=== PATIENT | female | born 1935 | race Caucasian/White ===

== ENCOUNTER 2017-07-20 00:38 | Inpatient (IN) | payer OTHER ==
[~2017-07-20] VITALS: Ht 147.3 cm; Wt 67.6 kg
[2017-07-20] VITALS (36 sets, daily range): BP systolic 54–143; BP diastolic 42–109; PULSE 88–94; TEMP 37.1–37.4; O2SAT 94–100; Ht 147.3 cm; Wt 67.6 kg
[2017-07-20] MEDS ORDERED: SODIUM CHLORIDE 0.9% 1000ML 1,000 ML IV STA (00:48)
[2017-07-20] MEDS ORDERED: ONDANSETRON INJ 2 MG/ML 2 ML VIAL ONE ×2 (01:01→12:47)
[2017-07-20] MEDS ORDERED: ONDANSETRON INJ 2 MG/ML 2 ML VIAL IV STA (01:01)
[2017-07-20] MEDS: METOPROLOL TARTRATE 1 MG/ML VIAL IV STA ×2 (01:07→01:17)
[2017-07-20] MEDS ORDERED: LORAZEPAM 2 MG/ML 1 ML VIAL IV STA (01:15)
[2017-07-20] MEDS ORDERED: ATOR-22 PO (01:50)
[2017-07-20] MEDS ORDERED: MAGN400T6 PO (01:50)
[2017-07-20] MEDS ORDERED: LISI-725 PO (01:50)
[2017-07-20] MEDS ORDERED: LEVO50TA PO (01:50)
[2017-07-20] MEDS ORDERED: AMIO200T4 PO (01:51)
[2017-07-20] MEDS ORDERED: HYDR25TA4 PO (01:51)
[2017-07-20] MEDS ORDERED: B-COTAB18 PO (01:52)
[2017-07-20] MEDS ORDERED: DOCU-94 PO (01:52)
[2017-07-20] MEDS ORDERED: CMD/25 PO (01:53)
[2017-07-20] MEDS ORDERED: ACET-749 PO (01:53)
[2017-07-20 02:00] LABS: URINE APPEARANCE TURBID (CLEAR); URINE BILIRUBIN NEG (NEG); URINE COLOR DK YELLOW; URINE EPITHELIAL CELL AUTO >30 /lpf (0-5); URINE NITRITE NEG (NEG); URINE SPECIFIC GRAVITY 1.025 (1.000-1.030); UROBILINOGEN NEG (NEG)
[2017-07-20 02:02] LABS: HEMATOCRIT 35.8 % (37-47); MEAN CELL VOLUME 93.7 fL (80-100); MEAN CORPUSCULAR HEMOGLOBIN 29.1 pg (25-34); MEAN PLATELET VOLUME 9.9 fL (7.4-10.4); PLATELET COUNT 176 K/uL (130-400); RED BLOOD COUNT 3.82 M/uL (4.2-5.4); WHITE BLOOD COUNT 13.97 K/uL (4.8-10.8)
[2017-07-20 02:04] LABS: MANUAL MICROSCOPIC REQUIRED? NO; REVIEW REQ? NO
[2017-07-20 02:13] LABS: INR 2.2 (0.9-1.1); PROTHROMBIN TIME (PATIENT) 23.9 SECONDS (9.0-12.0)
[2017-07-20 02:20] LABS: ALT/SGPT 43 U/L (12-78); AST/SGOT 37 U/L (15-37); BLOOD UREA NITROGEN 25 mg/dl (7-18); BUN/CREATININE RATIO 16.7 (10-20); CALCIUM 7.6 mg/dl (8.5-10.1); CARBON DIOXIDE 25 mmol/L (21-32); CHLORIDE 112 mmol/L (98-107); GLUCOSE 157 mg/dl (70-99); MAGNESIUM 1.3 mg/dl (1.8-2.4); POTASSIUM 3.3 mmol/L (3.5-5.1); SODIUM 144 mmol/L (136-145)
[2017-07-20 02:31] LABS: ALKALINE PHOSPHATASE 146 U/L (45-117)
[2017-07-20] MEDS ORDERED: NURSING VERBAL MED ORDER ONE ×3 (03:00→16:15)
--- NOTE | 2017-07-20 03:03 | EMERGENCY ROOM VISIT NOTE ---
History Report prepared by Shemar: Gulshan Jacobs Under the Supervision of: Dr. Zeferino Isidro M.D. First contact with patient: 00:42 Chief Complaint: HIP PAIN Stated Complaint: TRANSFER-HIP FRACTURE History of Present Illness The patient is a 82 year old female who presents to the Emergency Room by EMS with complaints of constant left hip pain beginning after a fall occurring earlier today. She was transferred from [facility] ED after being found to have a left hip fracture. She was given 2 mg of Dilaudid while there. The patient also complains of nausea. She denies any chest pain. She has a history of a-fib. The patient's fall was witnessed by her son. He reported that the patient was only on the ground for a brief period of time. The patient's daughter notes that the patient has a history of many fractures due to osteoporosis and multiple falls. Source of History: patient Onset: earlier today Position: pelvis (left hip) Timing: constant Associated Symptoms: + nausea, No chest pain Review of Systems See HPI for pertinent positives & negatives. A total of 10 systems reviewed and were otherwise negative. Past Medical & Surgical Medical Problems: (1) Atrial fibrillation (2) Atrial fibrillation with rapid ventricular response Family History No pertinent family history stated. Social History Occupation Status: retired Current/Historical Medications Scheduled Amiodarone Hcl (Cordarone), 200 MG PO DAILY Atorvastatin (Lipitor), 20 MG PO DAILY B-Complex Vitamins (Vitamin B Complex), 1 TAB PO daily @ noon Docusate Sodium (Colace), 100 MG PO DAILY Hydrochlorothiazide (Hctz), 25 MG PO DAILY Levothyroxine Sodium (Synthroid), 50 MCG PO DAILY Lisinopril (Zestril), 20 MG PO DAILY Magnesium Oxide (Mag-Ox), 400 MG PO DAILY Warfarin Sod (Coumadin), 2.5 MG PO 3XWK Scheduled PRN Acetaminophen/Codeine (Tylenol W/Codeine #3), 2 TAB PO Q4 PRN for Pain Allergies Coded Allergies: No Known Allergies (Unverified , 07/20/17) Physical Exam Vital Signs Date Time Temp Pulse Resp B/P (MAP) Pulse Ox O2 Delivery O2 Flow Rate FiO2 07/20/17 03:36 105 17 100 Nasal Cannula 3.0 07/20/17 03:31 122/74 07/20/17 03:07 101 16 100 Nasal Cannula 3.0 07/20/17 03:01 123/84 07/20/17 02:37 107 16 100 Nasal Cannula 3.0 07/20/17 02:31 116/87 07/20/17 02:30 108 20 116/87 100 07/20/17 02:07 112 12 100 Nasal Cannula 3.0 07/20/17 01:37 90 14 98 Nasal Cannula 3.0 07/20/17 01:34 93 Nasal Cannula 3.0 07/20/17 01:33 94 Nasal Cannula 3.0 07/20/17 01:32 100 17 83 Room Air 07/20/17 01:31 133/85 07/20/17 01:30 94 14 92 07/20/17 01:28 99 15 07/20/17 01:26 78 19 07/20/17 01:24 95 16 92 07/20/17 01:22 96 24 07/20/17 01:20 93 25 07/20/17 01:19 130/71 07/20/17 01:18 95 91 07/20/17 01:17 128/87 07/20/17 01:17 114 104/67 07/20/17 01:16 101 19 91 07/20/17 01:15 121/66 07/20/17 01:14 88 18 91 07/20/17 01:13 114/69 07/20/17 01:12 101 16 07/20/17 01:10 103 14 94 07/20/17 01:09 104/68 07/20/17 01:08 121 15 97 07/20/17 01:06 133 20 92 07/20/17 01:04 128 21 95 07/20/17 01:02 142 21 95 07/20/17 01:00 141 19 103/85 90 07/20/17 00:58 145 21 94 07/20/17 00:56 147 16 94 07/20/17 00:54 150 24 Room Air 07/20/17 00:52 137 20 91 07/20/17 00:50 146 21 Room Air 07/20/17 00:48 145 12 94 07/20/17 00:47 147 07/20/17 00:46 149 15 93 07/20/17 00:42 100/65 07/20/17 00:38 36.7 127 18 100/65 93 Room Air Physical Exam GENERAL: Patient is sleepy and nauseous appearing, and in no acute distress. HEENT: No acute trauma, normocephalic atraumatic, mucous membranes moist, no nasal congestion, no scleral icterus. NECK: No stridor, no adenopathy, no meningismus, trachea is midline. LUNGS: No dyspnea. Clear to auscultation and equal bilaterally. No wheeze, no rhonchi. HEART: Tachycardic rate with an irregular rhythm. No murmurs, rubs, gallops appreciated. ABDOMEN: Soft, nontender, bowel sounds positive, no masses appreciated, no peritonitis. BACK: No midline tenderness, no CVA tenderness EXTREMITIES: No cyanosis, no edema. Mild shortening and internal rotation of the left leg. NEUROLOGIC: Alert and oriented, no acute motor or sensory deficits, no focal weakness, cranial nerves grossly intact. SKIN: No rash, no jaundice, no diaphoresis. Medical Decision & Procedures ER Provider Diagnostic Interpretation: One View Chest X-ray interpreted by me: Rotated. Moderate cardiomegaly. Mild CHF findings. No acute infiltrate, effusion, or fracture appreciated. One View Pelvis X-ray interpreted by me: Left intratrochanteric hip fracture with mild displacement. CT results per statrad and my review. CT HEAD: No evidence of acute infarct, hemorrhage, mass effect or edema. Chronic small vessel ischemic disease and senescent changes. No acute calvarial abnormality. Mild mucosal thickening in the paranasal sinuses. Laboratory Results 07/20/17 01:52 Red Blood Count 3.82, Mean Corpuscular Volume 93.7, Mean Corpuscular Hemoglobin 29.1, Mean Corpuscular Hemoglobin Concent 31.0, Mean Platelet Volume 9.9, Neutrophils (%) (Auto) 86.1, Lymphocytes (%) (Auto) 4.9, Monocytes (%) (Auto) 8.5, Eosinophils (%) (Auto) 0.0, Basophils (%) (Auto) 0.1, Neutrophils # (Auto) 12.04, Lymphocytes # (Auto) 0.68, Monocytes # (Auto) 1.19, Eosinophils # (Auto) 0.00, Basophils # (Auto) 0.01 07/20/17 01:52 Test 07/20/17 01:43 07/20/17 01:52 Urine Color DK YELLOW Urine Appearance TURBID (CLEAR) Urine pH 5.0 (4.5-7.5) Urine Specific [place] 1.025 (1.000-1.030) Urine Protein 1+ (NEG) Urine Glucose (UA) NEG (NEG) Urine Ketones TRACE (NEG) Urine Occult Blood 3+ (NEG) Urine Nitrite NEG (NEG) Urine Bilirubin NEG (NEG) Urine Urobilinogen NEG (NEG) Urine Leukocyte Esterase TRACE (NEG) Urine WBC (Auto) 10-30 /hpf (0-5) Urine RBC (Auto) >30 /hpf (0-4) Urine Hyaline Casts (Auto) 1-5 /lpf (0-5) Urine Epithelial Cells (Auto) >30 /lpf (0-5) Urine Bacteria (Auto) NEG (NEG) White Blood Count 13.97 K/uL (4.8-10.8) Red Blood Count 3.82 M/uL (4.2-5.4) Hemoglobin 11.1 g/dL (12.0-16.0) Hematocrit 35.8 % (37-47) Mean Corpuscular Volume 93.7 fL (80-100) Mean Corpuscular Hemoglobin 29.1 pg (25-34) Mean Corpuscular Hemoglobin Concent 31.0 g/dl (32-36) Platelet Count 176 K/uL (130-400) Mean Platelet Volume 9.9 fL (7.4-10.4) Neutrophils (%) (Auto) 86.1 % Lymphocytes (%) (Auto) 4.9 % Monocytes (%) (Auto) 8.5 % Eosinophils (%) (Auto) 0.0 % Basophils (%) (Auto) 0.1 % Neutrophils # (Auto) 12.04 K/uL (1.4-6.5) Lymphocytes # (Auto) 0.68 K/uL (1.2-3.4) Monocytes # (Auto) 1.19 K/uL (0.11-0.59) Eosinophils # (Auto) 0.00 K/uL (0-0.5) Basophils # (Auto) 0.01 K/uL (0-0.2) RDW Standard Deviation 44.9 fL (36.4-46.3) RDW Coefficient of Variation 13.3 % (11.5-14.5) Immature Granulocyte % (Auto) 0.4 % Immature Granulocyte # (Auto) 0.05 K/uL (0.00-0.02) Red Blood Cell Morphology Unremarkable Prothrombin Time 23.9 SECONDS (9.0-12.0) Prothromb Time International Ratio 2.2 (0.9-1.1) Anion Gap 7.0 mmol/L (3-11) Est Creatinine Clear Calc Drug Dose 22.0 ml/min Estimated GFR () 36.7 Estimated GFR (Non- 31.7 BUN/Creatinine Ratio 16.7 (10-20) Calcium Level 7.6 mg/dl (8.5-10.1) Magnesium Level 1.3 mg/dl (1.8-2.4) Total Bilirubin 0.5 mg/dl (0.2-1) Direct Bilirubin 0.1 mg/dl (0-0.2) Aspartate Amino Transf (AST/SGOT) 37 U/L (15-37) Alanine Aminotransferase (ALT/SGPT) 43 U/L (12-78) Alkaline Phosphatase 146 U/L (45-117) Troponin I < 0.015 ng/ml (0-0.045) Pro-B-Type Natriuretic Peptide 1333 pg/ml (0-1800) Total Protein 5.4 gm/dl (6.4-8.2) Albumin 2.7 gm/dl (3.4-5.0) Thyroid Stimulating Hormone (TSH) 1.930 uIu/ml (0.300-4.500) Laboratory results as reviewed by me. Medications Administered Medications (Trade) Dose Ordered Sig/Margarette Route Start Time Stop Time Status Last Admin Dose Admin Sodium Chloride 1,000 ml @ 999 mls/hr Q1H1M STAT IV 07/20/17 00:48 07/20/17 01:48 DC 07/20/17 01:05 999 MLS/HR Metoprolol Tartrate (Lopressor Iv) 5 mg NOW STAT IV 07/20/17 00:48 07/20/17 00:49 DC 07/20/17 01:17 2 MG Ondansetron HCl (Zofran Inj) 4 mg NOW STAT IV 07/20/17 01:01 07/20/17 01:02 DC 07/20/17 01:05 4 MG Lorazepam (Ativan Inj) 0.5 mg NOW STAT IV 07/20/17 01:15 07/20/17 01:16 DC 07/20/17 01:40 0.5 MG Miscellaneous Information (Nursing Verbal Med Order) 1 ea ONE ONCE N/A 07/20/17 03:00 07/20/17 03:01 DC 07/20/17 03:10 1 EA ECG Indication: other (fall) Rate (beats per minute): 115 Rhythm: atrial fibrillation (with RVR) Findings: no acute ischemic change, other (Non-specific ST changes) Comparison ECG Date: no prior available ED Course 0045: The patient was evaluated in room B7. A complete history and physical exam was performed. 0048: Ordered Lopressor 5 mg IV, Sodium Chloride 1000 ml @ 999 mls/hr. 0058: I checked in on the patient. I spoke with her daughter at bedside. She explains that the patient is currently on Amiodarone and Coumadin for her A- fib. The patient was previously on Flecainide. The patient's daughter states that the patient has not had her evening medications tonight. 0101: Ordered Zofran Inj 4 mg IV. 0115: I reassessed the patient. Her heart rate is now 85 and irregular. She is requesting her normal dose of Ativan. Ordered Ativan Inj 0.5 mg IV. 0230: Upon reevaluation, the patient is sleeping and in no distress. Discussed results and treatment plan with the patient's daughter. She verbalized understanding and agreement with the treatment plan. The patient will be evaluated for further management. Medical Decision Differential: Sepsis, Infectious (UTI/Pneumonia/Meningitis/etc), Metabolic/ Electrolyte Abnormality, Cardiac, Hepatic, Endocrine, Toxicologic, Neurologic, amongst other pathologies entertained. 82 yr old female arrives from OSH for evaluation of left hip fracture. On arrival in Afib RVR with hypotension. Given small dose Lopressor with HR improvement and IV fluids for hypotension. Zofran and then small dose ativan for persistent nausea which she already takes regularly. Films here with left intratroch fracture. INR elevated consistent with Coumadin use. Minor renal insufficiency which would presume chronic. Will need medically cleared before OR for hip fracture. Medication Reconcilliation Current Medication List: was personally reviewed by me Blood Pressure Screening Patient's blood pressure: Normal blood pressure Blood pressure disposition: Did not require urgent referral Consults Time Called: 0225 Consulting Physician: [place]. [place] [place] Call: [phone] Discussed the patient's case. The patient will be evaluated for further treatment and disposition. Impression Primary Impression: Intertrochanteric fracture of left hip Additional Impressions: Atrial fibrillation with rapid ventricular response Fall Scribe Attestation The scribe's documentation has been prepared under my direction and personally reviewed by me in its entirety. I confirm that the note above accurately reflects all work, treatment, procedures, and medical decision making performed by me. Departure Information Dispostion Being Evaluated By Hospitalist Patient Instructions My [facility] Problem Qualifiers
[2017-07-20 03:06] LABS: BASO % 0.1 %; BASO ABS # 0.01 K/uL (0-0.2); COMPLETE YES; IG% 0.4 %; LYMPH % 4.9 %; LYMPH ABS # 0.68 K/uL (1.2-3.4); MONO % 8.5 %; NEUT % 86.1 %
--- NOTE | 2017-07-20 03:34 | History and Physical ---
History & Physical Date & Time of Service: Jul 20, 2017 at 03:26 Chief Complaint: Transfer-Hip Fracture Primary Care Physician: Ty Guidry M.D. History of Present Illness Source: patient 82 y/o F Hx AF, CHF, HTN, HPL, hypothyroid. Suffered a fall earlier in day sustaining a L intertrochanteric fracture. Pt was transferred from [facility] for treatment. The pt's HR was 150 on arrival to the ER. She responded to a small dose of IV Cardizem. She denies symptoms preceding her fall such as CP, palpitations, lightheadedness. Past Medical/Surgical History Medical Problems: (1) Atrial fibrillation Status: Chronic 2) CHF - no specifics available - this may have been reported due to pulmonary edema owing to CHF rather than a reduced EF 3) HTN 4) HPL 5) Hypothyroidism 6) GERD Social History Smoking Status: Former Smoker Occupational Status: retired Allergies Coded Allergies: No Known Allergies (Unverified , 07/20/17) Home Medications Scheduled Amiodarone Hcl (Cordarone), 200 MG PO DAILY Atorvastatin (Lipitor), 20 MG PO DAILY B-Complex Vitamins (Vitamin B Complex), 1 TAB PO daily @ noon Docusate Sodium (Colace), 100 MG PO DAILY Hydrochlorothiazide (Hctz), 25 MG PO DAILY Levothyroxine Sodium (Synthroid), 50 MCG PO DAILY Lisinopril (Zestril), 20 MG PO DAILY Magnesium Oxide (Mag-Ox), 400 MG PO DAILY Warfarin Sod (Coumadin), 2.5 MG PO 3XWK Scheduled PRN Acetaminophen/Codeine (Tylenol W/Codeine #3), 2 TAB PO Q4 PRN for Pain Review of Systems Constitutional: No fever, No chills, No sweats Eyes: No worsening of vision ENT: No hearing loss, No unusual epistaxis, No nasal symptoms Respiratory: No cough, No wheezing Cardiovascular: No chest pain, No orthopnea, No PND Abdomen: No pain, No nausea, No vomiting Musculoskeletal: + joint pain, + muscle pain (Pain at L hip ) Genitourinary - Female: No dysuria, No urinary frequency, No urinary urgency Neurologic: No memory loss, No paralysis, No weakness Psychiatric: No depression symptoms Endocrine: No fatigue Hematologic / Lymphatic: No abnormal bleeding/bruising Integumentary: No rash Allergic / Immunologic: No environmental allergies Physical Exam Vital Signs Date Time Temp Pulse Resp B/P (MAP) Pulse Ox O2 Delivery O2 Flow Rate FiO2 07/20/17 02:30 108 20 116/87 100 07/20/17 01:34 93 Nasal Cannula 3.0 07/20/17 01:32 100 17 83 Room Air 07/20/17 01:31 133/85 07/20/17 01:30 94 14 92 07/20/17 01:28 99 15 07/20/17 01:26 78 19 07/20/17 01:24 95 16 92 07/20/17 01:22 96 24 07/20/17 01:20 93 25 07/20/17 01:19 130/71 07/20/17 01:18 95 91 07/20/17 01:17 128/87 07/20/17 01:17 114 104/67 07/20/17 01:16 101 19 91 07/20/17 01:15 121/66 07/20/17 01:14 88 18 91 07/20/17 01:13 114/69 07/20/17 01:12 101 16 07/20/17 01:10 103 14 94 07/20/17 01:09 104/68 07/20/17 01:08 121 15 97 07/20/17 01:06 133 20 92 07/20/17 01:04 128 21 95 07/20/17 01:02 142 21 95 07/20/17 01:00 141 19 103/85 90 07/20/17 00:58 145 21 94 07/20/17 00:56 147 16 94 07/20/17 00:54 150 24 Room Air 07/20/17 00:52 137 20 91 07/20/17 00:50 146 21 Room Air 07/20/17 00:48 145 12 94 07/20/17 00:47 147 07/20/17 00:46 149 15 93 07/20/17 00:42 100/65 07/20/17 00:38 36.7 127 18 100/65 93 Room Air General Appearance: + pertinent finding (Pleasant, elderly female in no acute distress) Head: normocephalic Eyes: normal inspection ENT: normal ENT inspection, pharynx normal, + pertinent finding (does not have teeth) Neck: supple, no JVD Respiratory/Chest: chest non-tender, lungs clear, normal breath sounds Cardiovascular: no edema, normal peripheral pulses, + irregularly irregular Abdomen/GI: normal bowel sounds, non tender, soft Back: normal inspection, no CVA tenderness Extremities/Musculoskelatal: no calf tenderness, normal capillary refill, no pedal edema, + pertinent finding (rotation of the LLe is noted ) Neurologic/Psych: music publisher II-XII nml as tested, no motor/sensory deficits, alert, oriented x 3 Skin: normal color, warm/dry Diagnostics Laboratory Results Results Past 24 Hours Test 07/20/17 01:43 07/20/17 01:52 Range/Units Urine Color DK YELLOW Urine Appearance TURBID CLEAR Urine pH 5.0 4.5-7.5 Urine Specific [place] 1.025 1.000-1.030 Urine Protein 1+ NEG Urine Glucose (UA) NEG NEG Urine Ketones TRACE NEG Urine Occult Blood 3+ NEG Urine Nitrite NEG NEG Urine Bilirubin NEG NEG Urine Urobilinogen NEG NEG Urine Leukocyte Esterase TRACE NEG Urine WBC (Auto) 10-30 0-5 /hpf Urine RBC (Auto) >30 0-4 /hpf Urine Hyaline Casts (Auto) 1-5 0-5 /lpf Urine Epithelial Cells (Auto) >30 0-5 /lpf Urine Bacteria (Auto) NEG NEG White Blood Count 13.97 4.8-10.8 K/uL Red Blood Count 3.82 4.2-5.4 M/uL Hemoglobin 11.1 12.0-16.0 g/dL Hematocrit 35.8 37-47 % Mean Corpuscular Volume 93.7 80-100 fL Mean Corpuscular Hemoglobin 29.1 25-34 pg Mean Corpuscular Hemoglobin Concent 31.0 32-36 g/dl Platelet Count 176 130-400 K/uL Mean Platelet Volume 9.9 7.4-10.4 fL Neutrophils (%) (Auto) 86.1 % Lymphocytes (%) (Auto) 4.9 % Monocytes (%) (Auto) 8.5 % Eosinophils (%) (Auto) 0.0 % Basophils (%) (Auto) 0.1 % Neutrophils # (Auto) 12.04 1.4-6.5 K/uL Lymphocytes # (Auto) 0.68 1.2-3.4 K/uL Monocytes # (Auto) 1.19 0.11-0.59 K/uL Eosinophils # (Auto) 0.00 0-0.5 K/uL Basophils # (Auto) 0.01 0-0.2 K/uL RDW Standard Deviation 44.9 36.4-46.3 fL RDW Coefficient of Variation 13.3 11.5-14.5 % Immature Granulocyte % (Auto) 0.4 % Immature Granulocyte # (Auto) 0.05 0.00-0.02 K/uL Red Blood Cell Morphology Unremarkable Prothrombin Time 23.9 9.0-12.0 SECONDS Prothromb Time International Ratio 2.2 0.9-1.1 Sodium Level 144 136-145 mmol/L Potassium Level 3.3 3.5-5.1 mmol/L Chloride Level 112 98-107 mmol/L Carbon Dioxide Level 25 21-32 mmol/L Anion Gap 7.0 3-11 mmol/L Blood Urea Nitrogen 25 7-18 mg/dl Creatinine 1.50 0.60-1.20 mg/dl Est Creatinine Clear Calc Drug Dose 22.0 ml/min Estimated GFR () 36.7 Estimated GFR (Non- 31.7 BUN/Creatinine Ratio 16.7 10-20 Random Glucose 157 70-99 mg/dl Calcium Level 7.6 8.5-10.1 mg/dl Magnesium Level 1.3 1.8-2.4 mg/dl Total Bilirubin 0.5 0.2-1 mg/dl Direct Bilirubin 0.1 0-0.2 mg/dl Aspartate Amino Transf (AST/SGOT) 37 15-37 U/L Alanine Aminotransferase (ALT/SGPT) 43 12-78 U/L Alkaline Phosphatase 146 45-117 U/L Troponin I < 0.015 0-0.045 ng/ml Pro-B-Type Natriuretic Peptide 1333 0-1800 pg/ml Total Protein 5.4 6.4-8.2 gm/dl Albumin 2.7 3.4-5.0 gm/dl Thyroid Stimulating Hormone (TSH) 1.930 0.300-4.500 uIu/ml Diagnostic Radiology XR: L intertrochanteric fracture - mildly displaced EKG AF, RVR - no evidence of acute ischemia Impression Assessment and Plan 82 y/o F Hx AF, CHF, HTN, HPL, TIA, hypothyroid. Suffered a fall earlier in day sustaining a L intertrochanteric fracture. Pt was transferred from [facility] for treatment. The pt's HR was 150 on arrival to the ER. She responded to a small dose of IV Cardizem. 1) Hip fracture - L intertroch. Pt to be evaluated by orthopedics. We will provide her with a dose of vitamin K. She may need plasma if surgery is to take place later in the day. I do not feel we can accurately assess her based on available information and she states that she has not seen a acquisitions logistics analyst in > 2 years. We will therefore order a complete echo AM and if abnormalities are confirmed such as a reduced EF, it would be prudent to obtain a cardiology consult. Based on available information her RCRI would be 6.6%. This may be higher if CHF is confirmed and it is presumed due to ischemia, or lower if her EF is normal. 2) HTN - HCTZ and Lisinopril are held pending ortho eval - can be given AM if surgery is postponed. 3) AF - she is normally treated with Amio which we will continue - her rapid rate resolved with a low dose of Diltiazem. Her INR is therapeutic on her current dose of Coumadin. 4) HPL - cont Statin 5) Hx TIA - ASA held - cont Statin therapy 6) Creatinine is elevated at 1.5 - unclear if this is chronic - we will provide IVF and repeat AM - may need to contact her MD for baseline. Full code - Coumadin prophylaxis Total time for this admit including review of labs, meds, imaging, EKG - review of chart from [facility] - discussion with pt, daughter and ER attending 39 min Level of Care Telemetry Resuscitation Status FULL RESUSCITATION VTE Prophylaxis Given or contraindicated: Warfarin (Coumadin)
[2017-07-20] MEDS ORDERED: NALOXONE HCL 0.4 MG/1 ML VIAL/CARP IV PRN (03:45)
[2017-07-20] MEDS ORDERED: SOD PHOSPHATE/SOD BIPHOSPHATE ENEMA 132 ML BTL PR PRN (03:45)
[2017-07-20] MEDS ORDERED: MAGNESIUM HYDROXIDE SUSP 30 ML UDC PO PRN (03:45)
[2017-07-20] MEDS ORDERED: MoRPHine SULFATE 4 MG/ML 1 ML CARP\\VIAL IV PRN (03:45)
[2017-07-20] MEDS ORDERED: OXYCODONE HCL IR 5 MG TAB (IMMEDIATE RELEASE) PO PRN ×3 (03:45→17:30)
[2017-07-20] MEDS ORDERED: POLYETHYLENE (MIRALAX) 17 GM PACK PO PRN (03:45)
[2017-07-20] MEDS ORDERED: BISACODYL 10 MG SUPP PR PRN (03:45)
[2017-07-20] MEDS ORDERED: PHYTONADIONE INJ 5 MG in SODIUM CHLORIDE 0.9% 50ML 50 ML IV ONE (04:00)
[2017-07-20] MEDS ORDERED: NSS + 20MEQ KCL 1000ML 1,000 ML IV SCH (04:30)
[2017-07-20] MEDS ORDERED: CEFAZOLIN IV 2,000 MG in DEXTROSE 5% 50ML 50 ML IV SCH (06:00)
--- NOTE | 2017-07-20 06:35 | DIAGNOSTIC IMAGING REPORT ---
CT HEAD WITHOUT CONTRAST (CT) CLINICAL HISTORY: Head trauma. Patient on Coumadin. COMPARISON STUDY: No previous studies for comparison. TECHNIQUE: Axial CT of the brain is performed from the vertex to the skull base. IV contrast was not administered for this examination. A dose lowering technique was utilized adhering to the principles of ALARA. CT DOSE: 537.48 mGy.cm FINDINGS: No intra or extra-axial mass lesions are visualized. There is no CT evidence of acute cortical infarction. There is no evidence of midline shift. There is no acute hemorrhage. No calvarial fractures are visualized. There are minor white matter hypodensities likely on a small vessel basis. There is no evidence of pathologic ventricular dilatation. There is mucosal thickening within the sphenoid maxillary ethmoid and frontal sinuses. There are polypoid densities of the nasal cavity. IMPRESSION: No acute intracranial findings Electronically signed by: Greg Bernabe M.D. 07/20/2017 6:33 AM Dictated Date/Time: 07/20/2017 6:32 AM
--- NOTE | 2017-07-20 06:57 | DIAGNOSTIC IMAGING REPORT ---
CHEST ONE VIEW PORTABLE CLINICAL HISTORY: 82 years-old Female presenting with Fall/Trauma. TECHNIQUE: Portable upright AP view of the chest was obtained. COMPARISON: None. FINDINGS: Mildly low lung volumes with prominence of the artifacts silhouette. Suggestion of hazy bilateral lung opacities with linear opacities at the left lung base. Osteopenia. Degenerative changes of the spine with the curvature in the upper lumbar region. Upper abdomen normal. IMPRESSION: 1. Mildly low lung volumes with hypoventilatory changes. Apparent hazy bilateral opacities could relate to overlapping structures secondary to patient body habitus. Left basilar atelectasis. Electronically signed by: Shaun Allison M.D. 07/20/2017 6:56 AM Dictated Date/Time: 07/20/2017 6:54 AM
[2017-07-20 06:58] LABS: HEMATOCRIT 32.4 % (37-47); MEAN CORPUSCULAR HEMOGLOBIN 30.1 pg (25-34); MEAN CORPUSCULAR HGB CONC 32.7 g/dl (32-36); MEAN PLATELET VOLUME 9.9 fL (7.4-10.4); PLATELET COUNT 147 K/uL (130-400); RED BLOOD COUNT 3.52 M/uL (4.2-5.4); WHITE BLOOD COUNT 11.82 K/uL (4.8-10.8)
--- NOTE | 2017-07-20 07:08 | DIAGNOSTIC IMAGING REPORT ---
PELVIS 1 OR 2 VIEW ROUTINE CLINICAL HISTORY: 82 years-old Female presenting with fall/trauma, known left hip fracture. TECHNIQUE: Single frontal view of the pelvis was obtained. COMPARISON: Correlation made to plain radiographs of the left hip performed the previous day at an outside hospital. FINDINGS: Osteopenia suggested. Evidence of an intertrochanteric left femoral neck fracture with up to 8 mm of diastases at the fracture plane. No abnormal angulation. Femoral heads remains congruent in the acetabula. No additional pelvic fracture is evident. IMPRESSION: Redemonstration of the intertrochanteric left femoral neck fracture with up to 8 mm of diastases at the fracture plane. Electronically signed by: Shaun Allison M.D. 07/20/2017 7:06 AM Dictated Date/Time: 07/20/2017 7:04 AM
[2017-07-20 07:15] LABS: BUN/CREATININE RATIO 16.1 (10-20); CALCIUM 8.3 mg/dl (8.5-10.1); CREATININE 1.5 mg/dl (0.60-1.20); MAGNESIUM 1.5 mg/dl (1.8-2.4); POTASSIUM 3.6 mmol/L (3.5-5.1)
[2017-07-20 07:23] LABS: INR 1.6 (0.9-1.1); PROTHROMBIN TIME (PATIENT) 17.8 SECONDS (9.0-12.0)
[2017-07-20] MEDS ORDERED: PERFLUTREN LIPID MICROSPHERE (DEFINITY) IV ONE (08:58)
[2017-07-20] MEDS ORDERED: MAGNESIUM SULFATE 1GM / D5W 1 GM BAG IV STA (09:14)
[2017-07-20] MEDS: AMIODARONE 200 MG TAB PO SCH (09:38)
[2017-07-20] MEDS: DOCUSATE SODIUM 100 MG CAP PO SCH (09:38)
[2017-07-20] MEDS: MAGNESIUM OXIDE 400 MG TAB PO SCH (09:39)
[2017-07-20] MEDS: ATORVASTATIN 20 MG TAB PO SCH (09:39)
[2017-07-20] MEDS: LEVOTHYROXINE 50 MCG TAB PO SCH (09:39)
[2017-07-20] MEDS: MoRPHine SULFATE 2 MG/ML CARP IV PRN ×3 (09:47→14:25)
[2017-07-20] MEDS: MAGNESIUM SULFATE 1GM / D5W 1 GM in PREMIXED IN D5W 100 ML IV SCH ×2 (10:28→11:37)
[2017-07-20] MEDS ORDERED: PNEUMOCOCCAL POLYSACCHARIDES 25 MCG/0.5 ML VIAL/SYR IM. ONE (12:00)
[2017-07-20] MEDS ORDERED: PNEUMOCOCCAL ADMINISTRATION CHARGE ONE (12:00)
[2017-07-20] MEDS ORDERED: CEFAZOLIN 2000 MG/60 ML D5W IV SCH (13:30)
--- NOTE | 2017-07-20 13:35 | ECHOCARDIOGRAM REPORT ---
*NOTICE TO RECEIVING REPUBLICAN AGENCY This information is strictly Confidential and protected under [place] law. [place] law prohibits you from making any further disclosure of this information unless further disclosure is expressly permitted by the written consent of the person to whom it pertains or is authorized by law. A general authorization for the release of medical or other information is not sufficient for this purpose. Hospital accepts no responsibility if the information is made available to any other person, INCLUDING THE PATIENT. Interpretation Summary * Name: LUIS VYAS Study Date: 07/20/2017 08:33 AM BP: 100/56 mmHg * Patient Location: C.EDINP\S\EDINP 1\S\1 HR: 83 * : 1935 (M/d/yyy) Gender: Female * Age: 82 yrs Ethnicity: CA Weight: 139 lb * Ordering Physician: Isaias Hurtado * Performed By: Lauren López * * Reason For Study: CHF * -- Conclusions -- * The study was technically difficult. * Limited views were obtained. * Left ventricular systolic function is normal. * There are regional wall motion abnormalities as specified. * Aortic valve sclerosis mild, without significant aortic valvular stenosis. * Mild aortic regurgitation. * Right ventricular systolic pressure is elevated at 30-40mmHg. Procedure Details * A complete two-dimensional transthoracic echocardiogram was performed (2D, M-mode, Doppler and color flow Doppler). * The study was technically difficult. * There were technical limitations due to patient'spoor positioning * A contrast injection of Definity was performed to improve assessment of LV function. * Contrast was injected into an intravenous site in the left arm. * One vial of Definity ultrasound contrast was diluted in normal saline to a total volume of 10 ml. A total of '3' ml of solution was administered during imaging. * Lot # [id number] of Definity utilized for procedure. * Expiration date 08/24. * The attending nurse who injected the contrast agent was GORGE SIDDIQI RN. * Limited views were obtained. Left Ventricle * Ejection Fraction = 60-65%. * Left ventricular systolic function is normal. * There are regional wall motion abnormalities as specified. * Basal posterior segment is dyskinetic. Mitral Valve * The mitral valve is not well visualized. Tricuspid Valve * The tricuspid valve is not well visualized. * There is mild tricuspid regurgitation. * Right ventricular systolic pressure is elevated at 30-40mmHg. Aortic Valve * The aortic valve is trileaflet. * Aortic valve sclerosis mild, without significant aortic valvular stenosis. * No hemodynamically significant valvular aortic stenosis. * Mild aortic regurgitation. Pericardium/Pleural * There is no pericardial effusion. MMode 2D Measurements and Calculations IVSd 1.5 cm IVSs 1.4 cm LVIDd 2.9 cm LVIDs 2.0 cm LVPWd 0.41 cm LVPWs 1.1 cm IVS/LVPW 3.8 FS 31.6 % EDV(Teich) 33.0 ml ESV(Teich) 12.8 ml EF(Teich) 61.3 % EDV(cubed) 25.1 ml ESV(cubed) 8.0 ml EF(cubed) 68.0 % % IVS thick -9.56 % % LVPW thick 170.9 % LV mass(C)d 76.6 grams LV mass(C)s 69.9 grams SV(Teich) 20.2 ml SV(cubed) 17.1 ml ACS 1.0 cm asc Aorta Diam 2.4 cm LVOT diam 1.4 cm LVOT area 1.5 cm\S\2 LVAd ap4 22.1 cm\S\2 LVLd ap4 6.6 cm EDV(MOD-sp4) 62.4 ml EDV(sp4-el) 62.4 ml LVAs ap4 11.0 cm\S\2 LVLs ap4 4.9 cm ESV(MOD-sp4) 19.8 ml ESV(sp4-el) 20.7 ml EF(MOD-sp4) 68.2 % EF(sp4-el) 66.8 % LVAd ap2 17.9 cm\S\2 LVLd ap2 6.3 cm EDV(MOD-sp2) 42.8 ml EDV(sp2-el) 42.8 ml LVAs ap2 9.9 cm\S\2 LVLs ap2 5.2 cm ESV(MOD-sp2) 16.7 ml ESV(sp2-el) 16.1 ml EF(MOD-sp2) 61.0 % EF(sp2-el) 62.3 % LVLd %diff -4.46 % EDV(MOD-bp) 52.5 ml LVLs %diff 4.8 % ESV(MOD-bp) 17.9 ml EF(MOD-bp) 65.9 % SV(MOD-sp4) 42.5 ml SV(MOD-sp2) 26.1 ml SV(MOD-bp) 34.6 ml SV(sp4-el) 41.7 ml SV(sp2-el) 26.7 ml Doppler Measurements and Calculations MV E max eder 86.8 cm/sec MV A max eder 37.2 cm/sec MV E/A 2.3 MV dec time 0.12 sec Ao V2 max 135.1 cm/sec Ao max PG 7.3 mmHg Ao max PG (full) 5.7 mmHg SANDHYA(V,A) 0.72 cm\S\2 SANDHYA(V,D) 0.72 cm\S\2 AI max eder 341.7 cm/sec AI max PG 46.7 mmHg AI dec slope 131.9 cm/sec\S\2 AI P1/2t 758.5 msec LV V1 max PG 1.6 mmHg LV V1 max 64.2 cm/sec PA V2 max 69.5 cm/sec PA max PG 1.9 mmHg TR max eder 289.6 cm/sec
--- NOTE | 2017-07-20 14:46 | DIAGNOSTIC IMAGING REPORT ---
KUB CLINICAL HISTORY: 82 years-old Female presenting with r/o ileus, etc. TECHNIQUE: Single supine view of the abdomen was obtained. COMPARISON: None. FINDINGS: Image quality is limited due to patient body habitus. Within this limitation, nonobstructive bowel gas pattern. No gross pneumoperitoneum. Scoliotic curvature of the lumbar spine. Osteopenia may be present. Intertrochanteric fracture of the left femoral neck again noted with approximate 8 mm of diastases at the fracture plane. IMPRESSION: 1. No convincing evidence of bowel obstruction or ileus allowing for limited image quality. Electronically signed by: Shaun Allison M.D. 07/20/2017 2:44 PM Dictated Date/Time: 07/20/2017 2:42 PM
[2017-07-20] MEDS ORDERED: FENTANYL CITRATE INJ 50 MCG/1 ML 2 ML VIAL ONE ×2 (14:49→18:41)
[2017-07-20] MEDS ORDERED: PROPOFOL IV EMULSION 10 MG/ML 20 ML VIAL IV ONE (14:49)
[2017-07-20] MEDS ORDERED: LIDOCAINE HCL 2% 2 ML VIAL (20MG/ML) ONE (14:49)
[2017-07-20] MEDS ORDERED: ROCURONIUM BROMIDE 10 MG/ML 5 ML VIAL IV ONE (14:50)
--- NOTE | 2017-07-20 15:13 | CONSULTATION REPORT ---
DATE OF CONSULTATION: 07/20/2017 DATE OF CONSULTATION: 07/20/2017 CHIEF COMPLAINT: Left hip injury. HISTORY OF PRESENT ILLNESS: This is an 82-year-old female who sustained a fall at her home last evening. She noted having significant hip pain and unable to ambulate. She was transported to the Emergency Department where she was diagnosed with an intratrochanteric hip fracture on the left. PAST MEDICAL HISTORY: Atrial fibrillation, CHF, hypertension, hyperlipidemia, hypothyroidism and GERD. LABORATORY DATA: Laboratory studies on admission, white cells 11.82, BUN 24, creatinine 1.5, INR is 1.6 after some vitamin K. HOME MEDICATIONS: Please see admitting teams history and physical. REVIEW OF SYSTEMS: The patient denied any head injury or any other joint injuries as a result of her fall. SOCIAL HISTORY: She is a former smoker, nondrinker. She is retired, living at home. PHYSICAL EXAMINATION: VITAL SIGNS: Temperature 37.2, pulse 94, respiration rate 20, blood pressure 115/71, pulse ox 96 with nasal cannula. GENERAL: Well-developed, well-nourished 82-year-old female in no acute distress. She is alert and oriented. She is somewhat sleepy but she does answer appropriately. HEAD, EYES, EARS, NOSE, AND THROAT: Normocephalic, atraumatic. Extraocular motions are intact. Pupils are equal and reactive to light. HEART: Regular irregular heartbeat is noted. ABDOMEN: She has no tenderness in the bowels and abdomen. LUNGS: Clear with normal breath sounds. EXTREMITIES: Left lower extremity is externally rotated. Range of motion was deferred at the hip. She had no calf tenderness. She was able to wiggle her toes and distally her neurologic exam was intact. DIAGNOSES: Left hip intertrochanteric fracture with a history of Afib, congestive heart failure, hypertension, hyperlipidemia, hypothyroidism and gastroesophageal reflux disease. PLAN: Orthopedically, patient will be set up for an ORIF of her left intertrochanteric hip fracture with a short trochanteric nail. Necessary consent form, preoperative testing and clearances will be obtained. This will be done in the near future today or tomorrow. [facility]
[2017-07-20] MEDS: SODIUM CHLORIDE 0.9% 1000ML 1,000 ML IV SCH (16:15)
[2017-07-20] MEDS ORDERED: ALBUMIN HUMAN 5% 12.5 GM/250 ML VIAL IV ONE (17:17)
[2017-07-20] MEDS ORDERED: ONDANSETRON INJ 2 MG/ML 2 ML VIAL IV PRN ×2 (17:30→18:45)
[2017-07-20] MEDS ORDERED: COUGH DROP (SUGAR FREE) LOZ 24 LOZ/1 BOX PO PRN (17:30)
--- NOTE | 2017-07-20 18:27 | [facility] Post Operative Brief Note ---
Immediate Operative Summary Operative Date Jul 20, 2017. Pre-Operative Diagnosis Left intertrochanteric hip fracture Post-Operative Diagnosis Left intertrochanteric hip fracture Procedure(s) Performed Open Reduction Internal Fixation Left Hip with Left Troch Nail Surgeon Dr. Garcia Finnish [employer] Surgeon(s) tiffani MARTINEZ Estimated Blood Loss 25ml Findings OSTEOPOROSIS PROXIMAL Specimens None Drains none Anesthesia general Complication(s) None Disposition Recovery Room / PACU
[2017-07-20] MEDS ORDERED: LABETALOL HCL IV 5 MG/ML 20ML IV PRN (18:45)
[2017-07-20] MEDS ORDERED: HYDROmorphone INJ 1 MG/ML SYR IV PRN (18:45)
[2017-07-20] MEDS ORDERED: ATROPINE SULFATE 0.1 MG/ML 5ML SYR IV PRN (18:45)
[2017-07-20] MEDS ORDERED: FENTANYL CITRATE INJ 50 MCG/1 ML 2 ML VIAL IV PRN (18:45)
[2017-07-20] MEDS ORDERED: MEPERIDINE HCL 25 MG/ML CARP IV PRN (18:45)
[2017-07-20] MEDS ORDERED: EpHEDrine SULFATE INJ 50 MG/ML AMP IV PRN (18:45)
[2017-07-20] MEDS ORDERED: LABETALOL HCL IV 5 MG/ML 20ML IV ONE (18:52)
[2017-07-20] MEDS ORDERED: ESMOLOL HCL 10 MG/ML 10 ML VIAL ONE (18:53)
[2017-07-20] MEDS ORDERED: DEXAMETHASONE SOD INJ 4 MG/ML VIAL ONE (18:54)
--- NOTE | 2017-07-20 19:08 | DIAGNOSTIC IMAGING REPORT ---
LEFT HIP OR FILMS CLINICAL HISTORY: LT TROCH NAIL COMPARISON STUDY: None FLUOROSCOPY TIME: 1 minute 20 seconds. FINDINGS: Image intensifier used for left pain IMPRESSION: Image intensifier used for left hip pinning The above report was generated using voice recognition software. It may contain grammatical, syntax or spelling errors. Electronically signed by: Doyle Crespo M.D. 07/20/2017 7:07 PM Dictated Date/Time: 07/20/2017 7:06 PM
--- NOTE | 2017-07-20 19:39 | Anesthesiology Progress Note ---
Anesthesia Post Op Note Date & Time Jul 20, 2017 at 19:39 Vital Signs Pain Intensity: 1 Vital Signs Past 12 Hours Date Time Temp Pulse Resp B/P (MAP) Pulse Ox O2 Delivery O2 Flow Rate FiO2 07/20/17 19:06 36.4 117/77 07/20/17 19:05 83 16 07/20/17 19:05 72 16 100 07/20/17 19:01 145/74 07/20/17 19:00 80 23 113/79 100 07/20/17 19:00 81 23 07/20/17 18:56 117/87 07/20/17 18:55 90 24 95 07/20/17 18:55 109 24 07/20/17 18:51 152/106 07/20/17 18:50 103 15 95 07/20/17 18:50 113 15 07/20/17 18:46 169/119 07/20/17 18:45 114 19 07/20/17 18:45 119 19 100 07/20/17 18:41 165/114 07/20/17 18:40 127 23 84 07/20/17 18:40 128 23 07/20/17 18:37 165/105 07/20/17 18:35 115 20 163/113 07/20/17 18:35 20 07/20/17 18:30 36.4 119 22 165/105 99 Oxymask 8 07/20/17 16:00 Nasal Cannula 2.0 07/20/17 15:03 37.4 88 20 93/70 (78) 98 Nasal Cannula 2.0 07/20/17 12:21 37.2 94 20 115/71 96 07/20/17 12:00 Nasal Cannula 2.0 100 07/20/17 12:00 37.2 94 20 122/75 (91) 96 Nasal Cannula 2.0 07/20/17 08:00 Nasal Cannula 2.0 100 07/20/17 08:00 37.1 88 20 115/78 98 Nasal Cannula 2.0 Notes Mental Status: alert / awake / arousable, participated in evaluation Pt Amnestic to Procedure: Yes Nausea / Vomiting: adequately controlled Pain: adequately controlled Airway Patency, RR, SpO2: stable & adequate BP & HR: stable & adequate Hydration State: stable & adequate Anesthetic Complications: no major complications apparent
[2017-07-20] MEDS: CEFAZOLIN IV 1,000 MG in DEXTROSE 5% 50ML 50 ML IV SCH (20:00)
[2017-07-20] MEDS: DOCUSATE SODIUM/SENNA 50/8.6MG TAB PO SCH (21:00)
[2017-07-20] MEDS ORDERED: DOCUSATE SODIUM/SENNA 50/8.6MG TAB PO SCH (21:00)
--- NOTE | 2017-07-20 23:02 | OPERATIVE REPORT ---
DATE OF OPERATION: 07/20/2017 INDICATION FOR THE PROCEDURE: An 82-year-old female who tripped on a step and fell down on to her left side and fractured left hip. She is unable to ambulate. She had pain in her left hip. She was transferred to [facility] from [facility]. She did have x-rays that demonstrated intertrochanteric hip fracture. She was in AFib. She did get vitamin K. INR was down to 1.6, but satisfactory for surgery. I discussed the surgical procedure with the patient at length and the patient was consented for intertrochanteric femoral nail fixation of her left hip fracture. I went over the procedure at length with her, all the risks and benefits and went over that with her daughter as well, who is power of assistant county attorney and both signed the consent. The patient did have preoperative antibiotics. She was taken to the operating room and because of her INR being 1.6, she was anesthetized under a general anesthetic. PREOPERATIVE DIAGNOSIS: Left hip intertrochanteric hip fracture, 2 part, minimally displaced. POSTOPERATIVE DIAGNOSIS: Same including, osteoporosis. PROCEDURE: ORIF with trochanteric femoral nail fixation, left intertrochanteric hip fracture. SURGEON: Dr. Garcia. LINE SERVICE TECHNICIAN: Max Pettit. ANESTHESIA: General. OPERATIVE PROCEDURE: The patient was taken to the operating room and this was under general endotracheal anesthesia. She was transferred to the fracture table and brought down to a perineal post. Max Pettit PA-C was my assistant unit forester during the beginning of the procedure only. He assisted me in positioning the patient and the reduction of the fracture. The patient was brought down to a perineal post. Her right leg was placed into a well-padded leg holding device in flexion and internal rotation. Her left hip was placed into boot traction. With hip in the abducted position, a longitudinal traction was placed. Then the hip was adducted and slightly internally rotated to neutral position. Then we placed some more traction on the leg. Then we fluoroscoped the hip and the reduction was satisfactory. The hip was noted to be moderately obese, about the upper hip area. Her left hip down to her knee was prepped and draped in usual sterile fashion using ChloraPrep. A longitudinal incision was made at the tip of the greater trochanter for about 3.5 cm. I had to make this slightly larger than normal because of her obesity. A deep layer of fat was divided down to the fascia and subcutaneous bleeders were cauterized. The fascia kwaku and the gluteus yumiko fascia was split longitudinally exposing the tip of the greater trochanter. A guide pin was placed into the tip of the greater trochanter under fluoroscopic guidance and localized in appropriate position on AP and lateral views. The Synthes titanium trochanteric femoral nail with a 170 mm nail was chosen. The drill was then used after the guide pin was placed in appropriate position and then the 11-mm ,130-degree neck angle titanium cannulated trochanteric femoral nail, 170 mm in length was placed on the insertion device. This was a Synthes product. The nail was inserted under fluoroscopic guidance to the appropriate depth. The alignment guide was placed onto the insertion device and second incision was made for the helical blade and the insertion device was inserted into position and then the guidewire was placed on AP and lateral views to be centrally placed on the AP view and slightly posterior to central on the lateral view. The length of the spiral blade was chosen at 85 mm. Only the outer cortex was reamed due to the bone noted to be very soft while placing the guide pin. The 11 mm titanium helical blade 85 mm length was then advanced over the guidewire until fully seated. Then we tightened the compression screw proximally and then compressed the fracture site with the compression device. Then the genna was locked distally with a 5 mm x 36 mm locking screw. All the insertion devices were removed and final x-rays were obtained. All wounds irrigated with saline copiously. Then the deep fascia was closed with [id number] #1 Vicryl sutures. The deep layer fat was closed with large #2 Vicryl sutures to close the space and then superficial subcutaneous tissues closed with 2-0 Vicryl and skin closed with nate. Sterile dressings applied. The patient had about 25 mL of blood loss, tolerated the procedure well. I attest to the content of the Intraoperative Record and any orders documented therein. Any exceptions are noted below. ANGEL LUIS
[2017-07-21] VITALS (7 sets, daily range): BP systolic 93–124; BP diastolic 57–80; PULSE 80–122; TEMP 36.6–36.8; O2SAT 90–100
[2017-07-21] MEDS: CEFAZOLIN IV 1,000 MG in DEXTROSE 5% 50ML 50 ML IV SCH (03:24)
--- NOTE | 2017-07-21 05:57 | Progress Note ---
Progress Note Date of Service Jul 21, 2017. Progress Note late entry for visit to patient's room on 07/20/17 in early afternoon - S: pt c/o severe pain in her left hip and right shoulder she also reported she was "always bloated" in her abdomen confirmed h/o CHF but could not provide details O: VSS HRs <100 no fever gen - moderate distress due to pain mouth - MM slightly dry neck - no JVD heart - irregular, s1, s2 lungs - CTA b/l, modest rales bases abd - distended, BS+, NT, no HSM ext - left hip externally rotated and slightly shortened; no edema, pulses 2+ b/ l right shoulder - tender to palpation over subacromial bursa; no obvious deformity; she c/o severe pain with any passive ROM labs - mag 1.5 Cr 1.5 outside records reviewed - she DID have right shoulder x-rays - these did NOT show fracture or dislocation A/P: 1. left hip Fx 2. hypomagnesemia 3. hypokalemia 4. elevated creatinine, unsure of baseline or if CKD is present 5. abdominal bloating - x-rays obtained - no obvious ileus or SBO; could be due to constipaiton 6. right shoulder pain - traumatic bursitis? 7. echo with preserved EF and one area of wall motion abnormality - at this time she is optimized from a cardiac standpoint her cardiac risk is at least moderate based on age, echo findings, etc family updated at bedside care d/w orthopedic MICHELLE Fuentes MD
[2017-07-21] MEDS: LEVOTHYROXINE 50 MCG TAB PO SCH (06:14)
[2017-07-21 06:51] LABS: HEMATOCRIT 30.1 % (37-47); MEAN CELL VOLUME 93.8 fL (80-100); MEAN CORPUSCULAR HEMOGLOBIN 30.8 pg (25-34); MEAN CORPUSCULAR HGB CONC 32.9 g/dl (32-36); MEAN PLATELET VOLUME 10.2 fL (7.4-10.4); PLATELET COUNT 136 K/uL (130-400); RED BLOOD COUNT 3.21 M/uL (4.2-5.4); WHITE BLOOD COUNT 11.64 K/uL (4.8-10.8)
[2017-07-21 07:21] LABS: BUN/CREATININE RATIO 18.4 (10-20); CALCIUM 8.8 mg/dl (8.5-10.1); CREATININE 1.7 mg/dl (0.60-1.20); MAGNESIUM 2.3 mg/dl (1.8-2.4); POTASSIUM 3.8 mmol/L (3.5-5.1)
--- NOTE | 2017-07-21 07:42 | Clinical Documentation Query ---
CLINICAL DOCUMENTATION QUERY 82-y/o female who has undergone ORIF of left intertrochanteric fracture. H&P states history of CHF In your clinical opinion is this patient being managed for: (X ) (Suspected/Likely) Chronic Preserved EF/Diastolic CHF ( ) Not Agree ( ) Other explanation of clinical findings (Please Explain) ( ) Unable to determine (Please Define) ( ) Need to Discuss The medical record reflects the following clinical findings, treatment, and risk factors. Clinical Indicators: CHF per H&P. Echo showed preserved EF with one area of wall motion abnormality. Treatment: telemetry, I/O's, daily weights, Risk Factors: Age, HTN, HCTZ therapy, and Afib Please clarify and document your clinical opinion in the progress notes and discharge summary. Terms such as "probable", "suspected", "likely", "questionable", "possible", or "still to be ruled out" are acceptable. IF IN AGREEMENT, YOU MUST DOCUMENT ABOVE DIAGNOSTIC STATEMENT IN DAILY PROGRESS NOTES AND DISCHARGE SUMMARY. This document is not part of the patient's record. Thank You, Bakari Lamar, AMADO [phone]
--- NOTE | 2017-07-21 07:53 | Orthopedic Progress Note ---
Orthopedic Progress Note Date of Service Jul 21, 2017. Subjective Post OP Day: 1 Denies: chest pain, SOB, nausea / vomiting Additional Notes: Sitting up in bed eating breakfast. Having some hip pain this AM and right shoulder pain. States she was having shoulder pain prior to fall and this seems to have exacerbated the issue. Objective calves soft nontender, N/V intact, dressing C/D/I (left hip), A&O x3, toes mobile Right shoulder with tenderness on palpation over the biceps tendon/anterior shoulder. Mild pain in the biceps tendon area with elbow ROM. Shoulder with mild to moderate pain with gentle ROM. Date Time Temp Pulse Resp B/P (MAP) Pulse Ox O2 Delivery O2 Flow Rate FiO2 07/21/17 07:00 36.6 80 12 123/64 (83) 100 07/21/17 04:00 Nasal Cannula 2.0 07/21/17 03:40 36.7 98 18 124/80 (95) 100 Nasal Cannula 4.0 07/21/17 00:25 Nasal Cannula 2.0 07/20/17 22:01 6 113/66 (82) 100 07/20/17 22:00 15 100 07/20/17 21:50 17 108/54 (72) 100 07/20/17 21:46 17 54/42 (46) 100 07/20/17 21:45 21 99 07/20/17 21:30 10 100 07/20/17 21:16 12 106/51 (69) 100 07/20/17 21:15 12 100 07/20/17 21:01 7 113/74 (87) 100 07/20/17 21:00 9 98 07/20/17 20:46 13 100/53 (69) 100 07/20/17 20:45 18 100 07/20/17 20:31 14 113/74 (87) 100 07/20/17 20:30 2 100 07/20/17 20:16 9 84/64 (71) 100 07/20/17 20:15 9 100 07/20/17 20:10 16 97 07/20/17 20:05 8 97 07/20/17 20:00 15 101/69 (80) 100 07/20/17 20:00 Nasal Cannula 2.0 07/20/17 19:55 14 100 07/20/17 19:50 16 100 07/20/17 19:46 13 99/60 (73) 100 07/20/17 19:45 7 100 07/20/17 19:41 14 112/56 (74) 100 07/20/17 19:40 11 100 07/20/17 19:35 15 140/102 (115) 100 07/20/17 19:31 15 134/109 (117) 100 07/20/17 19:30 22 94 07/20/17 19:26 17 124/88 (100) 100 07/20/17 19:25 15 96 07/20/17 19:23 11 143/92 (109) 100 07/20/17 19:20 17 100 07/20/17 19:17 37.2 119/91 (100) 94 07/20/17 19:06 36.4 117/77 07/20/17 19:05 83 16 07/20/17 19:05 72 16 100 07/20/17 19:01 145/74 07/20/17 19:00 80 23 113/79 100 07/20/17 19:00 81 23 07/20/17 18:56 117/87 07/20/17 18:55 90 24 95 07/20/17 18:55 109 24 07/20/17 18:51 152/106 07/20/17 18:50 103 15 95 07/20/17 18:50 113 15 07/20/17 18:46 169/119 07/20/17 18:45 114 19 07/20/17 18:45 119 19 100 07/20/17 18:41 165/114 07/20/17 18:40 127 23 84 07/20/17 18:40 128 23 07/20/17 18:37 165/105 07/20/17 18:35 115 20 163/113 07/20/17 18:35 20 07/20/17 18:30 36.4 119 22 165/105 99 Oxymask 8 07/20/17 16:00 Nasal Cannula 2.0 07/20/17 15:03 37.4 88 20 93/70 (78) 98 Nasal Cannula 2.0 07/20/17 12:21 37.2 94 20 115/71 96 07/20/17 12:00 Nasal Cannula 2.0 100 07/20/17 12:00 37.2 94 20 122/75 (91) 96 Nasal Cannula 2.0 07/20/17 08:00 Nasal Cannula 2.0 100 07/20/17 08:00 37.1 88 20 115/78 98 Nasal Cannula 2.0 Laboratory Results 24 Hours: Test 07/21/17 06:19 Hematocrit 30.1 % Hemoglobin 9.9 g/dL Assessment & Plan Assessment: POD 1 Left TFN Right Shoulder pain Plan: Will obtain right shoulder films. I cannot find shoulder films on the CD that was sent from [facility]. Most likely biceps tendon injury with possible RTC injury. Family stated that the shoulder films were negative per physician at [facility]? PT / OT today. [facility] Inhouse Planning Pain Management: Morphine, Oxy IR DVT Prophylaxis: TEDs, SCDs, Coumadin
[2017-07-21] MEDS ORDERED: NSS + 20MEQ KCL 1000ML 1,000 ML IV SCH (08:00)
[2017-07-21] MEDS: ATORVASTATIN 20 MG TAB PO SCH (08:08)
[2017-07-21] MEDS: MAGNESIUM OXIDE 400 MG TAB PO SCH (08:08)
[2017-07-21] MEDS: AMIODARONE 200 MG TAB PO SCH (08:09)
[2017-07-21] MEDS: DOCUSATE SODIUM 100 MG CAP PO SCH (08:09)
[2017-07-21] MEDS: POLYETHYLENE (MIRALAX) 17 GM PACK PO SCH (08:13)
[2017-07-21] MEDS: MoRPHine SULFATE 2 MG/ML CARP IV PRN (08:59)
--- NOTE | 2017-07-21 09:37 | DIAGNOSTIC IMAGING REPORT ---
RIGHT SHOULDER 3 VIEWS HISTORY: Right shoulder pain. COMPARISON: None. FINDINGS: The bones are osteopenic. Mild deformity right humeral neck favors an old, healed fracture. There are few small ossific densities with in the glenohumeral joint consistent with intra-articular loose bodies. These may be due to old injury. The right clavicle is intact. Moderate glenohumeral joint osteoarthritis. Soft tissues are unremarkable. No radiopaque foreign bodies. IMPRESSION: 1. No definite acute fracture or dislocation within the right shoulder. 2. Old posttraumatic changes as described above. 3. Moderate glenohumeral joint osteoarthritis. Electronically signed by: Eloy Garcia M.D. 07/21/2017 9:36 AM Dictated Date/Time: 07/21/2017 9:33 AM
--- NOTE | 2017-07-21 10:56 | Anesthesiology Progress Note ---
Anesthesia Post Op Note Date & Time Jul 21, 2017 at 10:55 Vital Signs Pain Intensity: 5.0 Vital Signs Past 12 Hours Date Time Temp Pulse Resp B/P (MAP) Pulse Ox O2 Delivery O2 Flow Rate FiO2 07/21/17 08:00 Nasal Cannula 2.0 07/21/17 07:45 36.8 91 117/78 (91) 99 Nasal Cannula 2.0 07/21/17 07:00 36.6 80 12 123/64 (83) 100 07/21/17 04:00 Nasal Cannula 2.0 07/21/17 03:40 36.7 98 18 124/80 (95) 100 Nasal Cannula 4.0 07/21/17 00:25 Nasal Cannula 2.0 Notes Mental Status: alert / awake / arousable, participated in evaluation Pt Amnestic to Procedure: Yes Nausea / Vomiting: adequately controlled Pain: adequately controlled Airway Patency, RR, SpO2: stable & adequate BP & HR: stable & adequate Hydration State: stable & adequate Anesthetic Complications: no major complications apparent
[2017-07-21] MEDS ORDERED: ETHYL CHLORIDE AER SPR 100 ML CAN EXT ONE (11:00)
[2017-07-21] MEDS ORDERED: BUPIVACAINE 0.25% 30 ML VIAL INFIL ONE (11:00)
[2017-07-21] MEDS ORDERED: METHYLPREDNISOLONE ACETATE 80 MG/ML VIAL IA ONE (11:00)
--- NOTE | 2017-07-21 14:06 | Hospitalist Progress Note ---
Hospitalist Progress Note Date of Service Jul 21, 2017. (Juliana Ramesh ., PA-C) Subjective Pt evaluation today including: conversation w/ patient, conversation w/ family (son and granddaughter at bedside), physical exam, lab review, review of studies , review of inpatient medication list Voiding: hebert catheter in place (draining concentrated yellow urine ) Patient feeling well. Pain is well controlled. R shoulder pain is well controlled w/ available pain medications. Denies flatus/BMs. Eating and drinking OK. Working w/ PT without significant difficulty. Patient denies any fever, chills, sweats, lightheadedness, dizziness, vision changes, CP, palpitations, edema, SOB, wheezing, cough, abdominal pain, nausea, vomiting, diarrhea, urinary symptoms, melena, numbness/tingling, weakness, anxiety/depression, active bleeding, or new skin discoloration/changes. (Juliana Ramesh ., PA-C) Medications Current Inpatient Medications Medications (Trade) Dose Ordered Sig/Margarette Route Start Time Stop Time Status Last Admin Dose Admin Morphine Sulfate (MoRPHine SULFATE INJ) 2 mg Q2H PRN IV 07/20/17 03:45 08/03/17 03:44 07/21/17 08:59 2 MG Morphine Sulfate (MoRPHine SULFATE INJ) 4 mg Q2H PRN IV 07/20/17 03:45 08/03/17 03:44 Naloxone HCl (Narcan Inj) 0.1 mg PRN PRN IV 07/20/17 03:45 08/19/17 03:44 Polyethylene (Miralax Powder Packet) 17 gm DAILY PRN PO 07/20/17 03:45 08/19/17 03:44 Magnesium Hydroxide (Milk Of Magnesia Susp) 30 ml DAILY PRN PO 07/20/17 03:45 08/19/17 03:44 Bisacodyl (Dulcolax Supp) 10 mg DAILY PRN NE 07/20/17 03:45 08/19/17 03:44 Sodium Biphosphate/ Sodium Phosphate (Fleet Enema) 132 ml PRN PRN NE 07/20/17 03:45 Amiodarone HCl (Cordarone Tab) 200 mg DAILY PO 07/20/17 09:00 08/19/17 08:59 07/21/17 08:09 200 MG Atorvastatin Calcium (Lipitor Tab) 20 mg DAILY PO 07/20/17 09:00 08/19/17 08:59 07/21/17 08:08 20 MG Docusate Sodium (coLACE CAP) 100 mg DAILY PO 07/20/17 09:00 08/19/17 08:59 07/21/17 08:09 100 MG Levothyroxine Sodium (Synthroid Tab) 50 mcg DAILYBB PO 07/20/17 07:00 08/19/17 06:59 07/21/17 06:14 50 MCG Magnesium Oxide (Mag-Ox Tab) 400 mg DAILY PO 07/20/17 09:00 08/19/17 08:59 07/21/17 08:08 400 MG Sodium Chloride 1,000 ml @ 15 mls/hr Q24H IV 07/20/17 16:15 08/19/17 16:14 07/20/17 16:15 15 MLS/HR Ondansetron HCl (Zofran Inj) 4 mg Q6H PRN IV 07/20/17 17:30 08/19/17 17:29 Oxycodone HCl (Roxicodone Immediate Rel Tab) 5 mg Q4H PRN PO 07/20/17 17:30 08/03/17 17:29 Oxycodone HCl (Roxicodone Immediate Rel Tab) 10 mg Q4H PRN PO 07/20/17 17:30 08/03/17 17:29 07/21/17 10:58 10 MG Menthol (Nice Seven) 1 seven Q2H PRN PO 07/20/17 17:30 08/19/17 17:29 Senna/Docusate Sodium (Senokot S Tab) 2 tab HS PO 07/20/17 21:00 08/19/17 20:59 Potassium Chloride/Sodium Chloride 1,000 ml @ 100 mls/hr Q10H IV 07/21/17 08:00 07/21/17 17:59 07/21/17 08:08 100 MLS/HR Polyethylene (Miralax Powder Packet) 17 gm DAILY PO 07/21/17 09:00 08/20/17 08:59 07/21/17 08:13 17 GM (Juliana Ramesh, ANTHONY) Objective Vital Signs Date Time Temp Pulse Resp B/P (MAP) Pulse Ox O2 Delivery O2 Flow Rate FiO2 07/21/17 12:00 Nasal Cannula 2.0 07/21/17 11:49 36.6 91 20 116/64 (81) 98 Nasal Cannula 2.0 07/21/17 11:37 108 07/21/17 08:00 Nasal Cannula 2.0 07/21/17 07:45 36.8 91 117/78 (91) 99 Nasal Cannula 2.0 07/21/17 07:00 36.6 80 12 123/64 (83) 100 07/21/17 04:00 Nasal Cannula 2.0 07/21/17 03:40 36.7 98 18 124/80 (95) 100 Nasal Cannula 4.0 07/21/17 00:25 Nasal Cannula 2.0 07/20/17 22:01 6 113/66 (82) 100 07/20/17 22:00 15 100 07/20/17 21:50 17 108/54 (72) 100 07/20/17 21:46 17 54/42 (46) 100 07/20/17 21:45 21 99 07/20/17 21:30 10 100 07/20/17 21:16 12 106/51 (69) 100 07/20/17 21:15 12 100 07/20/17 21:01 7 113/74 (87) 100 07/20/17 21:00 9 98 07/20/17 20:46 13 100/53 (69) 100 07/20/17 20:45 18 100 07/20/17 20:31 14 113/74 (87) 100 07/20/17 20:30 2 100 07/20/17 20:16 9 84/64 (71) 100 07/20/17 20:15 9 100 07/20/17 20:10 16 97 07/20/17 20:05 8 97 07/20/17 20:00 15 101/69 (80) 100 07/20/17 20:00 Nasal Cannula 2.0 07/20/17 19:55 14 100 07/20/17 19:50 16 100 07/20/17 19:46 13 99/60 (73) 100 07/20/17 19:45 7 100 07/20/17 19:41 14 112/56 (74) 100 07/20/17 19:40 11 100 07/20/17 19:35 15 140/102 (115) 100 07/20/17 19:31 15 134/109 (117) 100 07/20/17 19:30 22 94 07/20/17 19:26 17 124/88 (100) 100 07/20/17 19:25 15 96 07/20/17 19:23 11 143/92 (109) 100 07/20/17 19:20 17 100 07/20/17 19:17 37.2 119/91 (100) 94 07/20/17 19:06 36.4 117/77 07/20/17 19:05 83 16 07/20/17 19:05 72 16 100 07/20/17 19:01 145/74 07/20/17 19:00 80 23 113/79 100 07/20/17 19:00 81 23 07/20/17 18:56 117/87 07/20/17 18:55 90 24 95 07/20/17 18:55 109 24 07/20/17 18:51 152/106 07/20/17 18:50 103 15 95 07/20/17 18:50 113 15 07/20/17 18:46 169/119 07/20/17 18:45 114 19 07/20/17 18:45 119 19 100 07/20/17 18:41 165/114 07/20/17 18:40 127 23 84 07/20/17 18:40 128 23 07/20/17 18:37 165/105 07/20/17 18:35 115 20 163/113 07/20/17 18:35 20 07/20/17 18:30 36.4 119 22 165/105 99 Oxymask 8 07/20/17 16:00 Nasal Cannula 2.0 07/20/17 15:03 37.4 88 20 93/70 (78) 98 Nasal Cannula 2.0 (Juliana Ramesh, PA-C) Physical Exam General Appearance: no apparent distress, + pertinent finding (2L O2 NC ) Eyes: normal inspection, PERRL ENT: hearing grossly normal Neck: supple Respiratory/Chest: no respiratory distress, no accessory muscle use, + crackles (mild crackles bilateral lung bases ) Cardiovascular: + irregularly irregular (rate controlled ) Abdomen: normal bowel sounds, non tender, + distended Extremities: no pedal edema, no calf tenderness Neurologic/Psychiatric: alert, normal mood/affect, oriented x 3 Skin: normal color, warm/dry, no rash (Juliana Ramesh ., PA-C) Laboratory Results Last 24 Hours Test 07/21/17 06:19 White Blood Count 11.64 K/uL Red Blood Count 3.21 M/uL Hemoglobin 9.9 g/dL Hematocrit 30.1 % Mean Corpuscular Volume 93.8 fL Mean Corpuscular Hemoglobin 30.8 pg Mean Corpuscular Hemoglobin Concent 32.9 g/dl RDW Standard Deviation 46.2 fL RDW Coefficient of Variation 13.5 % Platelet Count 136 K/uL Mean Platelet Volume 10.2 fL Sodium Level 137 mmol/L Potassium Level 3.8 mmol/L Chloride Level 104 mmol/L Carbon Dioxide Level 25 mmol/L Anion Gap 8.0 mmol/L Blood Urea Nitrogen 31 mg/dl Creatinine 1.70 mg/dl Est Creatinine Clear Calc Drug Dose 19.6 ml/min Estimated GFR () 31.5 Estimated GFR (Non- 27.2 BUN/Creatinine Ratio 18.4 Random Glucose 168 mg/dl Calcium Level 8.8 mg/dl Magnesium Level 2.3 mg/dl (Juliana Ramesh ., PA-C) Assessment and Plan 82 y/o F Hx AF, CHF, HTN, HPL, TIA, hypothyroid. Suffered a fall earlier in day sustaining a L intertrochanteric fracture. Pt was transferred from [facility] for treatment. The pt's HR was 150 on arrival to the ER. She responded to a small dose of IV Cardizem. L hip fracture s/p ORIF with trochanteric femoral nail fixation by Dr. Garica on 07/20: - Pain management, PT/OT as per orthopedics -- Pain medications: Oxycodone 5 mg or 10 mg q4 hrs PRN, IV Morphine 2 or 4 mg q2 hrs PRN - Bowel regimen: MiraLAX daily, Senokot HS, Colace daily, Milk of Mag PRN, Dulcolax suppository PRN, Fleet enema PRN - O2 protocol, wean as tolerated- does not wear O2 supplement at home. Encourage incentive spirometer R shoulder pain: - R shoulder x-ray: no acute findings, osteoarthritis - Pain management as above + Voltaren Gel QID - Ortho following HTN- STABLE: HCTZ and Lisinopril held due to procedure. Will continue to hold as BP is stable A.fib w/ RVR- rate currently controlled: - RVR treated w/ IV Cardizem - Amiodarone 200 mg daily - Coumadin held due to procedure- resume on 07/21, follow INR and adjust Coumadin PRN. Lovenox SQ daily on 07/21 until INR therapeutic Hypomagnesemia- RESOLVED: - Replaced w/ IV mag - Continue Mag-Ox supplement, follow mag level Hyperlipidemia: Continue Lipitor h/o TIA: - ASA held due to hip fracture/procedure- resume at discharge - Statin therapy as above CKD, stage III- unsure of baseline Cr, ranging from 1.5-1.7: - Continue to follow PRP - Nephrotoxic agents held as above - Will consider IV hydration if continues to trend up Hypothyroidism- TSH 1.930 on 07/20: Continue Synthroid DVT prophylaxis: Lovenox SQ/Coumadin Code Status: LEVEL I, FULL Dispo: From home, lives alone- planning for rehab at [facility]- socially responsible investment adviser and PT/OT consulted (Juliana Ramesh ., PA-C) Attending Attestation: Pt seen/examined, chart reviewed, and care plan d/w MICHELLE Ramesh. I agree w/ the maya components of her documentation. Left hip pain improved. Right shoulder pain still present. No bowel movement. Denies dyspnea. VSS no fever gen - nad neck - no JVD heart - irregular, s1, s2 lungs - CTA b/l abd - soft, NT, mildly distended ext - mild edema left thigh, pulses 2+ b/l skin - dressings intact left thigh labs - Cr 1.7 Hb 9.9 A/P: 1. left hip Fx, s/p ORIF - POD #1 2. DVT proph - lovenox SC while awaiting to become therapeutic 3. a. fib - rates controlled (mostly), coumadin 4. CKD stage 4 (likely) 5. FEN - 1 L of fluid today; repeat labs am 6. dispo - [facility] for rehab son updated at bedside Girma Fuentes MD (Girma Fuentes MD)
[2017-07-21] MEDS: WARFARIN SOD 2.5 MG TAB PO SCH (16:56)
[2017-07-21] MEDS: SODIUM CHLORIDE 0.9% 1000ML 1,000 ML IV SCH (16:56)
[2017-07-21] MEDS: ENOXAPARIN 30 MG/0.3 ML SYR SQ SCH (16:58)
[2017-07-21] MEDS: DICLOFENAC SOD 1% GEL 100 GM TUBE EXT SCH ×2 (16:58→20:25)
[2017-07-21] MEDS: LORAZEPAM 0.5 MG TAB PO SCH (20:24)
[2017-07-21] MEDS: DOCUSATE SODIUM/SENNA 50/8.6MG TAB PO SCH (20:25)
[2017-07-22] VITALS (8 sets, daily range): BP systolic 96–123; BP diastolic 60–83; PULSE 80–123; TEMP 36.6–37.1; O2SAT 95–100
[2017-07-22] MEDS: LEVOTHYROXINE 50 MCG TAB PO SCH (05:22)
[2017-07-22 06:06] LABS: PROTHROMBIN TIME (PATIENT) 10.6 SECONDS (9.0-12.0)
[2017-07-22 06:07] LABS: HEMATOCRIT 28.5 % (37-47); MEAN CELL VOLUME 92.8 fL (80-100); MEAN CORPUSCULAR HEMOGLOBIN 31.3 pg (25-34); MEAN CORPUSCULAR HGB CONC 33.7 g/dl (32-36); MEAN PLATELET VOLUME 10.2 fL (7.4-10.4); PLATELET COUNT 130 K/uL (130-400); RED BLOOD COUNT 3.07 M/uL (4.2-5.4); WHITE BLOOD COUNT 12.16 K/uL (4.8-10.8)
[2017-07-22 06:48] LABS: BUN/CREATININE RATIO 25.5 (10-20); CALCIUM 8.3 mg/dl (8.5-10.1); CREATININE 1.7 mg/dl (0.60-1.20); POTASSIUM 4.5 mmol/L (3.5-5.1)
[2017-07-22] MEDS: DICLOFENAC SOD 1% GEL 100 GM TUBE EXT SCH ×4 (08:59→21:20)
[2017-07-22] MEDS: MAGNESIUM OXIDE 400 MG TAB PO SCH (09:00)
[2017-07-22] MEDS: DOCUSATE SODIUM 100 MG CAP PO SCH (09:00)
[2017-07-22] MEDS: ATORVASTATIN 20 MG TAB PO SCH (09:00)
[2017-07-22] MEDS: POLYETHYLENE (MIRALAX) 17 GM PACK PO SCH (09:00)
[2017-07-22] MEDS: AMIODARONE 200 MG TAB PO SCH (09:00)
[2017-07-22] MEDS: ENOXAPARIN 30 MG/0.3 ML SYR SQ SCH (09:00)
[2017-07-22] MEDS: FERROUS SULFATE 325 MG TAB PO SCH ×2 (09:30→17:16)
[2017-07-22] MEDS: METOPROLOL TARTRATE 25 MG TAB PO SCH ×2 (09:30→21:18)
[2017-07-22] MEDS ORDERED: BUPIVACAINE 0.5 % 5 MG/1 ML MPF 30ML VIAL IA ONE (10:00)
[2017-07-22] MEDS ORDERED: METHYLPREDNISOLONE ACETATE 80 MG/ML VIAL IM ONE (10:00)
--- NOTE | 2017-07-22 11:07 | Orthopedic Progress Note ---
Orthopedic Progress Note Date of Service Jul 22, 2017. Subjective Post OP Day: 2 Reports: pain controlled w PO medications (States the left hip is painful, particularly with movement.), Denies: chest pain, SOB, calf pain Additional Notes: Right shoulder pain is controlled better with the topical tx ordered for her. Objective calves soft nontender, N/V intact, capillary refill less than 2 sec., dressing C /D/I, A&O x3, toes mobile Left hip is soft. Tender to palpation at the anterior hip/thigh. Right shoulder: painful PROM. Decreased PROM secondary to pain. Weakness in all directions with the right shoulder. Upper back, inferior to the shoulder, has a large ecchymotic area. No erythema noted. Posterior and anterior shoulder tenderness. Date Time Temp Pulse Resp B/P (MAP) Pulse Ox O2 Delivery O2 Flow Rate FiO2 07/22/17 08:06 37.0 123 20 122/83 (96) 100 Nasal Cannula 07/22/17 08:00 Nasal Cannula 2.0 07/22/17 04:08 37.1 106 16 123/70 (87) 100 Nasal Cannula 4.0 07/22/17 04:00 Nasal Cannula 2.0 07/22/17 00:27 37.0 98 18 96/60 (72) 100 Nasal Cannula 4.0 07/22/17 00:00 Nasal Cannula 2.0 07/21/17 20:00 Nasal Cannula 2.0 07/21/17 19:23 36.8 122 16 112/79 (90) 90 Room Air 07/21/17 16:00 Nasal Cannula 2.0 07/21/17 15:08 36.8 87 18 108/57 (74) 93 Nasal Cannula 4.0 07/21/17 12:00 Nasal Cannula 2.0 07/21/17 11:49 36.6 91 20 116/64 (81) 98 Nasal Cannula 2.0 07/21/17 11:37 108 Laboratory Results 24 Hours: Test 07/22/17 05:23 Hematocrit 28.5 % Hemoglobin 9.6 g/dL Prothromb Time International Ratio 1.0 Prothrombin Time 10.6 SECONDS Assessment & Plan Assessment: POD 2 Left TFN Right Shoulder osteoarthritis Plan: PT / OT today. TTWB LLE Under sterile technique, the right shoulder joint was injected with 1 cc of 80 mg/mL Depo Medrol and 5 cc of 0.25% Marcaine plain. The patient tolerated the injection well. She will be followed through her post operative care for her left hip. She will be seen in follow up for the right shoulder by Dr. Garcia's team during hip follow ups. D/C planning--per medicine team. Inhouse Planning Pain Management: Morphine, Oxy IR DVT Prophylaxis: TEDs, SCDs, Coumadin
--- NOTE | 2017-07-22 11:12 | Consultant Recommendations ---
Leather Belt Loop Cutter Recommendations Date of Service Jul 22, 2017. Leather Belt Loop Cutter Recommendations [facility] DISCHARGE INSTRUCTIONS: HIP FRACTURE SELF CARE INSTRUCTIONS: A. You are to ambulate with a walker or crutches for approximately 6 weeks. B. You are TOE TOUCH WEIGHT BEARING on your operative lower extremity for at least 6 weeks. C. Wear low heeled shoes with non-slip soles D. Be sure that your floors are free of things that could trip you throw rugs, electrical cords, and small objects. Avoid wet and waxed floors, especially with crutches/walker/cane. E. Try to walk several times a day with rest periods between. F. You may shower 48 hours after surgery and get the incision area wet, but DO NOT soak or submerge incision area in water. (No baths, swimming pools, hot tubs ) G. You may have a large, band-aid like dressing over your incision (Aquacel). This will remain on your incision for 7 days, and then can be removed. You CAN shower with this on. If incision is leaking through the dressing, please call the office . H. Do NOT apply soap or any ointment/lotions directly over incision. I. You may use ice as needed to operative site. SPECIAL CARE INSTRUCTIONS: VERY IMPORTANT TO READ AND REVIEW A. You may be at risk for phlebitis or blood clots. a. Wear surgical stockings (ROGERIO hose) for 2 weeks after surgery to improve circulation and reduce swelling. b. Take LOVENOX 30mg SQ QD as directed. This is your blood thinner. This may be stopped prior to your hospital discharge if your Coumadin levels are therapeutic. c. If you are on Coumadin- you will have daily/weekly blood work to monitor your levels. This will be done by either your family physician/ mentally impaired teacher (if you are on Coumadin chronically) versus your orthopedic surgeon. Expect a phone call the day of or the day after your blood work is drawn to adjust your dose accordingly. B. There are a few signs you need to watch for after you are home. Call [facility] at [phone] if you experience any of the following: a. If you have a temperature of 101 degrees or higher. b. Sudden increase in pain in your hip not relieved by rest or pain medication. c. Any fluid or drainage from the incision; redness of the incision. d. Shortness of breath or chest pain. B. Please call [facility] at [phone] if you have any questions or concerns about your operation or recovery. C. Call your physician if: a. Temperature is greater than 101 degrees (F). b. Pain is not relieved by prescribed pain medications. c. Increase drainage or redness from incision. d. Unanswered questions or concerns. D. Pain Medication: a. You will be prescribed pain medication upon discharge that should last till your first post-operative appointment. b. If you experience nausea and/or skin rash, discontinue this medication and contact our office for an alternative medication. c. Caution- narcotic pain medication can cause constipation. FOLLOW UP VISIT: Please call [facility] at [phone] to schedule a follow up appointment 10-14 days from the date of your surgery date.
[2017-07-22] MEDS ORDERED: BISACODYL 10 MG SUPP PR ONE (14:30)
[2017-07-22] MEDS ORDERED: SODIUM CHLORIDE 0.9% 1000ML 1,000 ML IV SCH (16:15)
[2017-07-22] MEDS: SODIUM CHLORIDE 0.9% 1000ML 1,000 ML IV SCH (16:15)
[2017-07-22] MEDS: WARFARIN SOD 2.5 MG TAB PO SCH (16:23)
--- NOTE | 2017-07-22 20:51 | Progress Note ---
Subjective Date of Service: Jul 22, 2017. Subjective Pt evaluation today including: conversation w/ patient, conversation w/ family (at bedside), physical exam, chart review, lab review, conversation w/ educational consultant (orthopedics), review of inpatient medication list Pain: right shoulder, left hip - right shoulder is worse PO Intake: poor Voiding: hebert catheter in place patient tired today but, did sit in chair for several hours this am no bowel movement yet since admission but has significant constipation at home little appetite a. fib on monitor improved following metoprolol received injection into right shoulder for bursitis Problem List Medical Problems: (1) Atrial fibrillation with rapid ventricular response Status: Acute (2) Fall Status: Acute (3) Intertrochanteric fracture of left hip Status: Acute Review of Systems Constitutional: No fever Respiratory: No cough, No shortness of breath Cardiac: No chest pain Abdomen: + constipation, No pain Objective Vital Signs Date Time Temp Pulse Resp B/P (MAP) Pulse Ox O2 Delivery O2 Flow Rate FiO2 07/22/17 18:35 36.6 89 18 102/65 (77) 95 Nasal Cannula 2.0 07/22/17 16:00 Nasal Cannula 2.0 07/22/17 14:51 36.9 83 17 116/73 (87) 99 Nasal Cannula 2.0 07/22/17 12:15 37.1 97 16 109/67 (81) 99 Nasal Cannula 07/22/17 12:00 Nasal Cannula 2.0 07/22/17 08:06 37.0 123 20 122/83 (96) 100 Nasal Cannula 07/22/17 08:00 Nasal Cannula 2.0 07/22/17 04:08 37.1 106 16 123/70 (87) 100 Nasal Cannula 4.0 07/22/17 04:00 Nasal Cannula 2.0 07/22/17 00:27 37.0 98 18 96/60 (72) 100 Nasal Cannula 4.0 07/22/17 00:00 Nasal Cannula 2.0 Physical Exam General Appearance: no apparent distress, + pertinent finding (looks tired and dehydrated) ENT: + pertinent finding (MM dry) Neck: no JVD Respiratory/Chest: lungs clear, no respiratory distress, no accessory muscle use Cardiovascular: no gallop, no murmur, + irregularly irregular Abdomen: normal bowel sounds, non tender, soft, no organomegaly Extremities: no pedal edema, + swelling (left thigh only) Neurologic/Psychiatric: alert, oriented x 3 Skin: + pertinent finding (dressings intact to left thigh ) Laboratory Results Last 24 Hours Test 07/22/17 05:23 07/22/17 11:21 White Blood Count 12.16 K/uL Red Blood Count 3.07 M/uL Hemoglobin 9.6 g/dL Hematocrit 28.5 % Mean Corpuscular Volume 92.8 fL Mean Corpuscular Hemoglobin 31.3 pg Mean Corpuscular Hemoglobin Concent 33.7 g/dl RDW Standard Deviation 45.8 fL RDW Coefficient of Variation 13.6 % Platelet Count 130 K/uL Mean Platelet Volume 10.2 fL Prothrombin Time 10.6 SECONDS Prothromb Time International Ratio 1.0 Sodium Level 139 mmol/L Potassium Level 4.5 mmol/L Chloride Level 106 mmol/L Carbon Dioxide Level 26 mmol/L Anion Gap 7.0 mmol/L Blood Urea Nitrogen 43 mg/dl Creatinine 1.70 mg/dl Est Creatinine Clear Calc Drug Dose 19.6 ml/min Estimated GFR () 31.5 Estimated GFR (Non- 27.2 BUN/Creatinine Ratio 25.5 Random Glucose 138 mg/dl Calcium Level 8.3 mg/dl Bedside Glucose 147 mg/dl Assessment and Plan 82yo female - 1. left hip Fx, s/p ORIF - POD #2; for pain control try to transition to PO norco prn. 2. DVT proph - lovenox SC while awaiting coumadin to become therapeutic. Daily INR. 3. a. fib - rates now controlled with metoprolol 25 BID. On chronic amiodarone 200mg daily but clearly has not kept her in NSR. Cont coumadin. 4. CKD stage 4 (likely) - Cr 1.7 today ;repeat BMP am. 5. FEN - continues to have poor oral intake and she appears volume depleted on exam. NS 50cc/hr x 1 liter then reassess in AM. 6. acute blood loss anemia - start ferrous sulfate 325mg BID. 7. constipation, cannot r/o ileus - dulcolax suppos x 1. Senna + miralax daily for bowel maintenance. 8. hypothyroidism - synthroid. 9. anorexia - could be 2nd to pain, constipation, developing ileus, etc. Follow for now. Treat #7. 10. mild hypoxia - suspect 2nd to atelectasis - ambulate, incentive spirometry. 11. chronic diastolic CHF - compensated. Will need beta blanca at discharge ( toprol xl). 12. right shoulder pain, 2nd to bursitis vs DJD; DJD favored - received intra- articular joint injection today by orthopedics. Voltaren gel QID in meantime. dispo - [facility] in [place] Doubt tomorrow due to multiple active issues Continued [facility] stay due to: inadequate po fluid intake, inadequate oral pain control, voiding difficulties, ambulation difficulties, multiple IV medications needed, home environment unsafe for pt Discharge planning: jail facility
[2017-07-22] MEDS: LORAZEPAM 0.5 MG TAB PO SCH (21:18)
[2017-07-22] MEDS: DOCUSATE SODIUM/SENNA 50/8.6MG TAB PO SCH (21:18)
[2017-07-23] VITALS (14 sets, daily range): BP systolic 82–126; BP diastolic 29–68; PULSE 67–81; TEMP 36.4–37.3; O2SAT 90–100
[2017-07-23] MEDS: SODIUM CHLORIDE 0.9% 1000ML 1,000 ML IV SCH (04:33)
[2017-07-23] MEDS: LEVOTHYROXINE 50 MCG TAB PO SCH (04:35)
[2017-07-23 05:48] LABS: HEMATOCRIT 24.1 % (37-47); MEAN CELL VOLUME 93.4 fL (80-100); MEAN CORPUSCULAR HEMOGLOBIN 30.2 pg (25-34); MEAN CORPUSCULAR HGB CONC 32.4 g/dl (32-36); MEAN PLATELET VOLUME 10.3 fL (7.4-10.4); PLATELET COUNT 136 K/uL (130-400); RED BLOOD COUNT 2.58 M/uL (4.2-5.4); WHITE BLOOD COUNT 9.21 K/uL (4.8-10.8)
[2017-07-23 05:58] LABS: PROTHROMBIN TIME (PATIENT) 10.8 SECONDS (9.0-12.0)
[2017-07-23 06:13] LABS: BUN/CREATININE RATIO 31.5 (10-20); CALCIUM 8.4 mg/dl (8.5-10.1); CREATININE 1.7 mg/dl (0.60-1.20); POTASSIUM 4.5 mmol/L (3.5-5.1)
[2017-07-23] MEDS: ENOXAPARIN 30 MG/0.3 ML SYR SQ SCH (08:36)
[2017-07-23] MEDS: DICLOFENAC SOD 1% GEL 100 GM TUBE EXT SCH ×4 (08:36→21:26)
[2017-07-23] MEDS: SENNA 8.6 MG TAB PO SCH (08:37)
[2017-07-23] MEDS: ATORVASTATIN 20 MG TAB PO SCH (08:38)
[2017-07-23] MEDS: MAGNESIUM OXIDE 400 MG TAB PO SCH (08:38)
[2017-07-23] MEDS: AMIODARONE 200 MG TAB PO SCH (08:38)
[2017-07-23] MEDS: POLYETHYLENE (MIRALAX) 17 GM PACK PO SCH (08:38)
[2017-07-23] MEDS: FERROUS SULFATE 325 MG TAB PO SCH ×2 (08:38→16:48)
[2017-07-23] MEDS: METOPROLOL TARTRATE 25 MG TAB PO SCH ×2 (08:38→21:26)
--- NOTE | 2017-07-23 10:54 | Orthopedic Progress Note ---
Orthopedic Progress Note Date of Service Jul 23, 2017. Subjective Post OP Day: 3 Reports: feeling well, Denies: complaints Additional Notes: Patient seen at bedside sitting in chair. States her pain is improving in left hip however still present during activity. Her right shoulder pain has improved since receiving the steroid injections yesterday 07/22/17. No acute issues overnight. Objective LLE NVSI +EHL/FHL/TA/GS SILT grossly, CR< 2 seconds, +2 DP pulse Compartments soft, NT, , incision CDI RUE NVSI +M/R/U/AIN/PIN, SILT grossly, +2 Radial pulse, limited ROM Date Time Temp Pulse Resp B/P (MAP) Pulse Ox O2 Delivery O2 Flow Rate FiO2 07/23/17 09:33 116/58 (77) 07/23/17 08:16 36.4 67 18 107/29 (55) 99 Nasal Cannula 07/23/17 08:04 Nasal Cannula 2.0 07/23/17 04:00 99 Nasal Cannula 2.0 07/23/17 04:00 36.5 71 20 111/68 (82) 99 Nasal Cannula 3.0 07/23/17 00:00 94 Nasal Cannula 2.0 07/23/17 00:00 37.3 81 23 100/56 (71) 94 Nasal Cannula 2.0 07/22/17 21:13 80 103/68 (80) 07/22/17 20:00 95 Nasal Cannula 2.0 07/22/17 18:35 36.6 89 18 102/65 (77) 95 Nasal Cannula 2.0 07/22/17 16:00 Nasal Cannula 2.0 07/22/17 14:51 36.9 83 17 116/73 (87) 99 Nasal Cannula 2.0 07/22/17 12:15 37.1 97 16 109/67 (81) 99 Nasal Cannula 07/22/17 12:00 Nasal Cannula 2.0 Laboratory Results 24 Hours: Test 07/23/17 05:12 07/23/17 09:23 Hematocrit 24.1 % Hemoglobin 7.8 g/dL 9.2 g/dL Prothromb Time International Ratio 1.0 Prothrombin Time 10.8 SECONDS Assessment & Plan Assessment: POD 3 Left TFN Right shoulder steroid inj 07/22/17 Right Shoulder osteoarthritis Plan: PT / OT today. TTWB LLE Dressing changed DVT PPX lovenox --> Coumadin bridge She will be seen in follow up for the right shoulder by Dr. Garcia's team during hip follow ups. D/C planning--per medicine team. At this time, the patient is doing well orthopedically, we will sign off and follow up outpatient. Please call with questions. DC recs are listed in documents. Inhouse Planning Pain Management: Morphine, Oxy IR DVT Prophylaxis: TEDs, SCDs, Coumadin
[2017-07-23 11:10] LABS: URINE APPEARANCE TURBID (CLEAR); URINE BILIRUBIN NEG (NEG); URINE COLOR DK YELLOW; URINE EPITHELIAL CELL AUTO 0-5 /lpf (0-5); URINE NITRITE NEG (NEG); URINE SPECIFIC GRAVITY 1.023 (1.000-1.030); UROBILINOGEN NEG (NEG)
[2017-07-23 11:18] LABS: MANUAL MICROSCOPIC REQUIRED? NO; REVIEW REQ? NO
[2017-07-23] MEDS ORDERED: SODIUM CHLORIDE 0.9% 1000ML 250 ML IV SCH (16:00)
[2017-07-23] MEDS: INSULIN ASPART 100 UNITS/ML 3 ML PEN SC SCH ×2 (16:15→21:00)
[2017-07-23] MEDS: WARFARIN SOD 2.5 MG TAB PO SCH (16:47)
--- NOTE | 2017-07-23 18:36 | PROGRESS NOTE ---
DATE: 07/23/2017 HISTORY OF PRESENT ILLNESS: Mrs. Traore is a very pleasant 82-year-old white female, who was transferred here from [facility] for an acute hip fracture. She was noted to be in atrial fibrillation with RVR upon admission. She is currently postoperative day #3 from a left hip ORIF using an intramedullary trochanteric nail. The patient remains in atrial fibrillation, but her heart rate is well-controlled at this point. She is anemic following her recent hip fracture and surgical repair and may benefit from a transfusion if hemoglobin remains slow. She offers no complaints today. Her shoulder and hip are still sore, but it is a tolerable amount of pain. She denies any chest pain, heaviness, tightness, pressure or discomfort. She denies any shortness of breath, dyspnea on exertion, orthopnea or PND. She denies any palpitations, tachy-palpitations, syncope or near syncope. The patient did have a bowel movement today and is quite thrilled about that. PHYSICAL EXAMINATION: VITAL SIGNS: Temperature is 36.5 degree Celsius, pulse 72 and regular, respiratory rate is 14 and unlabored, blood pressure is 90/52 and SPO2 is 92% on room air. HEENT: Head is atraumatic and normocephalic. EOMs intact. Sclerae are anicteric. Face is symmetric. NECK: Without JVD. CHEST AND LUNGS: Clear to auscultation throughout all lung lombardo, no wheezes, rales or rhonchi. CARDIOVASCULAR: S1 and S2 are irregularly irregular at a rate of approximately 80-90 beats per minute. PMI is nondisplaced. No lifts, heaves or thrills. ABDOMINAL EXAM: Bowel sounds present. EXTREMITIES: Without clubbing, cyanosis or edema. The right shoulder is ecchymotic and tender to palpation. The left hip is dressed. LABORATORIES: Hemoglobin 7.8 grams per deciliter; was up to 9.2 grams per deciliter on recheck. Sodium 136 mmol/L, potassium 4.5 mmol/L. BUN is 54 mg/dL. Creatinine 1.70 mg/dL. Random glucose 149 mg/dL. Total CK is elevated at 687. ASSESSMENT: 1. Left hip fracture status post open reduction and internal fixation, now postoperative day #3. 2. Acute blood loss anemia. 3. Atrial fibrillation, now with controlled ventricular response. 4. History of diastolic congestive heart failure. 5. Anorexia. 6. Constipation, resolved. PLAN: 1. The patient is doing reasonably well. 2. Continue to monitor daily H&H, PRP. 3. Type and crossmatch 2 units of packed red blood cells. Hold for now. If hemoglobin drops below 8, would recommend transfusing at least 1 unit of packed red blood cells. 4. Continue Amiodarone 200 mg a day. 5. Continue Lopressor 25 mg b.i.d. 6. Continue long-term Lipitor 20 mg daily. 7. Continue Coumadin for a goal INR of 2.0-3.0. 8. Continue Lovenox until INR is therapeutic. 9. Continue magnesium oxide. 10. Continue Synthroid. 11. Continue to cover blood sugars with sliding scale insulin. 12. Physical therapy/occupational therapy. 13. She will continue to be followed closely. Attending Attestation: Pt seen/examined, chart reviewed, care plan d/w MICHELLE Mendoza. I agree w/ the maya components of his documentation. Please see my separate note dated 07/24/17, time 0858, for more information. Girma Fuentes MD [facility]
[2017-07-23] MEDS: LORAZEPAM 0.5 MG TAB PO SCH (21:25)
[2017-07-23] MEDS: DOCUSATE SODIUM/SENNA 50/8.6MG TAB PO SCH (21:26)
[2017-07-23] MEDS: HYDROCODONE/ACETAMOPHEN 5/325MG TAB PO PRN (21:28)
[2017-07-24] VITALS (9 sets, daily range): BP systolic 100–140; BP diastolic 56–92; PULSE 63–86; TEMP 36.4–36.9; O2SAT 92–100
[2017-07-24] MEDS: HYDROCODONE/ACETAMOPHEN 5/325MG TAB PO PRN ×2 (03:54→18:35)
[2017-07-24 06:08] LABS: ESTIMATED AVERAGE GLUCOSE 134 mg/dl; HA1C FLAG Normal (Normal)
[2017-07-24] MEDS: LEVOTHYROXINE 50 MCG TAB PO SCH (06:21)
[2017-07-24 07:31] LABS: HEMATOCRIT 30.3 % (37-47); MEAN CELL VOLUME 93.2 fL (80-100); MEAN CORPUSCULAR HEMOGLOBIN 30.5 pg (25-34); MEAN CORPUSCULAR HGB CONC 32.7 g/dl (32-36); MEAN PLATELET VOLUME 10.3 fL (7.4-10.4); PLATELET COUNT 135 K/uL (130-400); RED BLOOD COUNT 3.25 M/uL (4.2-5.4); WHITE BLOOD COUNT 9.36 K/uL (4.8-10.8)
[2017-07-24 07:39] LABS: INR 1.1 (0.9-1.1); PROTHROMBIN TIME (PATIENT) 11.5 SECONDS (9.0-12.0)
[2017-07-24] MEDS: INSULIN ASPART 100 UNITS/ML 3 ML PEN SC SCH (07:48)
[2017-07-24] MEDS: FERROUS SULFATE 325 MG TAB PO SCH ×2 (07:55→18:07)
[2017-07-24] MEDS: DICLOFENAC SOD 1% GEL 100 GM TUBE EXT SCH ×4 (07:56→20:53)
[2017-07-24] MEDS: METOPROLOL TARTRATE 25 MG TAB PO SCH ×2 (07:57→20:52)
[2017-07-24] MEDS: MAGNESIUM OXIDE 400 MG TAB PO SCH (07:57)
[2017-07-24] MEDS: AMIODARONE 200 MG TAB PO SCH (07:58)
[2017-07-24] MEDS: SENNA 8.6 MG TAB PO SCH (07:58)
[2017-07-24] MEDS: ATORVASTATIN 20 MG TAB PO SCH (07:58)
[2017-07-24] MEDS: ENOXAPARIN 30 MG/0.3 ML SYR SQ SCH (08:00)
[2017-07-24] MEDS: POLYETHYLENE (MIRALAX) 17 GM PACK PO SCH (08:00)
[2017-07-24 08:05] LABS: BUN/CREATININE RATIO 37.9 (10-20); CALCIUM 8.5 mg/dl (8.5-10.1); CREATININE 1.7 mg/dl (0.60-1.20); POTASSIUM 4.3 mmol/L (3.5-5.1)
--- NOTE | 2017-07-24 08:58 | Progress Note ---
Progress Note Date of Service Jul 24, 2017. Progress Note time: 0855 late entry for Attending Attestation to MICHELLE Mendoza's progress note dated 07/23 S: pt with minimal left hip pain; worst pain actually is right shoulder - she received intra-articular joint injection yesterday by orthopedics BPs low or low-normal all day today Hb 8.6 -- decision made to give 1 unit PRBC eating better had bowel movement O: BPs low or low-normal HR, temp, RR normal gen - looks better today, NAD, talkative neck - no JVD mouth - MM very dry heart - irregular, s1 s2 lungs - CTA b/l abd - soft, NT, BS+, minimally distended ext - no edema skin - left hip dressing in place with mild edema of thigh labs - Cr 1.7 Hb 8.6 glucoses and fingerstick blood sugars all >125 A/P: 1. acute blood loss anemia - Tx 1 unit PRBCs today; cbc in am. 2. probable CKD stage 4 - unknown baseline creatinine. Continue judicious fluids and supportive care. 3. dehydration - encouraged good PO intake. 4. left hip Fx s/p ORIF. 5. 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 s/p injection by ortho voltaren gel qid 6. hyperglycemia - change diet to T2DM; hemoglobin a1c to r/o new T2DM. 7. DVT proph - lovenox renal dose; coumadin daughter updated by phone progressing Girma Fuentes MD
--- NOTE | 2017-07-24 13:18 | Progress Note ---
Subjective Date of Service: Jul 24, 2017. (Laura Mcdonnell ., MAGALIC) Subjective Pt evaluation today including: conversation w/ patient, conversation w/ family , physical exam, chart review, lab review, review of studies, review of inpatient medication list Patient is feeling well today. She states that she continues to have pain with movement, but otherwise her pain is relatively well controlled. She did move her bowels twice today. Her Bob catheter was removed this morning, but she has not urinated on her own yet. Her appetite is diminshed but she has been eating part of her meals. Her Hgb is improved today, and she did receive 1 unit of PRBC's yesterday evening. Labs reviewed: Hgb was 7.8 yesterday morning, then post transfusion increased to 9.2. Was 9.9 this morning WBC 9.36 Creatinine 1.70- stable BUN 64 Electrolytes stable Urine cx finalized with no growth. Ortho signed off and will follow up as outpatient. (Laura Mcdonnell ., MICHELLE-C) Problem List Medical Problems: (1) Atrial fibrillation with rapid ventricular response Status: Acute (2) Fall Status: Acute (3) Intertrochanteric fracture of left hip Status: Acute (Laura Mcdonnell ., MICHELLE-C) Review of Systems Constitutional: + chills, No fever, No sweats Eyes: No worsening of vision ENT: No hearing loss Respiratory: No cough, No sputum, No wheezing, No shortness of breath Cardiac: No chest pain Abdomen: No pain, No nausea, No diarrhea Musculoskeletal: + joint pain (left hip and leg) Female : + problem reported (Bob removed), No dysuria Endo: No fatigue Skin: No rash, No itch, No new/changing skin lesions, No color change All Other Systems: Reviewed and Negative (Laura Mcdonnell ., PA-C) Medications Current Inpatient Medications Medications (Trade) Dose Ordered Sig/Margarette Route Start Time Stop Time Status Last Admin Dose Admin Naloxone HCl (Narcan Inj) 0.1 mg PRN PRN IV 07/20/17 03:45 08/19/17 03:44 Polyethylene (Miralax Powder Packet) 17 gm DAILY PRN PO 07/20/17 03:45 08/19/17 03:44 Magnesium Hydroxide (Milk Of Magnesia Susp) 30 ml DAILY PRN PO 07/20/17 03:45 08/19/17 03:44 Bisacodyl (Dulcolax Supp) 10 mg DAILY PRN VT 07/20/17 03:45 08/19/17 03:44 Sodium Biphosphate/ Sodium Phosphate (Fleet Enema) 132 ml PRN PRN VT 07/20/17 03:45 Amiodarone HCl (Cordarone Tab) 200 mg DAILY PO 07/20/17 09:00 08/19/17 08:59 07/24/17 07:58 200 MG Atorvastatin Calcium (Lipitor Tab) 20 mg DAILY PO 07/20/17 09:00 08/19/17 08:59 07/24/17 07:58 20 MG Levothyroxine Sodium (Synthroid Tab) 50 mcg DAILYBB PO 07/20/17 07:00 08/19/17 06:59 07/24/17 06:21 50 MCG Magnesium Oxide (Mag-Ox Tab) 400 mg DAILY PO 07/20/17 09:00 08/19/17 08:59 07/24/17 07:57 400 MG Ondansetron HCl (Zofran Inj) 4 mg Q6H PRN IV 07/20/17 17:30 08/19/17 17:29 Menthol (Nice Seven) 1 seven Q2H PRN PO 07/20/17 17:30 08/19/17 17:29 Senna/Docusate Sodium (Senokot S Tab) 2 tab HS PO 07/20/17 21:00 08/19/17 20:59 07/23/17 21:26 2 TAB Polyethylene (Miralax Powder Packet) 17 gm DAILY PO 07/21/17 09:00 08/20/17 08:59 07/24/17 08:00 17 GM Enoxaparin Sodium (Lovenox Inj) 30 mg QAM SQ 07/21/17 16:00 08/20/17 15:59 07/24/17 08:00 30 MG Warfarin Sodium (Coumadin Tab) 2.5 mg DAILY@16 PO 07/21/17 16:00 08/20/17 15:59 07/23/17 16:47 2.5 MG Diclofenac Sodium (Voltaren 1% Top Gel) 1 appln QID EXT 07/21/17 17:00 08/20/17 16:59 07/24/17 07:56 1 APPLN Lorazepam (Ativan Tab) 0.5 mg HS PO 07/21/17 21:00 08/20/17 20:59 07/23/17 21:25 0.5 MG Ferrous Sulfate (Feosol Tab) 325 mg BIDM PO 07/22/17 08:15 08/21/17 08:14 07/24/17 07:55 325 MG Acetaminophen/ Hydrocodone Bitart ([place] 5/325 Tab) 1 tab Q6H PRN PO 07/22/17 14:00 08/05/17 13:59 07/24/17 03:54 1 TAB Senna (Senokot Tab) 17.2 mg QAM PO 07/23/17 09:00 08/22/17 08:59 07/24/17 07:58 17.2 MG Metoprolol Tartrate (Lopressor Tab) 12.5 mg BID PO 07/23/17 21:00 08/21/17 08:59 07/24/17 07:57 12.5 MG (Laura Mcdonnell ., PA-C) Objective Vital Signs Date Time Temp Pulse Resp B/P (MAP) Pulse Ox O2 Delivery O2 Flow Rate FiO2 07/24/17 12:04 36.7 79 18 140/92 (108) 92 Room Air 07/24/17 12:00 Room Air 07/24/17 08:00 Room Air 100 07/24/17 07:34 36.6 69 16 100/56 (71) 95 Room Air 07/24/17 06:18 99 Nasal Cannula 1.0 07/24/17 03:49 Nasal Cannula 2.0 07/24/17 03:46 36.4 63 14 124/64 (84) 100 Room Air 2.0 07/24/17 00:00 36.6 69 16 130/70 (90) 100 Nasal Cannula 2.0 07/23/17 23:30 Nasal Cannula 2.0 07/23/17 21:17 67 126/67 (86) 07/23/17 21:00 Nasal Cannula 07/23/17 19:18 36.8 72 18 101/56 (71) 99 Nasal Cannula 2.0 07/23/17 19:07 36.8 75 18 101/56 100 07/23/17 18:07 37.0 77 18 96/60 90 07/23/17 17:37 36.9 81 20 83/59 95 07/23/17 17:22 37.0 71 16 82/51 (61) 95 Room Air 07/23/17 16:00 92 Room Air 07/23/17 15:46 36.5 72 16 90/52 (65) 92 Room Air (Laura Mcdonnell ., PA-C) Physical Exam General Appearance: WD/WN, no apparent distress Eyes: normal inspection, sclerae normal ENT: hearing grossly normal Neck: supple, trachea midline Respiratory/Chest: chest non-tender, lungs clear, no respiratory distress, no accessory muscle use, + decreased breath sounds (throughout) Cardiovascular: + irregularly irregular Abdomen: normal bowel sounds, non tender, soft Extremities: + pertinent finding (left hip with healing incisions- no notable erythema or drainage) Neurologic/Psychiatric: alert, normal mood/affect Skin: normal color, warm/dry, no rash (Laura Mcdonnell ., PA-C) Laboratory Results Last 24 Hours Test 07/23/17 15:25 07/23/17 16:20 07/23/17 20:12 07/24/17 06:30 Hemoglobin 8.6 g/dL Estimated Average Glucose 134 mg/dl Hemoglobin A1c 6.3 % Total Creatine Kinase 687 U/L Bedside Glucose 149 mg/dl 144 mg/dl 108 mg/dl Test 07/24/17 07:13 07/24/17 11:17 07/24/17 11:49 White Blood Count 9.36 K/uL Red Blood Count 3.25 M/uL Hemoglobin 9.9 g/dL Hematocrit 30.3 % Mean Corpuscular Volume 93.2 fL Mean Corpuscular Hemoglobin 30.5 pg Mean Corpuscular Hemoglobin Concent 32.7 g/dl RDW Standard Deviation 47.0 fL RDW Coefficient of Variation 13.8 % Platelet Count 135 K/uL Mean Platelet Volume 10.3 fL Prothrombin Time 11.5 SECONDS Prothromb Time International Ratio 1.1 Sodium Level 138 mmol/L Potassium Level 4.3 mmol/L Chloride Level 107 mmol/L Carbon Dioxide Level 26 mmol/L Anion Gap 5.0 mmol/L Blood Urea Nitrogen 64 mg/dl Creatinine 1.70 mg/dl Est Creatinine Clear Calc Drug Dose 20.1 ml/min Estimated GFR () 31.5 Estimated GFR (Non- 27.2 BUN/Creatinine Ratio 37.9 Random Glucose 105 mg/dl Calcium Level 8.5 mg/dl Bedside Glucose 126 mg/dl (Laura Mcdonnell ., PA-C) Assessment and Plan 1. Left hip fx s/p ORIF, POD#4 -Patient doing well -Pain well controlled, though stiff with movement -Ortho signed off and will follow as outpatient 2. Acute blood loss anemia -1 unit PRBC's transfused last night- Hgb this morning stable -Continue to monitor Hgb/Hct and symptoms. If Hgb drops below 8 again, consider repeat transfusion. -Will repeat H&H and PRP in AM -FOB pending 3. AFib -Rate controlled -Continue Amiodarone 200 mg daily, Lopressor 25 mg BID, Lipitor 20 mg daily, Coumadin with goal INR of 2.0-3.0, Continue Lovenox pending therapeutic INR -Continue Magnesium oxide, Synthroid 4. Probable CKD stage 4 -Continue to monitor Creatinine- will recheck in AM 5. Hyperglycemia -Continue to monitor glucose level, A1C is 6.3 6. DVT Ppx -Lovenox --> Coumadin bridge Continued [facility] stay due to: inadequate po fluid intake, inadequate oral pain control, voiding difficulties, ambulation difficulties, multiple IV medications needed, home environment unsafe for pt Discharge planning: detention facility (For possible discharge tomorrow pending repeat labs) (Laura Mcdonnell ., PA-C) Attending Attestation: Pt seen/examined, chart reviewed, and care plan d/w MICHELLE Chambers. I agree w/ the maya components of her documentation. Multiple Bowel Movements since yesterday. Slept better last pm. Tele normal. Appetite fair however. NO dyspnea. VSS no fever gen - nad neck - no JVD heart - irregular, s1, s2 lungs - CTA b/l abd - soft, NT, ND, BS+ ext - mild edema left thigh, pulses 2+ b/l skin - incisions left thigh clean; ecchymoses extending from right shoulder down the arm towards the right elbow labs - Cr 1.7 Hb 9.9 A/P: 1. left hip Fx, s/p ORIF - POD #4 - stable from ortho standpoint 2. DVT proph - lovenox SC while awaiting coumadin to become therapeutic 3. a. fib - rates controlled with low-dose metoprolol; takes amiodarone chronically but it appears to have not kept her NSR; defer to her primary special agent group insurance ultimate plan for amiodarone; cont coumadin 4. CKD stage 4 (likely) - creatinine unchanged; repeat BMP for stability 5. acute blood loss anemia - s/p 1 unit PRBCs yesterday; H/H stable today; cont iron; cbc in am; hemoccult pending just to be complete 6. right shoulder pain - s/p injection by ortho; pain is likely due to recent trauma; voltaren gel QID + k-pad 7. constipation - resolved 8. hospital psychosis - resolved, has not recurred 9. pre-DM - newly discovered; sugars acceptable with diet control alone; pt/ daughter aware of prediabetes 10. wall motion abnormalities on echo - will recommend f/u with primary special agent group insurance; no ischemic symptoms d/c emilee tx to med/surg daughter updated at bedside d/c to [facility] [place] - hopefully on Tuesday Girma Fuentes MD (Girma Fuentes MD)
[2017-07-24] MEDS: WARFARIN SOD 2.5 MG TAB PO SCH (16:29)
[2017-07-24] MEDS: LORAZEPAM 0.5 MG TAB PO SCH (20:51)
[2017-07-24] MEDS: DOCUSATE SODIUM/SENNA 50/8.6MG TAB PO SCH (20:53)
[2017-07-25] MEDS: HYDROCODONE/ACETAMOPHEN 5/325MG TAB PO PRN ×3 (01:03→16:24)
[2017-07-25] MEDS: LEVOTHYROXINE 50 MCG TAB PO SCH (05:47)
[2017-07-25 06:49] LABS: MEAN CELL VOLUME 93.2 fL (80-100); MEAN CORPUSCULAR HEMOGLOBIN 31.1 pg (25-34); MEAN CORPUSCULAR HGB CONC 33.3 g/dl (32-36); MEAN PLATELET VOLUME 10.2 fL (7.4-10.4); PLATELET COUNT 152 K/uL (130-400); RED BLOOD COUNT 3.54 M/uL (4.2-5.4); WHITE BLOOD COUNT 8.92 K/uL (4.8-10.8)
[2017-07-25 06:56] VITALS: BP 111/73; PULSE 72; TEMP 36.9; O2SAT 95
[2017-07-25 06:59] LABS: INR 1.2 (0.9-1.1); PROTHROMBIN TIME (PATIENT) 12.6 SECONDS (9.0-12.0)
[2017-07-25 07:19] LABS: BUN/CREATININE RATIO 38.4 (10-20); CALCIUM 8.5 mg/dl (8.5-10.1); CREATININE 1.4 mg/dl (0.60-1.20); POTASSIUM 4.2 mmol/L (3.5-5.1)
[2017-07-25] MEDS: MAGNESIUM OXIDE 400 MG TAB PO SCH (08:46)
[2017-07-25] MEDS: SENNA 8.6 MG TAB PO SCH (08:46)
[2017-07-25] MEDS: METOPROLOL TARTRATE 25 MG TAB PO SCH (08:46)
[2017-07-25] MEDS: FERROUS SULFATE 325 MG TAB PO SCH (08:46)
[2017-07-25] MEDS: DICLOFENAC SOD 1% GEL 100 GM TUBE EXT SCH ×2 (08:46→12:58)
[2017-07-25] MEDS: ENOXAPARIN 30 MG/0.3 ML SYR SQ SCH (08:47)
[2017-07-25] MEDS: POLYETHYLENE (MIRALAX) 17 GM PACK PO SCH (08:47)
[2017-07-25] MEDS: ATORVASTATIN 20 MG TAB PO SCH (08:47)
[2017-07-25] MEDS: AMIODARONE 200 MG TAB PO SCH (08:47)
[2017-07-25] MEDS ORDERED: VLTG EXT (09:38)
[2017-07-25] MEDS ORDERED: FRRS300 PO (09:38)
[2017-07-25] MEDS ORDERED: HYDR-5688 PO (09:38)
[2017-07-25] MEDS ORDERED: CMD25 PO (09:38)
[2017-07-25] MEDS ORDERED: LVNIS30 SQ (09:38)
[2017-07-25] MEDS ORDERED: MRLP17 PO (09:38)
[2017-07-25] MEDS ORDERED: LPR25 PO (09:38)
--- NOTE | 2017-07-25 10:03 | Discharge Summary ---
Discharge Summary Date of Service Jul 25, 2017. (Juliana Ramesh, ANTHONY) Discharge Summary Admission Date: Jul 20, 2017 at 03:42 Discharge Date: Jul 25, 2017 Discharge Disposition: Rehab Principal Diagnosis: L hip fracture Problems/Secondary Diagnoses: L hip fracture s/p ORIF with trochanteric femoral nail fixation A.fib w/ RVR Acute blood loss anemia HTN Hypomagnesemia Hyperlipidemia h/o TIA Pre-diabetic, HgbA1C 6.3%: CKD, ?stage III-IV Hypothyroidism Constipation Procedures: ECHOCARDIOGRAM: Interpretation Summary * Name: LUIS VYAS Study Date: 07/20/2017 08:33 AM BP: 100/56 mmHg * Patient Location: [facility]\S\[facility] 1\S\1 HR: 83 * : 1935 (M/d/yyyy) Gender: Female * Age: 82 yrs Ethnicity: [place] Weight: 139 lb * Ordering Physician: Isaias Hurtado * Performed By: Lauren López * * Reason For Study: CHF * -- Conclusions -- * The study was technically difficult. * Limited views were obtained. * Left ventricular systolic function is normal. * There are regional wall motion abnormalities as specified. * Aortic valve sclerosis mild, without significant aortic valvular stenosis. * Mild aortic regurgitation. * Right ventricular systolic pressure is elevated at 30-40mmHg. Procedure Details * A complete two-dimensional transthoracic echocardiogram was performed (2D, M- mode, Doppler and color flow Doppler). * The study was technically difficult. * There were technical limitations due to patient'spoor positioning * A contrast injection of Definity was performed to improve assessment of LV function. * Contrast was injected into an intravenous site in the left arm. * One vial of Definity ultrasound contrast was diluted in normal saline to a total volume of 10 ml. A total of '3' ml of solution was administered during imaging. * Lot # [id number] of Definity utilized for procedure. * Expiration date 08/24. * The attending nurse who injected the contrast agent was GORGE SIDDIQI RN. * Limited views were obtained. Left Ventricle * Ejection Fraction = 60-65%. * Left ventricular systolic function is normal. * There are regional wall motion abnormalities as specified. * Basal posterior segment is dyskinetic. Mitral Valve * The mitral valve is not well visualized. Tricuspid Valve * The tricuspid valve is not well visualized. * There is mild tricuspid regurgitation. * Right ventricular systolic pressure is elevated at 30-40mmHg. Aortic Valve * The aortic valve is trileaflet. * Aortic valve sclerosis mild, without significant aortic valvular stenosis. * No hemodynamically significant valvular aortic stenosis. * Mild aortic regurgitation. Pericardium/Pleural * There is no pericardial effusion. Immediate Operative Summary Operative Date Jul 20, 2017. Pre-Operative Diagnosis Left intertrochanteric hip fracture Post-Operative Diagnosis Left intertrochanteric hip fracture Procedure(s) Performed Open Reduction Internal Fixation Left Hip with Left Troch Nail Surgeon Dr. Garcia Cylinder Machine Operator Surgeon(s) tiffani MARTINEZ Estimated Blood Loss 25ml Findings OSTEOPOROSIS PROXIMAL Specimens None Drains none Anesthesia general Complication(s) None Disposition Recovery Room / PACU <Electronically signed by Barron Garcia M.D.> Signed: 07/20/17 1827 Signed: The status of this report is Signed * If report status is Draft, the document has not been finalized by the responsible provider CT HEAD WITHOUT CONTRAST (CT) CLINICAL HISTORY: Head trauma. Patient on Coumadin. COMPARISON STUDY: No previous studies for comparison. TECHNIQUE: Axial CT of the brain is performed from the vertex to the skull base. IV contrast was not administered for this examination. A dose lowering technique was utilized adhering to the principles of ALARA. CT DOSE: 537.48 mGy.cm FINDINGS: No intra or extra-axial mass lesions are visualized. There is no CT evidence of acute cortical infarction. There is no evidence of midline shift. There is no acute hemorrhage. No calvarial fractures are visualized. There are minor white matter hypodensities likely on a small vessel basis. There is no evidence of pathologic ventricular dilatation. There is mucosal thickening within the sphenoid maxillary ethmoid and frontal sinuses. There are polypoid densities of the nasal cavity. IMPRESSION: No acute intracranial findings Electronically signed by: Greg Bernabe M.D. 07/20/2017 6:33 AM Dictated Date/Time: 07/20/2017 6:32 AM The status of this report is Signed. Draft = Not yet reviewed or approved by Radiologist. Signed = Reviewed and approved by Radiologist. LEFT HIP OR FILMS CLINICAL HISTORY: LT TROCH NAIL COMPARISON STUDY: None FLUOROSCOPY TIME: 1 minute 20 seconds. FINDINGS: Image intensifier used for left pain IMPRESSION: Image intensifier used for left hip pinning The above report was generated using voice recognition software. It may contain grammatical, syntax or spelling errors. Electronically signed by: Doyle Crespo M.D. 07/20/2017 7:07 PM Dictated Date/Time: 07/20/2017 7:06 PM The status of this report is Signed. Draft = Not yet reviewed or approved by Radiologist. Signed = Reviewed and approved by Radiologist. PELVIS 1 OR 2 VIEW ROUTINE CLINICAL HISTORY: 82 years-old Female presenting with fall/trauma, known left hip fracture. TECHNIQUE: Single frontal view of the pelvis was obtained. COMPARISON: Correlation made to plain radiographs of the left hip performed the previous day at an outside hospital. FINDINGS: Osteopenia suggested. Evidence of an intertrochanteric left femoral neck fracture with up to 8 mm of diastases at the fracture plane. No abnormal angulation. Femoral heads remains congruent in the acetabula. No additional pelvic fracture is evident. IMPRESSION: Redemonstration of the intertrochanteric left femoral neck fracture with up to 8 mm of diastases at the fracture plane. Electronically signed by: Shaun Allison M.D. 07/20/2017 7:06 AM Dictated Date/Time: 07/20/2017 7:04 AM The status of this report is Signed. Draft = Not yet reviewed or approved by Radiologist. Signed = Reviewed and approved by Radiologist. CHEST ONE VIEW PORTABLE CLINICAL HISTORY: 82 years-old Female presenting with Fall/Trauma. TECHNIQUE: Portable upright AP view of the chest was obtained. COMPARISON: None. FINDINGS: Mildly low lung volumes with prominence of the artifacts silhouette. Suggestion of hazy bilateral lung opacities with linear opacities at the left lung base. Osteopenia. Degenerative changes of the spine with the curvature in the upper lumbar region. Upper abdomen normal. IMPRESSION: 1. Mildly low lung volumes with hypoventilatory changes. Apparent hazy bilateral opacities could relate to overlapping structures secondary to patient body habitus. Left basilar atelectasis. Electronically signed by: Shaun Allison M.D. 07/20/2017 6:56 AM Dictated Date/Time: 07/20/2017 6:54 AM The status of this report is Signed. Draft = Not yet reviewed or approved by Radiologist. Signed = Reviewed and approved by Radiologist. KUB CLINICAL HISTORY: 82 years-old Female presenting with r/o ileus, etc. TECHNIQUE: Single supine view of the abdomen was obtained. COMPARISON: None. FINDINGS: Image quality is limited due to patient body habitus. Within this limitation, nonobstructive bowel gas pattern. No gross pneumoperitoneum. Scoliotic curvature of the lumbar spine. Osteopenia may be present. Intertrochanteric fracture of the left femoral neck again noted with approximate 8 mm of diastases at the fracture plane. IMPRESSION: 1. No convincing evidence of bowel obstruction or ileus allowing for limited image quality. Electronically signed by: Shaun Allison M.D. 07/20/2017 2:44 PM Dictated Date/Time: 07/20/2017 2:42 PM The status of this report is Signed. Draft = Not yet reviewed or approved by Radiologist. Signed = Reviewed and approved by Radiologist RIGHT SHOULDER 3 VIEWS HISTORY: Right shoulder pain. COMPARISON: None. FINDINGS: The bones are osteopenic. Mild deformity right humeral neck favors an old, healed fracture. There are few small ossific densities with in the glenohumeral joint consistent with intra-articular loose bodies. These may be due to old injury. The right clavicle is intact. Moderate glenohumeral joint osteoarthritis. Soft tissues are unremarkable. No radiopaque foreign bodies. IMPRESSION: 1. No definite acute fracture or dislocation within the right shoulder. 2. Old posttraumatic changes as described above. 3. Moderate glenohumeral joint osteoarthritis. Electronically signed by: Eloy Garcia M.D. 07/21/2017 9:36 AM Dictated Date/Time: 07/21/2017 9:33 AM The status of this report is Signed. Draft = Not yet reviewed or approved by Radiologist. Signed = Reviewed and approved by Radiologist. Consultations: Orthopedics (Juliana Ramesh, ANTHONY) Medication Reconciliation New Medications: Diclofenac Sod (Voltaren) 100 Appln/100 Gm Gel 1 APPLN EXT QID for 30 Days Enoxaparin (Lovenox) 30 Mg/0.3 Ml Inj 30 MG SQ QAM for 10 Days Ferrous Sulfate (Ferrous Sulfate) 325 Mg Tab 325 MG PO BIDM for 30 Days, TAB Hydrocodone/Acetaminophen 5MG/325MG ([place] 5MG/325MG) Tab 1 TAB PO Q6H PRN for Pain for 3 Days, #12 TAB PRN PAIN Metoprolol Tartrate (Lopressor) 25 Mg Tab 12.5 MG PO BID for 30 Days, #30 TAB Polyethylene (Miralax) 17 Gm Pow 17 GM PO DAILY for 30 Days Changed Medications: Warfarin Sod (Coumadin) 2.5 Mg Tab 2.5 MG PO DAILY for 30 Days (Changed from: 3XWK; Removed Instructions) Continued Medications: Amiodarone Hcl (Cordarone) 200 Mg Tab 200 MG PO DAILY, TAB Atorvastatin (Lipitor) 20 Mg Tab 20 MG PO DAILY, TAB B-Complex Vitamins (Vitamin B Complex) 1 Tab Tab 1 TAB PO daily @ noon Docusate Sodium (Colace) 100 Mg Cap 100 MG PO DAILY Levothyroxine Sodium (Synthroid) 50 Mcg Tab 50 MCG PO DAILY, TAB Magnesium Oxide (Mag-Ox) 400 Mg Tab 400 MG PO DAILY, TAB Discontinued Medications: Acetaminophen/Codeine (Tylenol W/Codeine #3) 300 Mg/30 Mg Tab 2 TAB PO Q4 PRN for Pain Hydrochlorothiazide (Hctz) 25 Mg Tab 25 MG PO DAILY, TAB Lisinopril (Zestril) 20 Mg Tab 20 MG PO DAILY, TAB Discharge Exam Review of Systems: Constitutional: No fever, No chills, No sweats, No weakness, No fatigue Respiratory: No cough, No shortness of breath, No hemoptysis Cardiovascular: No chest pain, No edema, No palpitations Abdomen: No pain, No nausea, No vomiting, No diarrhea, No constipation Musculoskeletal: + joint pain, + muscle pain, No swelling, No calf pain Genitourinary - Female: No dysuria, No hematuria Neurologic: No weakness, No numbness/tingling Hematologic / Lymphatic: No abnormal bleeding/bruising Integumentary: No rash, No new/changing skin lesions Physical Exam: General Appearance: no apparent distress, + obese Eyes: normal inspection, PERRL ENT: hearing grossly normal Neck: supple Respiratory/Chest: lungs clear, no respiratory distress, no accessory muscle use Cardiovascular: + irregularly irregular (rate controlled ) Abdomen / GI: normal bowel sounds, non tender, soft Extremities: no calf tenderness, no pedal edema, + pertinent finding (L hip incision- no obvious erythema or drainage ) Neurologic/Psychiatric: alert, normal mood/affect, oriented x 3 Skin: normal color, warm/dry, no rash (Juliana Ramesh, ANTHONY) Hospital Course Admission H&P: 82 y/o F Hx AF, CHF, HTN, HPL, hypothyroid. Suffered a fall earlier in day sustaining a L intertrochanteric fracture. Pt was transferred from [facility] for treatment. The pt's HR was 150 on arrival to the ER. She responded to a small dose of IV Cardizem. She denies symptoms preceding her fall such as CP, palpitations, lightheadedness. Physical Exam Vital Signs Date Time Temp Pulse Resp B/P (MAP) Pulse Ox O2 Delivery O2 Flow Rate FiO2 07/20/17 02:30 108 20 116/87 100 07/20/17 01:34 93 Nasal Cannula 3.0 07/20/17 01:32 100 17 83 Room Air 07/20/17 01:31 133/85 07/20/17 01:30 94 14 92 07/20/17 01:28 99 15 07/20/17 01:26 78 19 07/20/17 01:24 95 16 92 07/20/17 01:22 96 24 07/20/17 01:20 93 25 07/20/17 01:19 130/71 07/20/17 01:18 95 91 07/20/17 01:17 128/87 07/20/17 01:17 114 104/67 07/20/17 01:16 101 19 91 07/20/17 01:15 121/66 07/20/17 01:14 88 18 91 07/20/17 01:13 114/69 07/20/17 01:12 101 16 07/20/17 01:10 103 14 94 07/20/17 01:09 104/68 07/20/17 01:08 121 15 97 07/20/17 01:06 133 20 92 07/20/17 01:04 128 21 95 07/20/17 01:02 142 21 95 07/20/17 01:00 141 19 103/85 90 07/20/17 00:58 145 21 94 07/20/17 00:56 147 16 94 07/20/17 00:54 150 24 Room Air 07/20/17 00:52 137 20 91 07/20/17 00:50 146 21 Room Air 07/20/17 00:48 145 12 94 07/20/17 00:47 147 07/20/17 00:46 149 15 93 07/20/17 00:42 100/65 07/20/17 00:38 36.7 127 18 100/65 93 Room Air General Appearance: + pertinent finding (Pleasant, elderly female in no acute distress) Head: normocephalic Eyes: normal inspection ENT: normal ENT inspection, pharynx normal, + pertinent finding (does not have teeth) Neck: supple, no JVD Respiratory/Chest: chest non-tender, lungs clear, normal breath sounds Cardiovascular: no edema, normal peripheral pulses, + irregularly irregular Abdomen/GI: normal bowel sounds, non tender, soft Back: normal inspection, no CVA tenderness Extremities/Musculoskelatal: no calf tenderness, normal capillary refill, no pedal edema, + pertinent finding (rotation of the LLe is noted ) Neurologic/Psych: sod stripper II-XII nml as tested, no motor/sensory deficits, alert, oriented x 3 Skin: normal color, warm/dry Hospital Course: Instructions / Follow-Up L hip fracture s/p ORIF with trochanteric femoral nail fixation by Dr. Garcia on 07/20: - Pain management, PT/OT as per orthopedics -- Pain medications: [place] 5/325 mg q6 hrs PRN pain - Bowel regimen: MiraLAX daily, Senokot HS, Colace daily, Milk of Mag PRN, Dulcolax suppository PRN, Fleet enema PRN- last BM 07/24 R shoulder pain, secondary to bursitis and DJD s/p R shoulder injection on 07/22: - R shoulder x-ray: no acute findings, osteoarthritis - Pain management as above + Voltaren Gel QID A.fib w/ RVR- rate currently controlled: - RVR treated w/ IV Cardizem - Amiodarone 200 mg daily - Started Lopressor 12.5 mg BID for rate control - Lovenox 30 mg SQ daily bridge w/ Coumadin 2.5 mg daily until INR therapeutic ( 2-3) Acute blood loss anemia- transfused 1 unit PRBC's on 07/23- STABLE: - H&H followed - Iron supplement BID HTN- STABLE: - HCTZ and Lisinopril discontinued due to initiating Lopressor and acceptable BP control - Lopressor as above Hypomagnesemia- RESOLVED: - Replaced w/ IV mag - Continue Mag-Ox supplement, follow mag level Hyperlipidemia: Continue Lipitor 20 mg daily h/o TIA: ASA and statin therapy Pre-diabetic, HgbA1C 6.3%: - BSG ACHS and sliding insulin scale - T2DM diet CKD, ?stage III-IV- unsure of baseline Cr, ranging from 1.4-1.7- STABLE Hypothyroidism- TSH 1.930 on 07/20: Continue Synthroid 50 mcg daily DVT prophylaxis: Lovenox SQ/Coumadin Code Status: LEVEL I, FULL Dispo: Discharge to [facility] Total Time Spent: Greater than 30 minutes This includes examination of the patient, discharge planning, medication reconciliation, and communication with other providers. (Juliana Ramesh, PA-C) i personally examined pt and verified all maya points w Aure Ramesh PAC anxious about getting out of bed but wants to move more. vitals noted nad breathing unlabored no pallor or icterus hip fx - stable for rehab as above, follow INR, can likely stop lovenox early depending on INR (Yannick Layton D.O.) Discharge Instructions Please refer to the electronic Patient Visit Report (Discharge Instructions) for additional information. (Juliana Ramesh, PA-C) Follow-Up Follow-up with [facility] provider within 24-48 hours Please follow-up with your PCP within 5-7 days after discharge from [facility] Rehab Please follow-up with Orthopedics within 2 weeks Please follow-up/keep all of your subspecialty appointments (Juliana Ramesh, PA-C) Additional Copies To Ty Guidry M.D.
--- NOTE | 2017-07-25 10:05 | Discharge Instructions ---
Discharge Instructions Date of Service Jul 25, 2017. Admission Reason for Admission: Atrial Fib W Rvr, Intertrochanteric Fx Left Hip Discharge Discharge Diagnosis / Problem: Intertrochanteric L hip fracture; atrial fib w/ RVR Discharge Goals Goal(s): Decrease discomfort, Improve function, Improve nutritional status, Diagnostic testing, Therapeutic intervention, Prevent Disease Progression Activity Recommendations Activity Limitations: per Instructions/Follow-up section (As per orthopedics recommendations ) . Instructions / Follow-Up Instructions / Follow-Up L hip fracture s/p ORIF with trochanteric femoral nail fixation by Dr. Garcia on 07/20: - Pain management, PT/OT as per orthopedics -- Pain medications: [place] 5/325 mg q6 hrs PRN pain - Bowel regimen: MiraLAX daily, Senokot HS, Colace daily, Milk of Mag PRN, Dulcolax suppository PRN, Fleet enema PRN- last BM 07/24 R shoulder pain, secondary to bursitis and DJD s/p R shoulder injection on 07/22: - R shoulder x-ray: no acute findings, osteoarthritis - Pain management as above + Voltaren Gel QID A.fib w/ RVR- rate currently controlled: - RVR treated w/ IV Cardizem - Amiodarone 200 mg daily - Started Lopressor 12.5 mg BID for rate control - Lovenox 30 mg SQ daily bridge w/ Coumadin 2.5 mg daily until INR therapeutic ( 2-3) Acute blood loss anemia- transfused 1 unit PRBC's on 07/23- STABLE: - H&H followed - Iron supplement BID HTN- STABLE: - HCTZ and Lisinopril discontinued due to initiating Lopressor and acceptable BP control - Lopressor as above Hypomagnesemia- RESOLVED: - Replaced w/ IV mag - Continue Mag-Ox supplement, follow mag level Hyperlipidemia: Continue Lipitor 20 mg daily h/o TIA: ASA and statin therapy Pre-diabetic, HgbA1C 6.3%: - BSG ACHS and sliding insulin scale - T2DM diet CKD, ?stage III-IV- unsure of baseline Cr, ranging from 1.4-1.7- STABLE Hypothyroidism- TSH 1.930 on 07/20: Continue Synthroid 50 mcg daily DVT prophylaxis: Lovenox SQ/Coumadin Code Status: LEVEL I, FULL Dispo: Discharge to [facility] FOLLOW-UPS: Follow-up with [facility] provider within 24-48 hours Please follow-up with your PCP within 5-7 days after discharge from [facility] Rehab Please follow-up with Orthopedics within 2 weeks Please follow-up/keep all of your subspecialty appointments Current Hospital Diet Patient's current hospital diet: Diabetes Type 2 Diet Discharge Diet Recommended Diet: Diabetes Type 2 Diet Procedures Procedures Performed: Open Reduction Internal Fixation Left Hip with Left Troch Nail Pending Studies Studies pending at discharge: no Laboratory Results Hemoglobin A1c Test 07/23/17 15:25 Range/Units Estimated Average Glucose 134 mg/dl Hemoglobin A1c 6.3 H 4.5-5.6 % Medical Emergencies . Who to Call and When: Medical Emergencies: If at any time you feel your situation is an emergency, please call 911 immediately. . Non-Emergent Contact Non-Emergency issues call your: Primary Care Provider Call Non-Emergent contact if: your pain is not controlled, your pain is worsening, your pain is unusual for you, your pain is concerning you, wound has increased drainage, wound has increased redness, wound has increased pain, you have any medication questions . . "Provider Documentation" section prepared by Juliana Ramesh. . Cricket Coach Recommendations Cricket Coach Recommendations: [facility] [place] DISCHARGE INSTRUCTIONS: HIP FRACTURE SELF CARE INSTRUCTIONS: A. You are to ambulate with a walker or crutches for approximately 6 weeks. B. You are TOE TOUCH WEIGHT BEARING on your operative lower extremity for at least 6 weeks. C. Wear low heeled shoes with non-slip soles D. Be sure that your floors are free of things that could trip you throw rugs, electrical cords, and small objects. Avoid wet and waxed floors, especially with crutches/walker/cane. E. Try to walk several times a day with rest periods between. F. You may shower 48 hours after surgery and get the incision area wet, but DO NOT soak or submerge incision area in water. (No baths, swimming pools, hot tubs ) G. You may have a large, band-aid like dressing over your incision (Aquacel). This will remain on your incision for 7 days, and then can be removed. You CAN shower with this on. If incision is leaking through the dressing, please call the office . H. Do NOT apply soap or any ointment/lotions directly over incision. I. You may use ice as needed to operative site. SPECIAL CARE INSTRUCTIONS: VERY IMPORTANT TO READ AND REVIEW A. You may be at risk for phlebitis or blood clots. a. Wear surgical stockings (ROGERIO hose) for 2 weeks after surgery to improve circulation and reduce swelling. b. Take LOVENOX 30mg SQ QD as directed. This is your blood thinner. This may be stopped prior to your hospital discharge if your Coumadin levels are therapeutic. c. If you are on Coumadin- you will have daily/weekly blood work to monitor your levels. This will be done by either your family physician/ pv installer tech (if you are on Coumadin chronically) versus your orthopedic surgeon. Expect a phone call the day of or the day after your blood work is drawn to adjust your dose accordingly. B. There are a few signs you need to watch for after you are home. Call [facility] at [phone] if you experience any of the following: a. If you have a temperature of 101 degrees or higher. b. Sudden increase in pain in your hip not relieved by rest or pain medication. c. Any fluid or drainage from the incision; redness of the incision. d. Shortness of breath or chest pain. B. Please call [facility] at [phone] if you have any questions or concerns about your operation or recovery. C. Call your physician if: a. Temperature is greater than 101 degrees (F). b. Pain is not relieved by prescribed pain medications. c. Increase drainage or redness from incision. d. Unanswered questions or concerns. D. Pain Medication: a. You will be prescribed pain medication upon discharge that should last till your first post-operative appointment. b. If you experience nausea and/or skin rash, discontinue this medication and contact our office for an alternative medication. c. Caution- narcotic pain medication can cause constipation. FOLLOW UP VISIT: Please call [facility] at [phone] to schedule a follow up appointment 10-14 days from the date of your surgery date. VTE Core Measure Inpt VTE Proph given/why not?: Enoxaparin (Lovenox)SQ, Warfarin (Coumadin)
[2017-07-25 15:07] VITALS: BP 158/82; PULSE 94; TEMP 36.7; O2SAT 94
[2017-07-25] MEDS ORDERED: NURSING VERBAL MED ORDER ONE (15:15)
[2017-07-25] MEDS: WARFARIN SOD 2.5 MG TAB PO SCH (16:23)
== END 2017-07-25 16:30 | DRG 481 ==
LOC: EDBD 00:38 → C.EDB 00:40 → C.EDINP 03:42 → ENRESERV 11:32 → C.2E 11:55 → ENRESERV 07-24 12:12 → C.MSN 07-24 13:29
PROVIDERS: ADMIT Internal Medicine; ATTEND Family Medicine
PROC: 0QS706Z Reposition Left Upper Femur with Intramedullary Internal Fixation Device, Open Approach (ICD-10-PCS; principal; 2017-07-20 13:45)
PROC: 3E0U3BZ Introduction of Anesthetic Agent into Joints, Percutaneous Approach (ICD-10-PCS; 2017-07-22)
PROC: 3E0U33Z Introduction of Anti-inflammatory into Joints, Percutaneous Approach (ICD-10-PCS; 2017-07-22)
DX: S72.142A Displaced intertrochanteric fracture of left femur, initial encounter for closed fracture (principal); I13.0 Hypertensive heart and chronic kidney disease with heart failure and stage 1 through stage 4 chronic kidney disease, or unspecified chronic kidney disease; I50.32 Chronic diastolic (congestive) heart failure; N18.4 Chronic kidney disease, stage 4 (severe); D62 Acute posthemorrhagic anemia; K56.7 Ileus, unspecified; W10.9XXA Fall (on) (from) unspecified stairs and steps, initial encounter; E83.42 Hypomagnesemia; E87.6 Hypokalemia; R79.89 Other specified abnormal findings of blood chemistry; M19.011 Primary osteoarthritis, right shoulder; M75.51 Bursitis of right shoulder; R09.02 Hypoxemia; K59.00 Constipation, unspecified; R63.0 Anorexia; R73.03 Prediabetes; F29 Unspecified psychosis not due to a substance or known physiological condition; I48.91 Unspecified atrial fibrillation; E78.5 Hyperlipidemia, unspecified; E03.9 Hypothyroidism, unspecified; R93.1 Abnormal findings on diagnostic imaging of heart and coronary circulation; E66.9 Obesity, unspecified; Z68.29 Body mass index [BMI] 29.0-29.9, adult; Z86.73 Personal history of transient ischemic attack (TIA), and cerebral infarction without residual deficits; Z87.891 Personal history of nicotine dependence; Z79.01 Long term (current) use of anticoagulants; Z79.899 Other long term (current) drug therapy

== ENCOUNTER 2017-09-17 15:36 | Inpatient (IN) | payer OTHER ==
[~2017-09-17] VITALS: Ht 137.2 cm; Wt 54.0 kg
[~2017-09-17 15:36] MED LIST: AMIO200T4 PO; ATOR-22 PO; B-COTAB18 PO; CMD25 PO; DOCU-94 PO; FRRS300 PO; HYDR-5688 PO; LEVO50TA PO; LPR25 PO; LVNIS30 SQ; MAGN400T6 PO; MRLP17 PO; VLTG EXT
[2017-09-17 17:50] VITALS: BP 124/74; PULSE 89; TEMP 36.9; O2SAT 97
[2017-09-17 18:30] VITALS: O2SAT 97; Ht 137.2 cm; Wt 54.0 kg
[2017-09-17] MEDS ORDERED: PNEUMOCOCCAL POLYSACCHARIDES 25 MCG/0.5 ML VIAL/SYR IM. ONE (18:30)
[2017-09-17] MEDS ORDERED: INFLUENZA ADMINISTRATION CHARGE ONE (18:30)
[2017-09-17] MEDS ORDERED: INFLUENZA VIRUS QUAD VACCINE 0.5 ML SYR IM. ONE (18:30)
[2017-09-17] MEDS ORDERED: HEPARIN SOD 5000 UNIT/0.5 ML CARP SQ SCH (18:30)
[2017-09-17] MEDS ORDERED: PNEUMOCOCCAL ADMINISTRATION CHARGE ONE (18:30)
[2017-09-17] MEDS ORDERED: ALBUT/IPRATROP 3MG/0.5MG NEB 3 ML VIAL INH PRN (18:30)
--- NOTE | 2017-09-17 18:37 | History and Physical ---
History & Physical Date & Time of Service: Sep 17, 2017 at 18:37 Chief Complaint: Pneumonia Primary Care Physician: Ty Guidry M.D. History of Present Illness 82 year old female from [place] presents to [facility] for a direct admission. Patient had been treated for about 5 days for pneumonia. Patient had no significant improvement. Patient was also taking cipro for UTI. Patient was confused by [place] staff and family and transfer was called to this hospital. Patient on arrival has improved after change of antibioitc and steroid dose. patient at this time is no longer confused. Past Medical/Surgical History Medical Problems: (1) Atrial fibrillation Status: Chronic Social History Smoking Status: Former Smoker Occupational Status: retired Allergies Coded Allergies: No Known Allergies (Unverified , 07/20/17) Home Medications Scheduled Acetaminophen (Tylenol), 2 TAB PO Q6 Amiodarone Hcl (Cordarone), 200 MG PO DAILY Atorvastatin (Lipitor), 20 MG PO DAILY Ceftriaxone Sod (Ceftriaxone Sodium), 1 GM IM DAILY Diltiazem Hcl Extended Release (Diltiazem Hcl Er), 1 CAP PO DAILY Famotidine (Pepcid), 20 MG PO DAILY Furosemide (Lasix), 1 TAB PO DAILY Ipratropium-Albuterol (Duoneb), 1 TREATMENT INH QID Lactobacillus (Acidophilus), 2 CAP PO BID Levothyroxine Sodium (Synthroid), 50 MCG PO DAILY Lorazepam (Ativan), 0.5 MG PO QHS Metoprolol Tartrate (Lopressor), 12.5 MG PO BID Potassium Ext Rel (Klor-Con), 20 MEQ PO DAILY Sennosides (Senna), 2 TABS PO DAILY Warfarin Sod (Coumadin), 2.5 MG PO DAILY Scheduled PRN Acetaminophen W/ Codeine (Tylenol W/Codeine #3), 1 TAB PO TID PRN for Pain Physical Exam Vital Signs Date Time Temp Pulse Resp B/P (MAP) Pulse Ox O2 Delivery O2 Flow Rate FiO2 09/17/17 17:50 36.9 89 24 124/74 (91) 97 Nasal Cannula 2.0 Diagnostics Laboratory Results Results Past 24 Hours Test 09/17/17 18:21 Range/Units Microbiology Results 09/17/17 Blood Culture, Ordered Pending 09/17/17 Blood Culture, Ordered Pending Impression Assessment and Plan Nosocmial acquired PNA (RML), likely aspiration will admit to med/surg will place patient on unasyn will monitor A. FIB on warfarin will check INR H/O CHF will continue with oral lasix monitor Is and Os VTE Prophylaxis VTE Risk Assessment Done? Y/N: Yes Risk Level: Moderate
[2017-09-17] MEDS ORDERED: AMPICILLIN/SULBACTAM CONSULT ACTIVE PRN ×2 (19:00)
[2017-09-17] MEDS ORDERED: ACET300T2 PO (19:03)
[2017-09-17] MEDS ORDERED: AMPICILLIN/SULBACTAM SOD INJ 3,000 MG in SODIUM CHLORIDE 0.9% 100ML 100 ML IV STA (19:03)
[2017-09-17] MEDS ORDERED: ACET-1256 PO (19:04)
[2017-09-17] MEDS ORDERED: LACTCAP3 PO (19:07)
[2017-09-17] MEDS ORDERED: IPRASOL4 INH (19:09)
[2017-09-17] MEDS ORDERED: [UNRECOGNIZED DRUG - CODE] IM (19:12)
[2017-09-17] MEDS ORDERED: FAMO20TA11 PO (19:13)
--- NOTE | 2017-09-17 19:16 | DIAGNOSTIC IMAGING REPORT ---
CHEST ONE VIEW PORTABLE CLINICAL HISTORY: 82 years-old Female presenting with pneumonia. TECHNIQUE: Portable upright AP view of the chest was obtained. COMPARISON: 07/20/2017. FINDINGS: Atherosclerosis of aortic arch. Cardiac silhouette top normal in size allowing for portable AP technique. Bibasilar linear opacities greater on the left. Prominent lung markings. No large effusion or pneumothorax. Osteopenia. Scoliotic curvature of the spine. Upper abdomen normal. IMPRESSION: 1. Bibasilar opacities greater on the left, possibly atelectasis or aspiration. 2. Prominent lung markings could suggest underlying chronic lung disease such as emphysema. Electronically signed by: Shaun Allison M.D. 09/17/2017 7:15 PM Dictated Date/Time: 09/17/2017 7:12 PM
[2017-09-17] MEDS ORDERED: DILT120C67 PO (19:17)
[2017-09-17] MEDS ORDERED: FURO-85 PO (19:18)
[2017-09-17] MEDS ORDERED: POTA20TA16 PO (19:20)
[2017-09-17] MEDS ORDERED: LORA-741 PO (19:29)
[2017-09-17 19:31] LABS: BASO % 0.1 %; BASO ABS # 0.01 K/uL (0-0.2); COMPLETE YES; IG% 0.6 %; LYMPH % 4.8 %; LYMPH ABS # 0.33 K/uL (1.2-3.4); MEAN CELL VOLUME 92.6 fL (80-100); MEAN CORPUSCULAR HEMOGLOBIN 30.9 pg (25-34); MEAN CORPUSCULAR HGB CONC 33.4 g/dl (32-36); MONO % 1.6 %; NEUT % 92.9 %; PLATELET COUNT 115 K/uL (130-400); RED BLOOD COUNT 4.43 M/uL (4.2-5.4); WHITE BLOOD COUNT 6.81 K/uL (4.8-10.8)
[2017-09-17] MEDS ORDERED: SENN8.6C PO (19:32)
[2017-09-17 19:49] LABS: BUN/CREATININE RATIO 9.9 (10-20); CALCIUM 8.7 mg/dl (8.5-10.1); CREATININE 1.48 mg/dl (0.60-1.20); POTASSIUM 3.7 mmol/L (3.5-5.1)
[2017-09-17 21:38] LABS: INR 1.3 (0.9-1.1); PROTHROMBIN TIME (PATIENT) 13.9 SECONDS (9.0-12.0)
[2017-09-17] MEDS ORDERED: WARFARIN SOD 2.5 MG TAB PO SCH (22:15)
[2017-09-17] MEDS: LORAZEPAM 0.5 MG TAB PO SCH (22:26)
[2017-09-17] MEDS: ACETAMINOPHEN 500 MG TAB PO SCH (22:27)
[2017-09-17 23:38] VITALS: BP 101/63; PULSE 75; TEMP 36.6; O2SAT 94
[2017-09-17] MEDS: WARFARIN SOD 2.5 MG TAB PO SCH (23:40)
[2017-09-18] VITALS (8 sets, daily range): BP systolic 112–121; BP diastolic 64–73; PULSE 76–111; TEMP 36.3–36.7; O2SAT 93–96
[2017-09-18] MEDS: ACETAMINOPHEN 500 MG TAB PO SCH ×3 (06:00→21:00)
[2017-09-18] MEDS: LEVOTHYROXINE 50 MCG TAB PO SCH (06:12)
[2017-09-18] MEDS: ALBUT/IPRATROP 3MG/0.5MG NEB 3 ML VIAL INH SCH ×4 (06:58→18:48)
[2017-09-18 07:22] LABS: BASO % 0.2 %; BASO ABS # 0.01 K/uL (0-0.2); COMPLETE YES; HEMATOCRIT 39.4 % (37-47); IG% 0.4 %; LYMPH % 13.1 %; LYMPH ABS # 0.64 K/uL (1.2-3.4); MEAN CELL VOLUME 92.9 fL (80-100); MEAN CORPUSCULAR HEMOGLOBIN 30.7 pg (25-34); MEAN PLATELET VOLUME 9.9 fL (7.4-10.4); NEUT % 77.3 %; PLATELET COUNT 114 K/uL (130-400); RED BLOOD COUNT 4.24 M/uL (4.2-5.4); WHITE BLOOD COUNT 4.89 K/uL (4.8-10.8)
[2017-09-18 07:43] LABS: INR 1.4 (0.9-1.1); PROTHROMBIN TIME (PATIENT) 14.7 SECONDS (9.0-12.0)
[2017-09-18] MEDS ORDERED: AMPICILLIN/SULBACTAM SOD INJ 3,000 MG in SODIUM CHLORIDE 0.9% 100ML 100 ML IV SCH (08:00)
[2017-09-18 08:01] LABS: BUN/CREATININE RATIO 15.1 (10-20); CALCIUM 8.7 mg/dl (8.5-10.1); CREATININE 1.37 mg/dl (0.60-1.20); MAGNESIUM 1.8 mg/dl (1.8-2.4); PHOSPHORUS 3.4 mg/dl (2.5-4.9); POTASSIUM 3.7 mmol/L (3.5-5.1)
[2017-09-18] MEDS: ATORVASTATIN 20 MG TAB PO SCH (08:26)
[2017-09-18] MEDS: FUROSEMIDE 20 MG TAB PO SCH (08:27)
[2017-09-18] MEDS: FAMOTIDINE 20 MG TAB PO SCH (08:29)
[2017-09-18] MEDS: SENNA 8.6 MG TAB PO SCH (08:29)
[2017-09-18] MEDS: METOPROLOL TARTRATE 25 MG TAB PO SCH ×2 (08:29→20:59)
[2017-09-18] MEDS: POTASSIUM CHLORIDE 20 MEQ TABCR PO SCH (08:29)
[2017-09-18] MEDS: DILTIAZEM HCL 120 MG EXT REL CAP PO SCH (08:30)
[2017-09-18] MEDS: AMIODARONE 200 MG TAB PO SCH (08:30)
[2017-09-18] MEDS: LACTOBACILLUS ACIDOPHILUS (FLORANEX) TAB PO SCH ×2 (08:31→20:58)
--- NOTE | 2017-09-18 09:16 | DIAGNOSTIC IMAGING REPORT ---
CHEST 2 VIEWS ROUTINE HISTORY: 82 years-old Female pneumonia acute pneumonia. Follow-up study. COMPARISON: Chest radiograph 09/17/2017 TECHNIQUE: PA and lateral views of the chest FINDINGS: Cardiac silhouette is mildly enlarged, unchanged. There is atherosclerosis of the aorta. Diffuse coarsened interstitial opacities are again seen within the lungs bilaterally suggesting chronic changes with hyperinflation and increased lucency. Linear subsegmental left basilar opacities suggest atelectasis. There is improved aeration of the lung bases. Several mid and lower thoracic compression deformities are seen, which are age-indeterminate. Background moderate bone demineralization. IMPRESSION: 1. Probable emphysema with chronic interstitial appearing opacities . 2. Improved aeration of the lung bases with linear subsegmental opacities on the left suggesting atelectasis/scarring. 3. Osteopenia with several mid and lower thoracic compression deformities, age indeterminate. The above report was generated using voice recognition software. It may contain grammatical, syntax or spelling errors. Electronically signed by: Alin Sexton M.D. 09/18/2017 9:15 AM Dictated Date/Time: 09/18/2017 9:11 AM
[2017-09-18] MEDS ORDERED: LEVOFLOXACIN 500 MG TAB PO SCH (13:45)
[2017-09-18] MEDS: METHYLPREDNISOLONE IV 40 MG in SYRINGE 0 ML IV SCH (14:43)
[2017-09-18] MEDS ORDERED: GUAIFENESIN 600 MG TABCR PO SCH (15:00)
[2017-09-18] MEDS ORDERED: BENZONATATE 100MG CAP PO PRN (15:30)
[2017-09-18] MEDS: DOXYCYCLINE HYCLATE 100 MG CAP PO SCH ×2 (15:57→20:59)
[2017-09-18] MEDS: WARFARIN SOD 2.5 MG TAB PO SCH (15:59)
--- NOTE | 2017-09-18 16:18 | Progress Note ---
Subjective Date of Service: Sep 18, 2017. Subjective Pt evaluation today including: conversation w/ patient, conversation w/ family (son, daughter at bedside), physical exam, chart review, lab review, review of studies (labs, records, cxr report - reviewed from [facility]), review of inpatient medication list Pain: denies PO Intake: fair daughter provided much of the history during my visit patient has been rehabbing at [facility] since her hip fracture ( left) in July was actually scheduled to be d/c home THIS WEEK since she was doing well from therapy standpoint records suggest she was treated with cipro for a UTI earlier this month started on doxycycline on 09/15/17 then started on rocephin on 09/16/17 for ? right-sided pneumonia steroids were also administered per the MAR that came from [facility] yesterday AM the daughter reports her mother was "lethargic and doing poorly" confused as well they asked for transfer here for additional medical care during the visit today the patient was mildly confused and at one point didn't realize she was in the hospital daughter confirms there was a low-grade fever 2 days ago +h/o tobacco use - quit 16 years ago; <1/4 ppd smoked 2-3 ppd gets "chest cold" about once yearly but no formal dx of asthma/COPD exists Problem List Medical Problems: (1) Atrial fibrillation with rapid ventricular response Status: Acute (2) Fall Status: Acute (3) Intertrochanteric fracture of left hip Status: Acute Review of Systems Constitutional: + fever, No chills, No sweats Respiratory: + cough, + sputum, + wheezing, + shortness of breath Cardiac: No chest pain, No orthopnea Abdomen: No pain Objective Vital Signs Date Time Temp Pulse Resp B/P (MAP) Pulse Ox O2 Delivery O2 Flow Rate FiO2 09/18/17 14:49 36.6 91 20 115/73 (87) 95 09/18/17 14:31 91 18 95 Room Air 09/18/17 11:24 103 18 93 Room Air 09/18/17 08:00 Room Air 09/18/17 07:03 36.7 94 20 115/64 (81) 96 1.0 09/18/17 06:58 103 18 96 Nasal Cannula 0.5 09/18/17 00:00 Nasal Cannula 2.0 09/17/17 23:38 36.6 75 18 101/63 (76) 94 1.0 09/17/17 18:30 97 Nasal Cannula 2.0 09/17/17 17:50 36.9 89 24 124/74 (91) 97 Nasal Cannula 2.0 Physical Exam General Appearance: no apparent distress, + pertinent finding (but coughing ( brassy, wheezy cough)) ENT: + pharyngeal erythema Neck: no JVD Respiratory/Chest: no respiratory distress, no accessory muscle use, + crackles (minimal left base), + rhonchi (occasional), + wheezing (extensive) Cardiovascular: no gallop, no murmur, + irregularly irregular Abdomen: normal bowel sounds, non tender, soft, no organomegaly Extremities: no pedal edema Neurologic/Psychiatric: alert, + disoriented Skin: + pertinent finding (scar, left hip, from previous hip surgery) Comments: back - kyphosis Laboratory Results Last 24 Hours Test 09/17/17 19:10 09/18/17 00:05 09/18/17 07:07 White Blood Count 6.81 K/uL 4.89 K/uL Red Blood Count 4.43 M/uL 4.24 M/uL Hemoglobin 13.7 g/dL 13.0 g/dL Hematocrit 41.0 % 39.4 % Mean Corpuscular Volume 92.6 fL 92.9 fL Mean Corpuscular Hemoglobin 30.9 pg 30.7 pg Mean Corpuscular Hemoglobin Concent 33.4 g/dl 33.0 g/dl Platelet Count 115 K/uL 114 K/uL Mean Platelet Volume 10.0 fL 9.9 fL Neutrophils (%) (Auto) 92.9 % 77.3 % Lymphocytes (%) (Auto) 4.8 % 13.1 % Monocytes (%) (Auto) 1.6 % 9.0 % Eosinophils (%) (Auto) 0.0 % 0.0 % Basophils (%) (Auto) 0.1 % 0.2 % Neutrophils # (Auto) 6.32 K/uL 3.78 K/uL Lymphocytes # (Auto) 0.33 K/uL 0.64 K/uL Monocytes # (Auto) 0.11 K/uL 0.44 K/uL Eosinophils # (Auto) 0.00 K/uL 0.00 K/uL Basophils # (Auto) 0.01 K/uL 0.01 K/uL RDW Standard Deviation 47.7 fL 47.0 fL RDW Coefficient of Variation 14.0 % 13.7 % Immature Granulocyte % (Auto) 0.6 % 0.4 % Immature Granulocyte # (Auto) 0.04 K/uL 0.02 K/uL Prothrombin Time 13.9 SECONDS 14.7 SECONDS Prothromb Time International Ratio 1.3 1.4 Sodium Level 133 mmol/L 133 mmol/L Potassium Level 3.7 mmol/L 3.7 mmol/L Chloride Level 95 mmol/L 96 mmol/L Carbon Dioxide Level 28 mmol/L 28 mmol/L Anion Gap 10.0 mmol/L 9.0 mmol/L Blood Urea Nitrogen 15 mg/dl 21 mg/dl Creatinine 1.48 mg/dl 1.37 mg/dl Est Creatinine Clear Calc Drug Dose 20.6 ml/min 22.3 ml/min Estimated GFR () 37.3 40.9 Estimated GFR (Non- 32.2 35.3 BUN/Creatinine Ratio 9.9 15.1 Random Glucose 187 mg/dl 144 mg/dl Calcium Level 8.7 mg/dl 8.7 mg/dl Pro-B-Type Natriuretic Peptide 3097 pg/ml Phosphorus Level 3.4 mg/dl Magnesium Level 1.8 mg/dl Assessment and Plan 82yo female - 1. acute bronchitis - I reviewed her chest x-rays from yesterday and today. She is hyperinflated with minimal amount of atelectasis in the left base. I don 't see discrete pneumonia. I think largely her exam is most consistent with acute bronchitis. There could be an element of pneumonia but less likely. Check rapid flu. Change antibiotics to doxycycline 100mg BID. Start solumedrol 40mg q12h. Duonebs q6h. robitussin q6h. incentive spirometry. Follow blood cultures but suspect they will be negative. Her chest x-rays at [facility] and here suggest chronic interstitial markings. I believe she likely has a mild amount of chronic lung disease likely from previous tobacco use as well as heavy secondhand smoke exposure. Could consider outpatient PFTs in the future once over the acute illness. Low threshold to broaden her antibiotics if she fails to improve. 2. encephalopathy - likely metabolic from #1. Toxic causes including steroid psychosis also possible but felt to be less likely. Supportive care; avoid benzos/sedatives except for her typical ativan she takes chronically at bedtime. 3. a. fib - rates acceptable; coumadin; daily INR. Cont CCB, BB, and amiodarone although I am unsure that amiodarone is helpful given that she is in a.fib and not sinus. 4. hypothyroidism - apparently has lost weight recently. Will check TSH in am to ensure euthyroid state. 5. thrombocytopenia - in July here her platelets were low-normal as well. Check b12/folate to be complete and follow platelets serially. 6. h/o left hip ORIF due to fracture - has made nice recovery from such. Was going to be released from [facility] THIS WEEK. PT, OT to ensure she can return home after discharge from [facility]. 7. GERD - PPI. 8. CKD stage 4 - creatinine is at baseline. 9. hyponatremia - due to lasix usage? Recheck in am for stability. 10. daughter mentioned that at [facility] her PTH level was apparently high. I reviewed the records that came with her but I do not see a PTH. Her calcium levels in July and now have been normal. Unsure why it was drawn - perhaps due to abnormal vitamin D or alk phos level? Will check vitamin D in am. 11. DVT proph - heparin q12h (until INR is therapeutic from coumadin). PT, OT evals speech also requested as patient mentioned mild pill dysphagia over the last few days -- perhaps related to sore throat from illness? [id number] I do not think she has aspiration pneumonia Continued [facility] stay due to: multiple IV medications needed Discharge planning: home with home health (?)
[2017-09-18 17:05] LABS: INFLUENZA A PCR Neg for Influ A (NEG); INFLUENZA B PCR Neg for Influ B (NEG)
[2017-09-18] MEDS ORDERED: ONDANSETRON INJ 2 MG/ML 2 ML VIAL IV PRN (17:15)
[2017-09-18] MEDS: GUAIFENESIN SUGAR FREE 100 MG/5 ML UDC PO SCH (17:24)
[2017-09-18] MEDS: HEPARIN SOD 5000 UNIT/0.5 ML CARP SQ SCH (20:50)
[2017-09-18] MEDS: LORAZEPAM 0.5 MG TAB PO SCH (21:02)
[2017-09-19] VITALS (7 sets, daily range): BP systolic 101–142; BP diastolic 67–91; PULSE 76–105; TEMP 36.3–36.7; O2SAT 90–96
[2017-09-19] MEDS: METHYLPREDNISOLONE IV 40 MG in SYRINGE 0 ML IV SCH ×2 (02:20→13:35)
[2017-09-19] MEDS: ACETAMINOPHEN 500 MG TAB PO SCH ×4 (06:00→20:50)
[2017-09-19] MEDS: GUAIFENESIN SUGAR FREE 100 MG/5 ML UDC PO SCH ×4 (06:09→17:48)
[2017-09-19] MEDS: LEVOTHYROXINE 50 MCG TAB PO SCH (06:09)
[2017-09-19] MEDS: ALBUT/IPRATROP 3MG/0.5MG NEB 3 ML VIAL INH SCH ×4 (07:12→19:10)
[2017-09-19 07:33] LABS: INR 2.3 (0.9-1.1)
[2017-09-19 07:51] LABS: BUN/CREATININE RATIO 19.8 (10-20); CALCIUM 8.9 mg/dl (8.5-10.1); CREATININE 1.73 mg/dl (0.60-1.20); POTASSIUM 4.1 mmol/L (3.5-5.1)
[2017-09-19 08:01] LABS: THYROID STIMULATING HORMONE 0.566 uIu/ml (0.300-4.500)
[2017-09-19] MEDS: POTASSIUM CHLORIDE 20 MEQ TABCR PO SCH (08:01)
[2017-09-19] MEDS: METOPROLOL TARTRATE 25 MG TAB PO SCH ×2 (08:01→20:38)
[2017-09-19] MEDS: LACTOBACILLUS ACIDOPHILUS (FLORANEX) TAB PO SCH ×2 (08:01→20:36)
[2017-09-19] MEDS: ATORVASTATIN 20 MG TAB PO SCH (08:01)
[2017-09-19] MEDS: DOXYCYCLINE HYCLATE 100 MG CAP PO SCH ×2 (08:01→20:37)
[2017-09-19] MEDS: FAMOTIDINE 20 MG TAB PO SCH (08:01)
[2017-09-19] MEDS: SENNA 8.6 MG TAB PO SCH (08:01)
[2017-09-19] MEDS: DILTIAZEM HCL 120 MG EXT REL CAP PO SCH (08:01)
[2017-09-19] MEDS: FUROSEMIDE 20 MG TAB PO SCH (08:01)
[2017-09-19] MEDS: AMIODARONE 200 MG TAB PO SCH (08:01)
[2017-09-19] MEDS: HEPARIN SOD 5000 UNIT/0.5 ML CARP SQ SCH ×2 (08:08→20:44)
[2017-09-19] MEDS ORDERED: ERGOCALCIFEROL 50,000 INTER.UNIT CAP PO SCH (10:00)
--- NOTE | 2017-09-19 13:12 | Hospitalist Progress Note ---
Hospitalist Progress Note Date of Service Sep 19, 2017. Subjective Pt evaluation today including: conversation w/ patient, physical exam, lab review, review of studies, review of inpatient medication list Voiding: no voiding problems Patient sitting in bedside chair. States chest congestion seems to be loosening. Denies SOB. +productive cough- sputum clear. Admits to difficultly with swallowing pills. Denies issue in past- states it started with acute illness. Speech consulted. Patient denies any fever, chills, sweats, lightheadedness, dizziness, vision changes, CP, palpitations, edema, SOB, wheezing, abdominal pain, nausea, vomiting, diarrhea, urinary symptoms, melena, numbness/tingling, weakness, muscle/joint pain, anxiety/depression, active bleeding, or new skin discoloration/changes. Medications Current Inpatient Medications Medications (Trade) Dose Ordered Sig/Margarette Route Start Time Stop Time Status Last Admin Dose Admin Albuterol/ Ipratropium (Duoneb) 3 ml Q6H PRN INH 09/17/17 18:30 10/17/17 18:29 Acetaminophen (Tylenol Tab) 1,000 mg Q8 PO 09/17/17 22:00 10/17/17 21:59 09/18/17 21:00 1,000 MG Amiodarone HCl (Cordarone Tab) 200 mg DAILY PO 09/18/17 08:00 10/18/17 07:59 09/19/17 08:01 200 MG Atorvastatin Calcium (Lipitor Tab) 20 mg DAILY PO 09/18/17 08:00 10/18/17 07:59 09/19/17 08:01 20 MG Diltiazem HCl (TIAzac CAP) 120 mg DAILY PO 09/18/17 08:00 10/18/17 07:59 09/19/17 08:01 120 MG Famotidine (Pepcid Tab) 20 mg DAILY PO 09/18/17 08:00 10/18/17 07:59 09/19/17 08:01 20 MG Furosemide (Lasix Tab) 20 mg DAILY PO 09/18/17 08:00 10/18/17 07:59 Future Hold 09/19/17 08:01 20 MG Albuterol/ Ipratropium (Duoneb) 3 ml QIDR INH 09/18/17 08:00 10/18/17 07:59 09/19/17 11:25 3 ML Levothyroxine Sodium (Synthroid Tab) 50 mcg DAILYBB PO 09/18/17 06:30 10/18/17 06:29 09/19/17 06:09 50 MCG Lorazepam (Ativan Tab) 0.5 mg HS PO 09/17/17 22:00 10/17/17 21:59 09/18/17 21:02 0.5 MG Metoprolol Tartrate (Lopressor Tab) 12.5 mg BID PO 09/18/17 08:00 10/18/17 07:59 09/19/17 08:01 12.5 MG Potassium Chloride (Klor-Con Tab) 20 meq DAILY PO 09/18/17 08:00 10/18/17 07:59 09/19/17 08:01 20 MEQ Warfarin Sodium (Coumadin Tab) 2.5 mg DAILY@1600 PO 09/17/17 22:30 10/17/17 22:29 09/18/17 15:59 2.5 MG Lactobacillus Acidophilus (Floranex Tab) 2 tab BID PO 09/18/17 08:00 10/18/17 07:59 09/19/17 08:01 2 TAB Senna (Senokot Tab) 17.2 mg DAILY PO 09/18/17 08:00 10/18/17 07:59 09/19/17 08:01 17.2 MG Methylprednisolone Sodium Succinate 40 mg/Syringe 0.64 ml @ 1.5 mls/min Q12H IV 09/18/17 13:45 10/18/17 13:44 09/19/17 02:20 1.5 MLS/MIN Doxycycline Hyclate (Vibramycin Cap) 100 mg BID PO 09/18/17 15:30 09/25/17 15:29 09/19/17 08:01 100 MG Guaifenesin (Robitussin Sugar Free Syrup) 100 mg Q6 PO 09/18/17 18:00 10/18/17 17:59 09/19/17 11:17 100 MG Benzonatate (Tessalon Perles Cap) 100 mg TID PRN PO 09/18/17 15:30 10/18/17 15:29 Heparin Sodium (Porcine) (Heparin Sq 5000 Unit/0.5ml) 5,000 unit Q12 SQ 09/18/17 21:00 10/18/17 20:59 09/19/17 08:08 5,000 UNIT Ondansetron HCl (Zofran Inj) 4 mg Q6H PRN IV 09/18/17 17:15 10/18/17 17:14 09/18/17 17:23 4 MG Ergocalciferol (Vitamin D Cap) 50,000 interunit Q7D@0900 PO 09/19/17 10:00 10/19/17 09:59 09/19/17 11:16 50,000 INTERUNIT Sodium Chloride 1,000 ml @ 75 mls/hr [id number] IV 09/19/17 12:30 10/19/17 12:29 Objective Vital Signs Date Time Temp Pulse Resp B/P (MAP) Pulse Ox O2 Delivery O2 Flow Rate FiO2 09/19/17 11:27 105 18 95 Room Air 09/19/17 08:00 Room Air 09/19/17 07:15 96 18 95 Room Air 09/19/17 07:03 36.3 92 16 142/91 (108) 92 Room Air 09/19/17 00:00 Room Air 09/18/17 22:56 36.3 80 20 112/71 (85) 94 Room Air 09/18/17 21:06 76 121/71 (88) 09/18/17 20:00 Room Air 09/18/17 18:51 111 18 95 Room Air 09/18/17 16:00 Room Air 09/18/17 14:49 36.6 91 20 115/73 (87) 95 09/18/17 14:31 91 18 95 Room Air Physical Exam General Appearance: no apparent distress Eyes: normal inspection, PERRL ENT: hearing grossly normal Neck: supple Respiratory/Chest: no respiratory distress, no accessory muscle use, + decreased breath sounds, + crackles (bilateral lung bases ), + rhonchi (diffuse ) Cardiovascular: + irregularly irregular (rate controlled ) Abdomen: normal bowel sounds, non tender, soft Extremities: no pedal edema, no calf tenderness Neurologic/Psychiatric: alert, normal mood/affect, oriented x 3 Skin: normal color, warm/dry, no rash Laboratory Results Last 24 Hours Test 09/18/17 15:50 09/19/17 06:58 Influenza Type A (RT-PCR) Neg for Influ A Influenza Type B (RT-PCR) Neg for Influ B Prothrombin Time 25.0 SECONDS Prothromb Time International Ratio 2.3 Sodium Level 135 mmol/L Potassium Level 4.1 mmol/L Chloride Level 98 mmol/L Carbon Dioxide Level 28 mmol/L Anion Gap 9.0 mmol/L Blood Urea Nitrogen 34 mg/dl Creatinine 1.73 mg/dl Est Creatinine Clear Calc Drug Dose 15.5 ml/min Estimated GFR () 30.9 Estimated GFR (Non- 26.6 BUN/Creatinine Ratio 19.8 Random Glucose 178 mg/dl Calcium Level 8.9 mg/dl Vitamin B12 Level 1338 pg/mL 25-Hydroxy Vitamin D Total 5.7 ng/ml Folate 8.43 ng/mL Thyroid Stimulating Hormone (TSH) 0.566 uIu/ml Assessment and Plan 82 y/[facility] ?[facility]. Acute bronchitis: - Admitted to med/surg - Rapid flu negative - Doxycycline 100mg BID- started on 09/18 - Solu-Medrol 40mg BID and taper - DuoNebs QID and PRN - Robitussin q6h - Encouraged incentive spirometry - Repeat CXR tomorrow AM ?Underlying COPD w/ smoking history: Consider outpatient PFTs Vitamin D deficiency: Start Vitamin D supplement 50,000 IU weekly x8 weeks, then reduce to 1,000 mg daily- follow-up outpatient ISHA on CKD stage III: - Hold Lasix 20 mg daily - Gently hydrate w/ IVF @ 75 ml/hr - Follow PRP Dysphagia: - Aspiration precautions - Speech therapy consulted Encephalopathy- RESOLVED: Continue supportive care A. fib- rate controlled: - Continue Coumadin- follow PT/INR and adjust dosage PRN for INR goal of 2-3 - Continue Lopressor 12.5 mg BID, Amiodarone 200 mg daily, Diltazem 120 mg daily Hypothyroidism- TSH 0.566: Continue Synthroid 50 mcg daily Thrombocytopenia- STABLE Hyponatremia- STABLE: Follow PRP GERD: Pepcid 20 mg daily DVT prophylaxis: Coumadin- will d/c Heparin SQ BID since INR now therapeutic Code Status: LEVEL I, FULL Dispo: Discharge to home once medically stable- PT/OT and CM consulted
[2017-09-19] MEDS: SODIUM CHLORIDE 0.9% 1000ML 1,000 ML IV SCH (13:36)
[2017-09-19] MEDS: WARFARIN SOD 2.5 MG TAB PO SCH (15:53)
[2017-09-19 19:12] LABS: URINE APPEARANCE CLOUDY (CLEAR); URINE BILIRUBIN NEG (NEG); URINE COLOR DK YELLOW; URINE EPITHELIAL CELL AUTO >30 /lpf (0-5); URINE NITRITE NEG (NEG); URINE SPECIFIC GRAVITY 1.025 (1.000-1.030); UROBILINOGEN NEG (NEG)
[2017-09-19 19:19] LABS: MANUAL MICROSCOPIC REQUIRED? NO; REVIEW REQ? YES
[2017-09-19] MEDS: LORAZEPAM 0.5 MG TAB PO SCH (20:35)
[2017-09-20] VITALS (8 sets, daily range): BP systolic 117–128; BP diastolic 54–61; PULSE 54–94; TEMP 36.3–36.4; O2SAT 91–96
[2017-09-20] MEDS: GUAIFENESIN SUGAR FREE 100 MG/5 ML UDC PO SCH ×5 (00:32→23:46)
[2017-09-20] MEDS: SODIUM CHLORIDE 0.9% 1000ML 1,000 ML IV SCH (01:14)
[2017-09-20] MEDS: METHYLPREDNISOLONE IV 40 MG in SYRINGE 0 ML IV SCH (01:15)
[2017-09-20] MEDS: LEVOTHYROXINE 50 MCG TAB PO SCH (05:54)
[2017-09-20] MEDS: ACETAMINOPHEN 500 MG TAB PO SCH ×3 (05:55→20:38)
[2017-09-20 06:29] LABS: INR 3.1 (0.9-1.1); PROTHROMBIN TIME (PATIENT) 35.2 SECONDS (9.0-12.0)
[2017-09-20] MEDS: ALBUT/IPRATROP 3MG/0.5MG NEB 3 ML VIAL INH SCH ×4 (07:03→19:36)
[2017-09-20] MEDS: AMIODARONE 200 MG TAB PO SCH (07:32)
[2017-09-20] MEDS: LACTOBACILLUS ACIDOPHILUS (FLORANEX) TAB PO SCH ×2 (07:32→20:39)
[2017-09-20] MEDS: SENNA 8.6 MG TAB PO SCH (07:32)
[2017-09-20] MEDS: HEPARIN SOD 5000 UNIT/0.5 ML CARP SQ SCH (07:32)
[2017-09-20] MEDS: FAMOTIDINE 20 MG TAB PO SCH (07:32)
[2017-09-20] MEDS: METOPROLOL TARTRATE 25 MG TAB PO SCH ×2 (07:32→20:39)
[2017-09-20] MEDS: POTASSIUM CHLORIDE 20 MEQ TABCR PO SCH (07:32)
[2017-09-20] MEDS: ATORVASTATIN 20 MG TAB PO SCH (07:32)
[2017-09-20] MEDS: DILTIAZEM HCL 120 MG EXT REL CAP PO SCH (07:33)
[2017-09-20] MEDS: DOXYCYCLINE HYCLATE 100 MG CAP PO SCH (07:33)
--- NOTE | 2017-09-20 09:02 | DIAGNOSTIC IMAGING REPORT ---
CHEST 2 VIEWS ROUTINE CLINICAL HISTORY: Cough COMPARISON STUDY: 09/18/2017 FINDINGS: The patient is mildly rotated. The heart is mildly enlarged. There is no focal pulmonary consolidation. There is mild interstitial thickening similar to the preceding study. The bones are osteopenic and multiple vertebral body compression deformities are again evident.[ No pleural effusions are visualized. There is scattered air-fluid levels within the visualized portions of the abdomen. IMPRESSION: No significant change from the prior study. Mild cardiomegaly and chronic interstitial thickening. No acute parenchymal consolidation. Multiple thoracic compression deformities. Electronically signed by: Greg Bernabe M.D. 09/20/2017 9:00 AM Dictated Date/Time: 09/20/2017 8:59 AM
[2017-09-20 09:04] LABS: BUN/CREATININE RATIO 25.3 (10-20); CALCIUM 8.6 mg/dl (8.5-10.1); CREATININE 1.87 mg/dl (0.60-1.20); POTASSIUM 4.2 mmol/L (3.5-5.1)
[2017-09-20 10:52] LABS: LEGIONELLA ANTIGEN NOT DETECTED (NOT DETECTED)
--- NOTE | 2017-09-20 11:10 | Hospitalist Progress Note ---
Hospitalist Progress Note Date of Service Sep 20, 2017. Subjective Pt evaluation today including: conversation w/ patient, physical exam, lab review, review of studies, review of inpatient medication list Voiding: no voiding problems Patient sitting in bedside chair. Eating and drinking OK. Denies any issues of choking or coughing after eating. Denies SOB. Productive cough continues, but seems to be improving. Times of confusion noted. Alert/oriented x3. Patient denies any fever, chills, sweats, lightheadedness, dizziness, vision changes, CP, palpitations, edema, SOB, wheezing, abdominal pain, nausea, vomiting, diarrhea, urinary symptoms, melena, numbness/tingling, weakness, muscle/joint pain, anxiety/depression, active bleeding, or new skin discoloration/changes. Medications Current Inpatient Medications Medications (Trade) Dose Ordered Sig/Margarette Route Start Time Stop Time Status Last Admin Dose Admin Albuterol/ Ipratropium (Duoneb) 3 ml Q6H PRN INH 09/17/17 18:30 10/17/17 18:29 09/20/17 02:09 3 ML Acetaminophen (Tylenol Tab) 1,000 mg Q8 PO 09/17/17 22:00 10/17/17 21:59 09/20/17 05:55 1,000 MG Amiodarone HCl (Cordarone Tab) 200 mg DAILY PO 09/18/17 08:00 10/18/17 07:59 09/20/17 07:32 200 MG Atorvastatin Calcium (Lipitor Tab) 20 mg DAILY PO 09/18/17 08:00 10/18/17 07:59 09/20/17 07:32 20 MG Diltiazem HCl (TIAzac CAP) 120 mg DAILY PO 09/18/17 08:00 10/18/17 07:59 09/20/17 07:33 120 MG Famotidine (Pepcid Tab) 20 mg DAILY PO 09/18/17 08:00 10/18/17 07:59 09/20/17 07:32 20 MG Furosemide (Lasix Tab) 20 mg DAILY PO 09/18/17 08:00 10/18/17 07:59 Future Hold 09/19/17 08:01 20 MG Albuterol/ Ipratropium (Duoneb) 3 ml QIDR INH 09/18/17 08:00 10/18/17 07:59 09/20/17 07:03 3 ML Levothyroxine Sodium (Synthroid Tab) 50 mcg DAILYBB PO 09/18/17 06:30 10/18/17 06:29 09/20/17 05:54 50 MCG Lorazepam (Ativan Tab) 0.5 mg HS PO 09/17/17 22:00 10/17/17 21:59 09/19/17 20:35 0.5 MG Metoprolol Tartrate (Lopressor Tab) 12.5 mg BID PO 09/18/17 08:00 10/18/17 07:59 09/20/17 07:32 12.5 MG Potassium Chloride (Klor-Con Tab) 20 meq DAILY PO 09/18/17 08:00 10/18/17 07:59 09/20/17 07:32 20 MEQ Warfarin Sodium (Coumadin Tab) 2.5 mg DAILY@1600 PO 09/17/17 22:30 10/17/17 22:29 09/19/17 15:53 2.5 MG Lactobacillus Acidophilus (Floranex Tab) 2 tab BID PO 09/18/17 08:00 10/18/17 07:59 09/20/17 07:32 2 TAB Senna (Senokot Tab) 17.2 mg DAILY PO 09/18/17 08:00 10/18/17 07:59 09/20/17 07:32 17.2 MG Guaifenesin (Robitussin Sugar Free Syrup) 100 mg Q6 PO 09/18/17 18:00 10/18/17 17:59 09/20/17 05:54 100 MG Benzonatate (Tessalon Perles Cap) 100 mg TID PRN PO 09/18/17 15:30 10/18/17 15:29 Heparin Sodium (Porcine) (Heparin Sq 5000 Unit/0.5ml) 5,000 unit Q12 SQ 09/18/17 21:00 10/18/17 20:59 09/19/17 08:08 5,000 UNIT Ondansetron HCl (Zofran Inj) 4 mg Q6H PRN IV 09/18/17 17:15 10/18/17 17:14 09/18/17 17:23 4 MG Ergocalciferol (Vitamin D Cap) 50,000 interunit Q7D@0900 PO 09/19/17 10:00 10/19/17 09:59 09/19/17 11:16 50,000 INTERUNIT Sodium Chloride 1,000 ml @ 75 mls/hr [id number] IV 09/19/17 12:30 10/19/17 12:29 09/20/17 01:14 75 MLS/HR Prednisone (PredniSONE TAB) 40 mg DAILY PO 09/21/17 08:00 10/21/17 07:59 Prednisone (PredniSONE TAB) 20 mg 1400 ONCE PO 09/20/17 14:00 09/20/17 14:01 Objective Vital Signs Date Time Temp Pulse Resp B/P (MAP) Pulse Ox O2 Delivery O2 Flow Rate FiO2 09/20/17 07:45 Room Air 09/20/17 07:03 71 22 91 Room Air 09/20/17 07:00 36.4 80 20 117/59 (78) 93 Room Air 09/20/17 04:00 36.4 85 20 128/61 (83) 96 Room Air 09/20/17 02:09 94 26 94 Room Air 09/20/17 00:30 Room Air 09/19/17 23:01 36.4 98 18 127/83 (98) 93 Room Air 09/19/17 19:10 76 18 92 Room Air 09/19/17 16:00 Room Air 09/19/17 15:50 36.7 84 18 101/67 (78) 90 Room Air 09/19/17 15:28 94 18 96 Room Air 09/19/17 11:27 105 18 95 Room Air Physical Exam General Appearance: no apparent distress Eyes: normal inspection, PERRL ENT: hearing grossly normal Neck: supple Respiratory/Chest: no respiratory distress, no accessory muscle use, + crackles (throughout lung lombardo), + rhonchi (throughout lung lombardo) Cardiovascular: + irregularly irregular (rate controlled ) Abdomen: normal bowel sounds, non tender, soft Extremities: no pedal edema, no calf tenderness Neurologic/Psychiatric: alert, normal mood/affect, oriented x 3 Skin: normal color, warm/dry, no rash Laboratory Results Last 24 Hours Test 09/19/17 19:00 09/20/17 06:05 Urine Color DK YELLOW Urine Appearance CLOUDY Urine pH 5.0 Urine Specific Letts 1.025 Urine Protein NEG Urine Glucose (UA) NEG Urine Ketones TRACE Urine Occult Blood NEG Urine Nitrite NEG Urine Bilirubin NEG Urine Urobilinogen NEG Urine Leukocyte Esterase NEG Urine WBC (Auto) 1-5 /hpf Urine RBC (Auto) 0-4 /hpf Urine Hyaline Casts (Auto) 10-30 /lpf Urine Epithelial Cells (Auto) >30 /lpf Urine Bacteria (Auto) NEG Urine Renal Epithelial Cells 10-20 /lpf Urine Crystals CALCIUM OXALATE Urine Pathogenic Casts /lpf Prothrombin Time 35.2 SECONDS Prothromb Time International Ratio 3.1 Sodium Level 139 mmol/L Potassium Level 4.2 mmol/L Chloride Level 102 mmol/L Carbon Dioxide Level 27 mmol/L Anion Gap 9.0 mmol/L Blood Urea Nitrogen 47 mg/dl Creatinine 1.87 mg/dl Est Creatinine Clear Calc Drug Dose 14.4 ml/min Estimated GFR () 28.1 Estimated GFR (Non- 24.3 BUN/Creatinine Ratio 25.3 Random Glucose 230 mg/dl Calcium Level 8.6 mg/dl Assessment and Plan 82 y/o female who presented from [facility] rehab for ?PNA. Acute bronchitis: - Admitted to med/surg - Rapid flu negative - Urine Legionella negative - Doxycycline 100mg BID- started on 09/18- discontinued due to bump in kidney function, no s/s of infectious process at this time - Solu-Medrol 40mg BID- transitioned to PO Prednisone today and continue taper - DuoNebs QID and PRN - Robitussin q6h - Encouraged incentive spirometry - Repeat CXR on 09/20- stable without significant change, no evidence of consolidation ?Underlying COPD w/ smoking history: Consider outpatient PFTs Vitamin D deficiency: Start Vitamin D supplement 50,000 IU weekly x8 weeks ( given 09/19), then reduce to 1,000 mg daily- follow-up outpatient ISHA on CKD stage III, ?secondary to dehydration: - Hold Lasix 20 mg daily - Discontinue Doxycycline - Gently hydrate w/ IVF @ 75 ml/hr - Follow PRP Dysphagia: - Aspiration precautions - Speech therapy consulted- recommendations noted Hyperglycemia, likely secondary to IV steroids- last HgbA1c 6.3% on 07/23/17: - BSG ACHS and sliding insulin scale while inpatient Encephalopathy- RESOLVED: Continue supportive care A. fib- rate controlled: - Continue Coumadin- follow PT/INR and adjust dosage PRN for INR goal of 2-3 -- INR 3.1 today- will decrease from 2.5 mg to 1 mg tonight - Continue Lopressor 12.5 mg BID, Amiodarone 200 mg daily, Diltazem 120 mg daily Hypothyroidism- TSH 0.566: Continue Synthroid 50 mcg daily Thrombocytopenia- STABLE Hyponatremia, likely secondary to dehydration/Lasix- RESOLVED: Follow PRP GERD: Pepcid 20 mg daily DVT prophylaxis: Coumadin Code Status: LEVEL I, FULL Dispo: Discharge to home once medically stable- PT/OT and CM consulted
[2017-09-20] MEDS ORDERED: GLUCAGON FOR INJ 1 MG VIAL SQ PRN (13:00)
[2017-09-20] MEDS ORDERED: GLUCOSE 40% GEL 15 GM TUBE PO PRN (13:00)
[2017-09-20] MEDS ORDERED: GLUCOSE 10 TABS/TUBE PO PRN (13:00)
[2017-09-20] MEDS ORDERED: DEXTROSE 50% 50 ML SYR IV PRN (13:00)
[2017-09-20] MEDS ORDERED: WARFARIN SOD 1 MG TAB PO SCH (16:00)
[2017-09-20] MEDS: INSULIN ASPART 100 UNITS/ML 3 ML PEN SC SCH ×2 (17:57→20:43)
[2017-09-20] MEDS: LORAZEPAM 0.5 MG TAB PO SCH (20:40)
[2017-09-21] VITALS: BP 146/81; PULSE 63; TEMP 36.7; O2SAT 95
[2017-09-21] MEDS: LEVOTHYROXINE 50 MCG TAB PO SCH (05:49)
[2017-09-21] MEDS: GUAIFENESIN SUGAR FREE 100 MG/5 ML UDC PO SCH ×2 (05:49→12:31)
[2017-09-21] MEDS: ACETAMINOPHEN 500 MG TAB PO SCH ×2 (05:50→13:06)
[2017-09-21 06:56] VITALS: BP 135/79; PULSE 67; TEMP 36.6; O2SAT 96
[2017-09-21 06:56] LABS: BUN/CREATININE RATIO 31.4 (10-20); CALCIUM 8.9 mg/dl (8.5-10.1); CREATININE 1.43 mg/dl (0.60-1.20); POTASSIUM 4.8 mmol/L (3.5-5.1)
[2017-09-21] MEDS: ALBUT/IPRATROP 3MG/0.5MG NEB 3 ML VIAL INH SCH ×2 (06:56→11:10)
[2017-09-21 06:59] VITALS: PULSE 67; O2SAT 94
[2017-09-21] MEDS: INSULIN ASPART 100 UNITS/ML 3 ML PEN SC SCH ×2 (08:45→12:32)
[2017-09-21] MEDS: ATORVASTATIN 20 MG TAB PO SCH (08:48)
[2017-09-21] MEDS: POTASSIUM CHLORIDE 20 MEQ TABCR PO SCH (08:48)
[2017-09-21] MEDS: LACTOBACILLUS ACIDOPHILUS (FLORANEX) TAB PO SCH (08:48)
[2017-09-21] MEDS: AMIODARONE 200 MG TAB PO SCH (08:48)
[2017-09-21] MEDS: METOPROLOL TARTRATE 25 MG TAB PO SCH (08:48)
[2017-09-21] MEDS: FAMOTIDINE 20 MG TAB PO SCH (08:48)
[2017-09-21] MEDS: DILTIAZEM HCL 120 MG EXT REL CAP PO SCH (08:49)
[2017-09-21] MEDS: SENNA 8.6 MG TAB PO SCH (08:49)
[2017-09-21] MEDS ORDERED: IPRA1AER2 INH (10:14)
[2017-09-21] MEDS ORDERED: PRED10TA PO (10:14)
[2017-09-21] MEDS ORDERED: ERGO500011 PO (10:14)
--- NOTE | 2017-09-21 10:20 | Discharge Summary ---
Discharge Summary Date of Service Sep 21, 2017. Discharge Summary Admission Date: Sep 17, 2017 at 18:06 Discharge Disposition: Home (with / supervision ) Principal Diagnosis: Acute bronchitis Problems/Secondary Diagnoses: ?Underlying COPD w/ smoking history Vitamin D deficiency ISHA on CKD stage III Dysphagia Hyperglycemia, likely secondary to IV steroids- last HgbA1c 6.3% on 07/23/17: BSG ACHS and sliding insulin scale while inpatient Encephalopathy A. fib Hypothyroidism Thrombocytopenia Hyponatremia GERD Procedures: CHEST ONE VIEW PORTABLE CLINICAL HISTORY: 82 years-old Female presenting with pneumonia. TECHNIQUE: Portable upright AP view of the chest was obtained. COMPARISON: 07/20/2017. FINDINGS: Atherosclerosis of aortic arch. Cardiac silhouette top normal in size allowing for portable AP technique. Bibasilar linear opacities greater on the left. Prominent lung markings. No large effusion or pneumothorax. Osteopenia. Scoliotic curvature of the spine. Upper abdomen normal. IMPRESSION: 1. Bibasilar opacities greater on the left, possibly atelectasis or aspiration. 2. Prominent lung markings could suggest underlying chronic lung disease such as emphysema. Electronically signed by: Shaun Allison M.D. 09/17/2017 7:15 PM Dictated Date/Time: 09/17/2017 7:12 PM The status of this report is Signed. Draft = Not yet reviewed or approved by Radiologist. Signed = Reviewed and approved by Radiologist. CHEST 2 VIEWS ROUTINE HISTORY: 82 years-old Female pneumonia acute pneumonia. Follow-up study. COMPARISON: Chest radiograph 09/17/2017 TECHNIQUE: PA and lateral views of the chest FINDINGS: Cardiac silhouette is mildly enlarged, unchanged. There is atherosclerosis of the aorta. Diffuse coarsened interstitial opacities are again seen within the lungs bilaterally suggesting chronic changes with hyperinflation and increased lucency. Linear subsegmental left basilar opacities suggest atelectasis. There is improved aeration of the lung bases. Several mid and lower thoracic compression deformities are seen, which are age-indeterminate. Background moderate bone demineralization. IMPRESSION: 1. Probable emphysema with chronic interstitial appearing opacities . 2. Improved aeration of the lung bases with linear subsegmental opacities on the left suggesting atelectasis/scarring. 3. Osteopenia with several mid and lower thoracic compression deformities, age indeterminate. The above report was generated using voice recognition software. It may contain grammatical, syntax or spelling errors. Electronically signed by: Alin Sexton M.D. 09/18/2017 9:15 AM Dictated Date/Time: 09/18/2017 9:11 AM The status of this report is Signed. Draft = Not yet reviewed or approved by Radiologist. Signed = Reviewed and approved by Radiologist. CHEST 2 VIEWS ROUTINE CLINICAL HISTORY: Cough COMPARISON STUDY: 09/18/2017 FINDINGS: The patient is mildly rotated. The heart is mildly enlarged. There is no focal pulmonary consolidation. There is mild interstitial thickening similar to the preceding study. The bones are osteopenic and multiple vertebral body compression deformities are again evident.[ No pleural effusions are visualized. There is scattered air-fluid levels within the visualized portions of the abdomen. IMPRESSION: No significant change from the prior study. Mild cardiomegaly and chronic interstitial thickening. No acute parenchymal consolidation. Multiple thoracic compression deformities. Electronically signed by: Greg Bernabe M.D. 09/20/2017 9:00 AM Dictated Date/Time: 09/20/2017 8:59 AM The status of this report is Signed. Draft = Not yet reviewed or approved by Radiologist. Signed = Reviewed and approved by Radiologist. Medication Reconciliation New Medications: Ipratropium-Albuterol (Combivent Respimat) 1 Aer Aer 2 PUFFS INH QID, #1 INH Prednisone Tab (Prednisone) 10 Mg Tab 10 MG PO UD for 11 Days, #27 TAB 40 mg daily x3 days 30 mg daily x3 days 20 mg daily x2 days 10 mg daily x2 days Ergocalciferol (Vitamin D 18433 Unit) 50,000 Unit Cap 41485 INTERUNIT PO Q7D@0900, #7 CAP Continued Medications: Acetaminophen (Tylenol) 500 Mg Tab 2 TAB PO Q6 for Pain for 2 Days, #20 TAB 3 Refills Amiodarone Hcl (Cordarone) 200 Mg Tab 200 MG PO DAILY, TAB Atorvastatin (Lipitor) 20 Mg Tab 20 MG PO DAILY, TAB Diltiazem Hcl Extended Release (Diltiazem Hcl Er) 120 Mg Cap 1 CAP PO DAILY Famotidine (Pepcid) 20 Mg Tab 20 MG PO DAILY, TAB Furosemide (Lasix) 20 Mg Tab 1 TAB PO DAILY for 90 Days, #90 TAB 1 Refill Ipratropium-Albuterol (Duoneb) 3 Ml Nebu 1 TREATMENT INH QID, INHA Lactobacillus (Acidophilus) 1 Cap Cap 2 CAP PO BID Levothyroxine Sodium (Synthroid) 50 Mcg Tab 50 MCG PO DAILY, TAB Lorazepam (Ativan) 0.5 Mg Tab 0.5 MG PO QHS, TAB Metoprolol Tartrate (Lopressor) 25 Mg Tab 12.5 MG PO BID for 30 Days, #30 TAB Potassium Ext Rel (Klor-Con) 20 Meq Tabcr 20 MEQ PO DAILY, TAB Sennosides (Senna) 8.6 Mg Cap 2 TABS PO DAILY Discontinued Medications: Acetaminophen W/ Codeine (Tylenol W/Codeine #3) 1 Tab Tab 1 TAB PO TID PRN for Pain for 30 Days, #90 TAB Ceftriaxone Sod (Ceftriaxone Sodium) 1 Gm Inj 1 GM IM DAILY Warfarin Sod (Coumadin) 2.5 Mg Tab 2.5 MG PO DAILY for 30 Days Discharge Exam Review of Systems: Constitutional: No fever, No chills, No sweats, No weakness, No fatigue Eyes: No worsening of vision ENT: No hearing loss Respiratory: + cough, + sputum (clear), No wheezing, No shortness of breath , No hemoptysis Cardiovascular: No chest pain, No edema, No palpitations Abdomen: No pain, No nausea, No vomiting, No diarrhea, No constipation Musculoskeletal: No joint pain, No muscle pain, No swelling, No calf pain Genitourinary - Female: No dysuria, No hematuria Neurologic: No weakness, No numbness/tingling Psychiatric: No depression symptoms, No anxiety Endocrine: No fatigue Hematologic / Lymphatic: No abnormal bleeding/bruising Integumentary: No rash, No itch, No new/changing skin lesions Physical Exam: General Appearance: no apparent distress Eyes: normal inspection, PERRL ENT: hearing grossly normal Neck: supple Respiratory/Chest: no respiratory distress, no accessory muscle use, + decreased breath sounds (throughout ), + rhonchi (throughout ) Cardiovascular: + irregularly irregular (rate controlled ) Abdomen / GI: normal bowel sounds, non tender, soft Extremities: no calf tenderness, no pedal edema Neurologic/Psychiatric: alert, normal mood/affect, oriented x 3 Skin: normal color, warm/dry, no rash Hospital Course Admission HPI 82 year old female from long-term presents to [facility] for a direct admission. Patient had been treated for about 5 days for pneumonia. Patient had no significant improvement. Patient was also taking cipro for UTI. Patient was confused by NH staff and family and transfer was called to this hospital. Patient on arrival has improved after change of antibioitc and steroid dose. patient at this time is no longer confused. Hospital Course: 82 y/[facility] ?[facility]. Acute bronchitis: - Admitted to med/surg - Rapid flu negative - Urine Legionella negative - Doxycycline 100mg BID- started on 09/18- discontinued due to bump in kidney function, no s/s of infectious process at this time - Solu-Medrol 40mg BID- transitioned to PO Prednisone continue taper at discharge - DuoNebs QID and PRN- discharge w/ Combivent - Robitussin q6h - Encouraged incentive spirometry and flutter valve - Repeat CXR on 09/20- stable without significant change, no evidence of consolidation ?Underlying COPD w/ smoking history: Consider outpatient PFTs Vitamin D deficiency: Start Vitamin D supplement 50,000 IU weekly x8 weeks ( given 09/19), then reduce to 1,000 mg daily- follow-up outpatient ISHA on CKD stage III, ?secondary to dehydration- IMPROVED- Cr. 1.4 at discharge: - Hold Lasix 20 mg daily- resume at discharge - Discontinue Doxycycline - Gently hydrate w/ IVF @ 75 ml/hr - Follow PRP Dysphagia: - Aspiration precautions - Speech therapy consulted- recommendations noted Hyperglycemia, likely secondary to IV steroids- last HgbA1c 6.3% on 07/23/17: BSG ACHS and sliding insulin scale while inpatient Encephalopathy- RESOLVED: Continue supportive care A. fib- rate controlled: - Continue Coumadin- follow PT/INR and adjust dosage PRN for INR goal of 2-3 -- INR 4.7 at discharge- instructed patient to hold Coumadin and daily INR checks at home as she has been doing - Continue Lopressor 12.5 mg BID, Amiodarone 200 mg daily, Diltazem 120 mg daily Hypothyroidism- TSH 0.566: Continue Synthroid 50 mcg daily Thrombocytopenia- STABLE Hyponatremia, likely secondary to dehydration/Lasix- RESOLVED: Follow PRP GERD: Pepcid 20 mg daily DVT prophylaxis: Coumadin Code Status: LEVEL I, FULL Dispo: Discharge to home w/ 30/05 supervision Total Time Spent: Greater than 30 minutes This includes examination of the patient, discharge planning, medication reconciliation, and communication with other providers. Discharge Instructions Please refer to the electronic Patient Visit Report (Discharge Instructions) for additional information. Follow-Up Please follow-up with your PCP within 5-7 days Daily INR checks Please follow-up/keep all of your subspecialty appointments Additional Copies To Ty Guidry M.D.
[2017-09-21 10:52] LABS: PROTHROMBIN TIME (PATIENT) 53.8 SECONDS (9.0-12.0)
[2017-09-21 10:56] LABS: INR 4.7 (0.9-1.1)
[2017-09-21 11:11] VITALS: PULSE 63; O2SAT 93
--- NOTE | 2017-09-21 11:12 | Discharge Instructions ---
Discharge Instructions Date of Service Sep 21, 2017. Admission Reason for Admission: Pneumonia Discharge Discharge Diagnosis / Problem: Acute bronchitis Discharge Goals Goal(s): Decrease discomfort, Improve function, Increase independence, Improve disease control, Learn about illness, Diagnostic testing, Therapeutic intervention, Prevent Disease Progression Activity Recommendations Activity Limitations: resume your previous activity . Instructions / Follow-Up Instructions / Follow-Up You were admitted to [facility] due to acute bronchitis. You were treated with IV steroids and fluids, antibiotics, and nebulizer treatments. Your symptoms have improved and you are now stable for discharge. Acute bronchitis: Prednisone taper: 40 mg once daily x3 days (09/22-09/24) 30 mg once daily x3 days (09/25-09/27) 20 mg once daily x2 days (09/28-09/29 10 mg once daily x2 days (09/30-10/01) Combivent inhaler- 2 puffs 4 times daily You were found to be vitamin D deficient during your stay You will be treated with Vitamin D 50,000 IU once weekly x8 weeks- your next dose will be on 09/26. You will need continued follow-up with your PCP. Your INR level is elevated- HOLD Coumadin. Check INR daily as you have been doing at home- you will then be further instructed on your Coumadin dosage Resume all other regular home medications as prescribed FOLLOW-UPS: Please follow-up with your PCP within 5-7 days You will need your INR checked... Please follow-up/keep all of your subspecialty appointments Current Hospital Diet Patient's current hospital diet: Regular Diet Discharge Diet Recommended Diet: Regular Diet Pending Studies Studies pending at discharge: no Laboratory Results Hemoglobin A1c Test 07/23/17 15:25 Range/Units Estimated Average Glucose 134 mg/dl Hemoglobin A1c 6.3 H 4.5-5.6 % Medical Emergencies . Who to Call and When: Medical Emergencies: If at any time you feel your situation is an emergency, please call 911 immediately. . Non-Emergent Contact Non-Emergency issues call your: Primary Care Provider . . "Provider Documentation" section prepared by Juliana Ramesh. . VTE Core Measure Inpt VTE Proph given/why not?: Warfarin (Coumadin)
[2017-09-21 12:58] VITALS: BP 135/79; PULSE 63; TEMP 36.6; O2SAT 93
== END 2017-09-21 14:21 | disposition home health service (06) | DRG 202 ==
LOC: C.MS4W 18:06
PROVIDERS: ADMIT Internal Medicine Sports Medicine; ATTEND Internal Medicine
DX: J20.9 Acute bronchitis, unspecified (principal); G93.41 Metabolic encephalopathy; J98.11 Atelectasis; N18.4 Chronic kidney disease, stage 4 (severe); E87.1 Hypo-osmolality and hyponatremia; N17.9 Acute kidney failure, unspecified; I48.91 Unspecified atrial fibrillation; E03.9 Hypothyroidism, unspecified; R13.10 Dysphagia, unspecified; D69.6 Thrombocytopenia, unspecified; R73.9 Hyperglycemia, unspecified; T38.0X5A Adverse effect of glucocorticoids and synthetic analogues, initial encounter; E86.0 Dehydration; K21.9 Gastro-esophageal reflux disease without esophagitis; E55.9 Vitamin D deficiency, unspecified; Z79.01 Long term (current) use of anticoagulants; Z79.899 Other long term (current) drug therapy; Z87.891 Personal history of nicotine dependence